=== PATIENT | female | born 1935 | race Caucasian/White ===

== ENCOUNTER → 2016-04-19 | Outpatient (CLI) | payer MEDICARE, BC ==
--- NOTE | 2016-04-19 16:37 | US ---
EXAMINATION TYPE: US carotid duplex BILAT DATE OF EXAM: 04/19/2016 3:53 PM COMPARISON: NONE CLINICAL HISTORY: R09.89 BRUIT OF LT CAROTID ARTERY. EXAM MEASUREMENTS: RIGHT: Peak Systolic Velocity (PSV) cm/sec ----- Right CCA: 103.0 ----- Right ICA: 203.0 ----- Right ECA: 138.0 ICA/CCA ratio: 1.9 RIGHT: End Diastole cm/sec ----- Right CCA: 14.5 ----- Right ICA: 46.5 ----- Right ECA: 10.4 LEFT: Peak Systolic Velocity (PSV) cm/sec ----- Left CCA: 120.0 ----- Left ICA: 148.0 ----- Left ECA: 224.0 ICA/CCA ratio: 1.2 LEFT: End Diastole cm/sec ----- Left CCA: 21.2 ----- Left ICA: 29.7 ----- Left ECA: 9.3 VERTEBRALS (direction of flow): Right Vertebral: Antegrade Left Vertebral: unable to detect TECHNOLOGIST IMPRESSION: extensive plaque throughout all vessels, elevated velocities in right ICA a nd left ICA and ECA. Grayscale, color Doppler, spectral Doppler imaging performed of the carotid arteries IMPRESSION: Hemodynamic significant stenosis of the proximal internal carotid artery on the right co rresponding to approximately 50-69% diameter stenosis by Doppler criteria, and indirect measurement o f carotid stenosis. There is common carotid artery disease bilaterally. Consider carotid CTA Criteria for Assigning % of Stenosis / Diameter reduction (Estimation based on the indirect measurements of the internal carotid artery velocities (ICA PSV). 1. Normal (no stenosis)=ICA PSV < 125 cm/s: ratio < 2.0: ICA EDV<40 cm/s. 2. Less than 50% stenosis=ICA PSV < 125 cm/s: ratio < 2.0: ICA EDV<40 cm/s. 3. 50 to 69% stenosis=ICA PSV of 125 to 230 cm/s: ration 2.0 ? 4.0: ICA EDV 40-100 cm/s. 4. Greater than 70% stenosis to near occlusion= ICA PSV > 230 cm/s: ratio > 4.0: ICA EDV > 100 cm/s. 5. Near occlusion= ICA PSV velocities may be low or undetectable: variable ratio and ICA EDV. 6. Total occlusion=unable to detect flow.
--- NOTE | 2016-04-23 06:49 | MM ---
Reason for exam: screening (asymptomatic). Last mammogram was performed 1 year and 1 month ago. History: Patient is postmenopausal and has history of other cancer at age 73. Family history of breast cancer in maternal grandmother. Took progesterone for 3 months. Physical Findings: A clinical breast exam by your physician is recommended on an annual basis and results should be correlated with mammographic findings. MG 3D Screening Mammo W/Cad Bilateral CC and MLO view(s) were taken. Prior study comparison: March 29, 2015, bilateral MG 3d diag mammo w/cad JASON. September 05, 2014, right breast MG diagnostic mammo RT w CAD. March 18, 2014, right breast MG work up mamm w CAD RT. March 08, 2014, bilateral MG screening mammo w CAD. March 01, 2013, bilateral digital screening mammo w/CAD. There are scattered fibroglandular densities. A nodular asymmetry in the right breast just medial to the retroareolar plane appears more defined and incompletely disperses on tomosynthesis. ASSESSMENT: Incomplete: need additional imaging evaluation, BI-RAD 0 RECOMMENDATION: Special view mammogram of the right breast. If lesion persists on supplemental views, image directed ultrasound is recommended. [facility] will attempt to contact patient to return for supplemental views and ultrasound if indicated.
== END | disposition home or self-care (01) ==
LOC: RADMAMWWP 14:37
PROVIDERS: ATTEND Family Medicine
DX: Z12.31 Encounter for screening mammogram for malignant neoplasm of breast (principal); I65.21 Occlusion and stenosis of right carotid artery; R92.2 Inconclusive mammogram
CPT/HCPCS: 77063; 93880; G0202

== ENCOUNTER → 2016-05-07 | Outpatient (CLI) | payer MEDICARE, BC ==
--- NOTE | 2016-05-08 07:26 | MM ---
Reason for exam: additional evaluation requested from abnormal screening. Last mammogram was performed 1 month ago. History: Patient is postmenopausal and has history of other cancer at age 73. Family history of breast cancer in maternal grandmother. Took progesterone for 3 months. Physical Findings: Nurse did not find any significant physical abnormalities on exam. MG 3D Work Up W/Cad RT LM and spot compression CC view(s) were taken of the right breast. Prior study comparison: April 19, 2016, bilateral MG 3d screening mammo w/cad. March 29, 2015, bilateral MG 3d diag mammo w/cad JASON. September 05, 2014, right breast MG diagnostic mammo RT w CAD. There are scattered fibroglandular densities. 4mm round lesion does not completely go away on spot CC view not clearly seen on lateral view. These results were verbally communicated with the patient and result sheet given to the patient on 05/07/16. ASSESSMENT: Probably benign, BI-RAD 3 RECOMMENDATION: Follow-up diagnostic mammogram of the right breast in 6 months.
== END | disposition home or self-care (01) ==
LOC: RADMAMWWP 14:42
PROVIDERS: ATTEND Family Medicine
DX: R92.8 Other abnormal and inconclusive findings on diagnostic imaging of breast (principal)
CPT/HCPCS: G0206; G0279

== ENCOUNTER → 2016-11-19 | Outpatient (CLI) | payer MEDICARE, BC ==
--- NOTE | 2016-11-19 14:16 | MM ---
Reason for exam: follow-up at short interval from prior study. Last mammogram was performed 6 months ago. History: Patient is postmenopausal and has history of other cancer at age 73. Family history of breast cancer in maternal grandmother. Took progesterone for 3 months. Physical Findings: Nurse did not find any significant physical abnormalities on exam. MG 3D Diag Mammo W/Cad RT CC and MLO view(s) were taken of the right breast. Prior study comparison: May 07, 2016, right breast MG 3d work up w/cad RT. April 19, 2016, bilateral MG 3d screening mammo w/cad. There are scattered fibroglandular densities. Benign calcifications. There is no discrete abnormality including area of concern. No significant new findings when compared with previous films. These results were verbally communicated with the patient and result sheet given to the patient on 11/19/16. ASSESSMENT: Benign, BI-RAD 2 RECOMMENDATION: Return to routine screening mammogram schedule for both breasts. Back on schedule.
== END | disposition home or self-care (01) ==
LOC: RADMAMWWP 12:51
PROVIDERS: ATTEND Family Medicine
DX: R92.8 Other abnormal and inconclusive findings on diagnostic imaging of breast (principal)
CPT/HCPCS: G0206; G0279

== ENCOUNTER → 2017-06-25 | Outpatient (CLI) | payer MEDICARE, BC ==
--- NOTE | 2017-06-26 10:11 | MM ---
Reason for exam: screening (asymptomatic). Last mammogram was performed 7 months ago. History: Patient is postmenopausal and has history of other cancer at age 73. Family history of breast cancer in maternal grandmother. Took progesterone for 3 months. Physical Findings: A clinical breast exam by your physician is recommended on an annual basis and results should be correlated with mammographic findings. MG 3D Screening Mammo W/Cad Bilateral CC and MLO view(s) were taken. Prior study comparison: November 19, 2016, right breast MG 3d diag mammo w/cad RT. May 07, 2016, right breast MG 3d work up w/cad RT. The breast tissue is heterogeneously dense. This may lower the sensitivity of mammography. Finding: There are typically benign vascular calcifications. No suspicious abnormality. No significant changes in finding since November 19, 2016 and May 07, 2016. ASSESSMENT: Benign, BI-RAD 2 RECOMMENDATION: Routine screening mammogram of both breasts in 1 year.
== END | disposition home or self-care (01) ==
LOC: RADMAMWWP 12:53
PROVIDERS: ATTEND Family Medicine
DX: Z12.31 Encounter for screening mammogram for malignant neoplasm of breast (principal)
CPT/HCPCS: 77063; 77067

== ENCOUNTER → 2018-07-23 | Outpatient (CLI) | payer MEDICARE, BC ==
--- NOTE | 2018-07-24 08:57 | MM ---
Reason for exam: screening (asymptomatic). Last mammogram was performed 1 year and 1 month ago. History: Patient is postmenopausal and has history of other cancer at age 73. Family history of breast cancer in maternal grandmother. Took progesterone for 3 months. Physical Findings: A clinical breast exam by your physician is recommended on an annual basis and results should be correlated with mammographic findings. MG 3D Screening Mammo W/Cad Bilateral CC and MLO view(s) were taken. Prior study comparison: June 25, 2017, bilateral MG 3d screening mammo w/cad. November 19, 2016, right breast MG 3d diag mammo w/cad RT. The breast tissue is heterogeneously dense. This may lower the sensitivity of mammography. Vascular calcifications. There is no discrete abnormality. No significant changes when compared with prior studies. ASSESSMENT: Benign, BI-RAD 2 RECOMMENDATION: Routine screening mammogram of both breasts in 1 year.
== END | disposition home or self-care (01) ==
LOC: RADMAMWWP 13:06
PROVIDERS: ATTEND Family Medicine
DX: Z12.31 Encounter for screening mammogram for malignant neoplasm of breast (principal)
CPT/HCPCS: 77063; 77067

== ENCOUNTER → 2019-04-27 | Outpatient (CLI) | payer MEDICARE, BC ==
--- NOTE | 2019-04-27 15:39 | ECHOF ---
Referral Reason:I10 Hypertension R01.1 cardiac murmur MEASUREMENTS -------- HEIGHT: 167.6 cm WEIGHT: 65.8 kg BP: IVSd: 1.1 cm (0.6 - 1.1) LVIDd: 3.6 cm (3.9 - 5.3) LVPWd: 1.1 cm (0.6 - 1.1) IVSs: 1.8 cm LVIDs: 2.1 cm LVPWs: 1.7 cm RVIDd: 2.9 cm (< 3.3) LAESV Index (A-L): 47.62 ml/m Ao Diam: 3.1 cm (2.0 - 3.7) LA Diam: 3.8 cm (2.7 - 3.8) AV Cusp: 2.0 cm (1.5 - 2.6) EPSS: 0.6 cm MV E Lb: 0.70 m/s MV DecT: 248 ms MV A Lb: 0.96 m/s MV E/A Ratio: 0.73 AV maxP.70 mmHg AV meanP.91 mmHg AR PHT: 364 ms RAP: 5.00 mmHg RVSP: 22.56 mmHg MV EF SLOPE: 156.24 mm/s (70 - 150) MV EXCURSION: 11.45 mm (> 18.000) TAPSE: 22.91 mm FINDINGS -------- Sinus rhythm. This was a technically good study. The left ventricular size is normal. Left ventricular wall thickness is normal. Overall left vent ricular systolic function is normal with, an EF between 55 - 60 %. Increased LAP Grade 2 Diastolic Dysfunction. The right ventricle is normal in size. The right ventricular systolic function is normal. LA is severely dilated >40 ml/m2 The right atrial size is normal. Aortic valve is trileaflet and is mildly thickened. There is mild aortic valve sclerosis. Trace a mount of aortic regurgitation. Peak/mean gradient across the Aortic Valve is 8.70mmHg / 4.91mmHg. The mitral valve is normal. Mild mitral regurgitation is present. The tricuspid valve appears structurally normal. Mild tricuspid regurgitation present. Right vent ricular systolic pressure is normal at < 35 mmHg. There is no pulmonic regurgitation present. The aortic root size is normal. Normal inferior vena cava with normal inspiratory collapse consistent with estimated right atrial pre ssure of 5 mmHg. There is no pericardial effusion. CONCLUSIONS -------- 1. Sinus rhythm. 2. This was a technically good study. 3. The left ventricular size is normal. 4. Left ventricular wall thickness is normal. 5. Overall left ventricular systolic function is normal with, an EF between 55 - 60 %. 6. Increased LAP Grade 2 Diastolic Dysfunction. 7. The right ventricle is normal in size. 8. The right ventricular systolic function is normal. 9. LA is severely dilated >40 ml/m2 10. The right atrial size is normal. 11. Aortic valve is trileaflet and is mildly thickened. 12. There is mild aortic valve sclerosis. 13. Trace amount of aortic regurgitation. 14. Peak/mean gradient across the Aortic Valve is 8.70mmHg / 4.91mmHg. 15. The mitral valve is normal. 16. Mild mitral regurgitation is present. 17. The tricuspid valve appears structurally normal. 18. Mild tricuspid regurgitation present. 19. Right ventricular systolic pressure is normal at < 35 mmHg. 20. There is no pulmonic regurgitation present. 21. The aortic root size is normal. 22. Normal inferior vena cava with normal inspiratory collapse consistent with estimated right atrial pressure of 5 mmHg. 23. There is no pericardial effusion. MANAGER MEDICAID: Rosemary Nolan RDCS
== END | disposition home or self-care (01) ==
LOC: RADECHMAIN 12:00
PROVIDERS: ATTEND Family Medicine
DX: I08.1 Rheumatic disorders of both mitral and tricuspid valves (principal)
CPT/HCPCS: 93306

== ENCOUNTER 2019-05-14 19:25 | Emergency (ER) | payer MEDICARE, BC ==
[2019-05-14 19:34] VITALS: RESP 18; TEMP 97.6
--- NOTE | 2019-05-14 19:52 | ED ---
General Adult HPI - General Chief complaint: Arrhythmia/Palpitations Stated complaint: irregular heartbeat Time Seen by Provider: 05/14/19 19:44 Source: patient Mode of arrival: wheelchair Limitations: no limitations - History of Present Illness Initial comments: 83-year-old female patient presents to the emergency department today for evaluation of irregular heartbeat. Patient states that yesterday she was checking her pulse and noticed that her beats were irregular. States it would be to couple times and cause and then she will get 10 rapid beats afterwards. Patient states she is not experiencing any symptoms she just occasionally checks her pulse. States that she is not having any dizziness, weakness, chest pain, shortness of breath, nausea, or vomiting. States that she does have a history of hypertension and macular degeneration but no other medical conditions. She has no cardiac history. States that she knows that she has occasional PVCs but this seems different. Patient is a retired nurse. Patient denies any recent rash, fever, chills, cough, abdominal pain, nausea, vomiting, diarrhea, constipation, back pain, numbness, tingling, hematuria, dysuria, urinary urgency, urinary frequency, headache, visual changes, or any other complaints. - Related Data Allergies Allergy/AdvReac Type Severity Reaction Status Date / Time Penicillins Allergy tongue Verified 05/14/19 19:33 itching Review of Systems ROS Statement: Those systems with pertinent positive or pertinent negative responses have been documented in the HPI. ROS Other: All systems not noted in ROS Statement are negative. Past Medical History Past Medical History: Hypertension Additional Past Medical History / Comment(s): macular degeneration, vascular, PVCs, History of Any Multi-Drug Resistant Organisms: None Reported Past Surgical History: No Surgical Hx Reported Past Psychological History: No Psychological Hx Reported Smoking Status: Former smoker Past Alcohol Use History: Occasional Past Drug Use History: None Reported General Exam Limitations: no limitations General appearance: alert, in no apparent distress, other (This is a well- developed, well-nourished, nontoxic-appearing elderly female patient in no acute distress. Vital signs upon presentation are temperature 97.6F, pulse 81, respirations 18, blood pressure 187/95, pulse ox 98% on room air.) Eye exam: Present: normal appearance, PERRL, EOMI. Absent: scleral icterus, conjunctival injection, periorbital swelling ENT exam: Present: normal exam, normal oropharynx, mucous membranes moist Neck exam: Present: normal inspection. Absent: tenderness, meningismus, lymphadenopathy Respiratory exam: Present: normal lung sounds bilaterally. Absent: respiratory distress, wheezes, rales, rhonchi, stridor Cardiovascular Exam: Present: regular rate, normal rhythm, normal heart sounds. Absent: systolic murmur, diastolic murmur, rubs, gallop, clicks Neurological exam: Present: alert, oriented X3, CN II-XII intact Psychiatric exam: Present: normal affect, normal mood Skin exam: Present: warm, dry, intact, normal color. Absent: rash Course Vital Signs 05/14/19 05/14/19 19:28 21:31 Temperature 97.6 F Pulse Rate 81 68 Respiratory 18 18 Rate Blood Pressure 187/95 151/84 O2 Sat by Pulse 98 96 Oximetry EKG Findings - EKG Comments: EKG Findings:: EKG obtained at 1940 shows sinus rhythm with occasional PVCs. Ventricular rate is 86, AR interval 164, QRS duration 92, QT 370, QTC 442. No evidence of ST elevation or depression Medical Decision Making - Medical Decision Making 83-year-old female patient presents the emergency department today for evaluation of palpitations. Physical examination is unremarkable. Patient is feeling well and having no associated symptoms. Labs reviewed and are u nremarkable. She was informed of her low TSH level, her free T4 was normal so she is instructed to follow-up with her doctor regarding this. Cardiac monitoring was reviewed, shows no evidence of ectopy or dysrhythmia. EKG was unremarkable. Patient be discharged follow up with her primary care physician for recheck in 1-2 days. She is urged discuss possible Holter monitoring. Return parameters were discussed in detail. She verbalizes understanding and agrees with this plan. - Lab Data Result diagrams: 05/14/19 20:16 05/14/19 20:16 Lab Results 05/14/19 05/14/19 05/14/19 Range/Units 20:16 20:16 20:16 WBC 7.7 (3.8-10.6) k/uL RBC 4.70 (3.80-5.40) m/uL Hgb 14.1 (11.4-16.0) gm/dL Hct 44.2 (34.0-46.0) % MCV 94.0 (80.0-100.0) fL MCH 30.0 (25.0-35.0) pg MCHC 31.9 (31.0-37.0) g/dL RDW 12.8 (11.5-15.5) % Plt Count 219 (150-450) k/uL Neutrophils % 67 % Lymphocytes % 21 % Monocytes % 8 % Eosinophils % 2 % Basophils % 0 % Neutrophils # 5.1 (1.3-7.7) k/uL Lymphocytes # 1.6 (1.0-4.8) k/uL Monocytes # 0.6 (0-1.0) k/uL Eosinophils # 0.1 (0-0.7) k/uL Basophils # 0.0 (0-0.2) k/uL PT 10.1 (9.0-12.0) sec INR 1.0 (<1.2) APTT 23.5 (22.0-30.0) sec Sodium 137 (137-145) mmol/L Potassium 4.4 (3.5-5.1) mmol/L Chloride 105 (98-107) mmol/L Carbon Dioxide 27 (22-30) mmol/L Anion Gap 5 mmol/L BUN 23 H (7-17) mg/dL Creatinine 0.84 (0.52-1.04) mg/dL Est GFR (CKD-EPI)AfAm 73 (>60 ml/min/1.73 sqM) Est GFR (CKD-EPI)NonAf 64 (>60 ml/min/1.73 sqM) Glucose 104 H (74-99) mg/dL Calcium 9.8 (8.4-10.2) mg/dL Magnesium 2.0 (1.6-2.3) mg/dL Total Bilirubin 0.5 (0.2-1.3) mg/dL AST 23 (14-36) U/L ALT 12 (4-34) U/L Alkaline Phosphatase 104 (38-126) U/L Troponin I (0.000-0.034) ng/mL Total Protein 6.4 (6.3-8.2) g/dL Albumin 3.8 (3.5-5.0) g/dL TSH 0.037 L (0.465-4.680) mIU/L Free T4 1.33 (0.78-2.19) ng/dL 05/14/19 Range/Units 20:16 WBC (3.8-10.6) k/uL RBC (3.80-5.40) m/uL Hgb (11.4-16.0) gm/dL Hct (34.0-46.0) % MCV (80.0-100.0) fL MCH (25.0-35.0) pg MCHC (31.0-37.0) g/dL RDW (11.5-15.5) % Plt Count (150-450) k/uL Neutrophils % % Lymphocytes % % Monocytes % % Eosinophils % % Basophils % % Neutrophils # (1.3-7.7) k/uL Lymphocytes # (1.0-4.8) k/uL Monocytes # (0-1.0) k/uL Eosinophils # (0-0.7) k/uL Basophils # (0-0.2) k/uL PT (9.0-12.0) sec INR (<1.2) APTT (22.0-30.0) sec Sodium (137-145) mmol/L Potassium (3.5-5.1) mmol/L Chloride (98-107) mmol/L Carbon Dioxide (22-30) mmol/L Anion Gap mmol/L BUN (7-17) mg/dL Creatinine (0.52-1.04) mg/dL Est GFR (CKD-EPI)AfAm (>60 ml/min/1.73 sqM) Est GFR (CKD-EPI)NonAf (>60 ml/min/1.73 sqM) Glucose (74-99) mg/dL Calcium (8.4-10.2) mg/dL Magnesium (1.6-2.3) mg/dL Total Bilirubin (0.2-1.3) mg/dL AST (14-36) U/L ALT (4-34) U/L Alkaline Phosphatase (38-126) U/L Troponin I <0.012 (0.000-0.034) ng/mL Total Protein (6.3-8.2) g/dL Albumin (3.5-5.0) g/dL TSH (0.465-4.680) mIU/L Free T4 (0.78-2.19) ng/dL - Radiology Data Radiology results: report reviewed, image reviewed Two-view x-ray of the chest is obtained. Report is reviewed in its entirety. Impression by Dr. Brown shows probably COPD. No active cardiopulmonary disease. Atheromatous aorta. Disposition Clinical Impression: Palpitations Disposition: HOME SELF-CARE Condition: Good Instructions (If sedation given, give patient instructions): Heart Palpitations (ED) Additional Instructions: Follow-up through primary care physician for recheck in 1-2 days. Discussed possible heart monitoring. Return to the emergency department immediately for any new, worsening, or concerning symptoms. Is patient prescribed a controlled substance at d/c from ED?: No Referrals: Joey Freed [Primary Care Provider] - 1-2 days Time of Disposition: 21:40
[2019-05-14 20:27] LABS: Basophils % (A) 0 %; Eosinophils # (A) 0.1 k/uL (0-0.7); Eosinophils % (A) 2 %; HCT 44.2 % (34.0-46.0); HGB 14.1 gm/dL (11.4-16.0); Lymphocytes # (A) 1.6 k/uL (1.0-4.8); Lymphocytes % (A) 21 %; MCHC 31.9 g/dL (31.0-37.0); Monocytes # (A) 0.6 k/uL (0-1.0); Monocytes % (A) 8 %; Neutrophils # (A) 5.1 k/uL (1.3-7.7); Neutrophils % (A) 67 %; Platelet Count 219 k/uL (150-450); RDW 12.8 % (11.5-15.5); WBC 7.7 k/uL (3.8-10.6)
[2019-05-14 20:35] LABS: Albumin 3.8 g/dL (3.5-5.0); Calcium 9.8 mg/dL (8.4-10.2); Potassium 4.4 mmol/L (3.5-5.1); Total Bilirubin 0.5 mg/dL (0.2-1.3); Total Protein 6.4 g/dL (6.3-8.2)
[2019-05-14 20:38] LABS: Partial Thromboplastin Time 23.5 sec (22.0-30.0); Prothrombin Time 10.1 sec (9.0-12.0)
--- NOTE | 2019-05-14 20:39 | XR ---
EXAMINATION TYPE: XR chest 2V DATE OF EXAM: 05/14/2019 COMPARISON: NONE HISTORY: Dysrhythmia TECHNIQUE: FINDINGS: Heart is slightly enlarged. There is no heart failure. Thoracic aorta is atheromatous. Ther e is pulmonary hyperinflation with flattening of the diaphragm. There is old right humeral neck heale d fracture. There are chest leads. There are no hilar masses. IMPRESSION: There is probably COPD. No active cardiopulmonary disease. Atheromatous aorta.
[2019-05-14 21:30] LABS: T4, Free (Free Thyroxine) 1.33 ng/dL (0.78-2.19)
[2019-05-14 21:31] VITALS: BP 151/84; PULSE 68
== END 2019-05-14 22:04 | disposition home or self-care (01) ==
LOC: EC 19:25
DX: R00.2 Palpitations (principal); I49.3 Ventricular premature depolarization; Z87.891 Personal history of nicotine dependence; Z88.0 Allergy status to penicillin; Z86.79 Personal history of other diseases of the circulatory system
CPT/HCPCS: 36415; 71046; 80053; 83735; 84439; 84443; 84484; 85025; 85610; 85730; 93005; 99285

== ENCOUNTER 2019-09-09 07:23 | Day surgery (SDC) | payer MEDICARE, BC ==
[2019-09-07 09:05] VITALS: BMI 23.3
[~2019-09-09 07:23] MED LIST: LACTATED RINGERS 1,000 ML IV SCH; SODIUM CHLORIDE 0.9% 1,000 ML IV SCH
[2019-09-09 08:28] LABS: Calcium 9.8 mg/dL (8.4-10.2); Potassium 4.8 mmol/L (3.5-5.1)
[2019-09-09] MEDS ORDERED: PROPOFOL 10 MG/ML 20 ML VIAL IV ONE (08:56)
[2019-09-09] MEDS ORDERED: SODIUM CHLORIDE 0.9% 1,000 ML IV SCH ×2 (09:45)
--- NOTE | 2019-09-09 09:49 | P.PCN ---
Date of Procedure: 09/09/19 Preoperative Diagnosis: Atrial fibrillation Postoperative Diagnosis: Conversion to sinus rhythm Procedure(s) Performed: SACHIN and cardioversion Description of Procedure: SACHIN: INDICATION: Atrial fibrillation associated with shortness of breath CONSENT:. Informed verbal consent was obtained PROCEDURE:. Patient was brought to the lab in fasting state. Patient was prepped and draped in the usual fashion. Department of anesthesia provided IV anesthesia with propofol. Patient's throat was sprayed with Hurricaine. A lubricated Omni probe was introduced into the oropharynx and was advanced into the esophagus. Multiple views were obtained. Patient tolerated the procedure well. Color ulcer and continuous-wave Doppler studies were performed. Saline contrast bubble injection is performed FINDINGS:. The aorta is tricuspid and function normally. Mitral valve showed mild to moderate regurgitation. Left atrial appendage is free of any clot. Interatrial septum is intact without any spontaneous shunt. Saline was pulled injection did not reveal any crossing of the bubbles. LV function could not be accurately assess. IMPRESSION: No clot in left atrial appendage. Mild to moderate mitral regurgitation. No PFO. LV function could not be accurately assessed PLAN: Proceed with cardioversion. It CARDIOVERSION: After completion of the SACHIN, anterior-posterior paddles were applied. A single shock of 200 J was applied. Patient converted back to sinus rhythm. Patient was mildly bradycardic and mildly hypotensive which gradually improved. Final impression: Successful conversion to sinus rhythm. Plan: He patient remains stable she will be discharged home. The dose of the metoprolol will be cut back to 25 mg by mouth twice a day. May consider adding flecainide, if heart rate improves.
[2019-09-10 08:36] VITALS: BP 119/65; PULSE 60; RESP 18; TEMP 97.6
== END 2019-09-09 11:17 | disposition home or self-care (01) ==
LOC: CATHCVL 07:23
PROVIDERS: ATTEND Internal Medicine Cardiovascular Disease
DX: I48.19 Other persistent atrial fibrillation (principal); I34.0 Nonrheumatic mitral (valve) insufficiency; I49.3 Ventricular premature depolarization; I10 Essential (primary) hypertension; Z88.0 Allergy status to penicillin; Z87.891 Personal history of nicotine dependence; Z79.01 Long term (current) use of anticoagulants; Z79.82 Long term (current) use of aspirin; Z79.899 Other long term (current) drug therapy
CPT/HCPCS: 93312; 93320; 93325; 92960; 80048; J2704

== ENCOUNTER → 2019-10-27 | Outpatient (CLI) | payer MEDICARE, BC ==
--- NOTE | 2019-10-28 10:54 | NM ---
EXAMINATION TYPE: NM thyroid image w uptake DATE OF EXAM: 10/28/2019 COMPARISON: NONE HISTORY: 84-year-old female hyperthyroidism, E05.90 TECHNIQUE: Thyroid iodine uptake is calculated and images performed after the oral administration of 287 uCi 1-123 Capsule. FINDINGS: There is a focal area of increased uptake along the medial left midpole. This can be corroborated wit h a thyroid ultrasound exam. Somewhat decreased background of thyroid parenchymal uptake. The 4 hour iodine uptake is calculated at 5.1% (normal range 8-14%). The 24-hour iodine uptake is calculated at 18.3% (normal range 15-35%). IMPRESSION: Inconsistent/contradictory findings with apparent hot nodule in the left lobe on thyroid scan but low to low normal iodine uptake values. Thyroid ultrasound can assess for a discrete nodule. Further cli nical correlation and follow-up is recommended. A hyperfunctioning adenoma in the setting of subacute thyroiditis is an unusual possibility.
== END | disposition home or self-care (01) ==
LOC: RADNMMAIN 09:33
PROVIDERS: ATTEND Family Medicine
DX: E05.90 Thyrotoxicosis, unspecified without thyrotoxic crisis or storm (principal)
CPT/HCPCS: 78014; A9516

== ENCOUNTER → 2019-11-05 | Outpatient (CLI) | payer MEDICARE, BC ==
--- NOTE | 2019-11-08 09:26 | US ---
EXAMINATION TYPE: US thyroid st tissue head/neck DATE OF EXAM: 11/05/2019 COMPARISON: Correlation nuclear medicine thyroid scan 10/27/2019 CLINICAL HISTORY: 84-year-old female E05.90hyperthyroidism, E04.1 thyroid nodule. Technique: Multiple sonographic images of the thyroid gland are obtained. FINDINGS: GLAND SIZE: Right Lobe: 4.7 x 2.2x 2.0 cm Overall Parenchyma: heterogenous Left Lobe: 4.4 x 2.6 x 2.6 cm Overall Parenchyma: heterogeneous Isthmus Thickness: 0.2 cm NODULES RIGHT: # of nodules measured on right: 1. 0.9 X 0.7 x 0.6 cm cyst at the lower pole with well-defined margins. This nodule is taller than wide and shows no intranodular vascularity. There may be some minimal internal debris or subtle pleu ral-based nodularity. No prior LEFT: # of nodules measured on left: 1. Large 4.0 x 2.5 x 2.8 cm mixed solid cystic nodule at the mid pole with well-defined margins. Thi s nodule is wider than tall and shows intranodular vascularity. No prior ISTHMUS: # of nodules measured in the isthmus: 0 Bilateral neck scanned, no evidence of lymphadenopathy. Bobbin Doffer notes: Patient has sinewy neck with part of thyroid appearing to be inferior to clavicle. Technically difficult study, inferior portions not well visualized. IMPRESSION: 1. The touch up edger indicates difficult exam due to the patient's sinewy neck with extension of the lo wer poles behind the sternum. 2. Large mixed solid cystic nodule measuring 4.0 cm seems to correspond to the hot nodule on thyroid scan. The decision to biopsy should be made on a clinical basis.
== END | disposition home or self-care (01) ==
LOC: RADUSWWP 15:32
PROVIDERS: ATTEND Family Medicine
DX: E04.1 Nontoxic single thyroid nodule (principal)
CPT/HCPCS: 76536

== ENCOUNTER 2019-11-30 13:05 | Day surgery (SDC) | payer MEDICARE, BC ==
[2019-11-30 14:39] VITALS: RESP 18; TEMP 97.9
[2019-11-30 14:46] VITALS: BP 134/80; PULSE 90
--- NOTE | 2019-11-30 15:07 | US ---
EXAMINATION TYPE: US FNA thyroid first lesion DATE OF EXAM: 11/30/2019 COMPARISON: Ultrasound 11/05/2019 HISTORY: Thyroid nodule. Maximal barrier technique was utilized. After informed consent, skin overlying the left lobe thyroid nodule was localized with ultrasound and the overlying skin prepped and draped. Ultrasound was utili zed using sterile technique. Lidocaine was used for local anesthesia. Five passes with a 25-gauge ne edle were made into the nodule and aspirated specimen was submitted to cytology. Following the proce dure hemostasis achieved. No immediate complication. The patient discharged in stable condition. IMPRESSION: STATUS POST ULTRASOUND GUIDED FINE NEEDLE ASPIRATION OF LEFT THYROID NODULE, PATHOLOGY IS PENDING. THIS PROCEDURE WAS PERFORMED BY THE UNDERSIGNED.
== END 2019-11-30 14:25 | disposition home or self-care (01) ==
LOC: RADPROMAIN 13:05
PROVIDERS: ATTEND Surgery
DX: E04.1 Nontoxic single thyroid nodule (principal); Z88.0 Allergy status to penicillin
CPT/HCPCS: 10005; 88173; 88305

== ENCOUNTER 2019-12-13 08:13 | Inpatient (IN) | payer MEDICARE, BC ==
[2019-12-08 11:36] VITALS: BMI 22.6
[~2019-12-13 08:13] MED LIST changes: +ACETAMINOPHEN TAB 500 MG TAB PO ONE; +DEXAMETHASONE SOD PHOSPHATE 10 MG/ML 1 ML VIAL IV ONE; +HEPARIN SODIUM,PORCINE 5,000 UNIT/ML 1 ML VIAL SQ ONE; -LACTATED RINGERS 1,000 ML IV SCH; +MORPHINE SULFATE 2 MG/ML SYRINGE IV PRN; +ONDANSETRON 4 MG/2 ML VIAL IVP ONE; +Pre Op ABX Message 1 EACH MISC MISCELLANE ONE; +SCOPOLAMINE 1.5MG/72HR PATCH TRANSDERM ONE; -SODIUM CHLORIDE 0.9% 1,000 ML IV SCH
[2019-12-13] MEDS: LACTATED RINGERS 1,000 ML IV SCH (09:25)
[2019-12-13 09:36] LABS: Albumin 3.6 g/dL (3.5-5.0); Calcium 9.8 mg/dL (8.4-10.2); Total Bilirubin 1.4 mg/dL (0.2-1.3); Total Protein 6.7 g/dL (6.3-8.2)
[2019-12-13 09:58] LABS: INR 1.2 (<1.2); Prothrombin Time 12.6 sec (9.0-12.0)
[2019-12-13 10:08] LABS: Potassium 4.4 mmol/L (3.5-5.1)
--- NOTE | 2019-12-13 10:10 | P.GSHP ---
History of Present Illness H&P Date: 12/13/19 Chief Complaint: Left thyroid nodule This is a 4-year-old female who presents today for left thyroidectomy. Patient has a large 4 cm left thyroid nodule. The thyroid was solid and cystic in component. It is causing some compressive symptoms. Patient returns today for left thyroidectomy. She is aware the risk of surgery including injury to the recurrent laryngeal nerve and parathyroid glands. And vocal hoarseness Past Medical History Past Medical History: Atrial Fibrillation, Eye Disorder, Hypertension, Thyroid Disorder, Vascular Disorder Additional Past Medical History / Comment(s): macular degeneration, PVCs, thyroid nodule, edema bipin legs History of Any Multi-Drug Resistant Organisms: None Reported Past Surgical History: No Surgical Hx Reported Additional Past Surgical History / Comment(s): bipin cataracts, thyroid biopsy Past Anesthesia/Blood Transfusion Reactions: Family History of Problems w/ Anesthesia Additional Past Anesthesia/Blood Transfusion Reaction / Comment(s): father from postop PE Smoking Status: Former smoker - Past Family History Father Family Medical History: Pulmonary Embolus Medications and Allergies Home Medications Medication Instructions Recorded Confirmed Type Apixaban [Eliquis] 2.5 mg PO BID 09/07/19 12/08/19 History Cholecalciferol [Vitamin D3 (25 1,000 unit PO DAILY 09/07/19 12/08/19 History Mcg = 1000 Iu)] Vit C/E/Zn/Coppr/Lutein/Zeaxan 1 each PO BID 09/07/19 12/08/19 History [Preservision Areds 2 Softgel] lisinopriL [Zestril] 20 mg PO HS 09/07/19 12/08/19 History Calcium Carbonate [Tums] 500 mg PO DAILY 11/22/19 12/08/19 History Furosemide [Lasix] 40 mg PO DAILY 11/22/19 12/08/19 History Potassium Chloride 16 meq PO DAILY 11/22/19 12/08/19 History Metoprolol Tartrate [Lopressor] 50 mg PO 1900 12/08/19 12/08/19 History Metoprolol Tartrate [Lopressor] 75 mg PO 0800,1330 12/08/19 12/08/19 History Allergies Allergy/AdvReac Type Severity Reaction Status Date / Time Penicillins Allergy tongue Verified 12/13/19 08:57 itching Surgical - Exam Vital Signs Temp Pulse Resp BP 97.1 F L 43 L 23 152/88 12/13/19 08:34 12/13/19 08:34 12/13/19 08:34 12/13/19 08:34 - General well developed, well nourished, no distress - Eyes PERRL - ENT normal pinna - Neck no masses thyroid nodule: left (4 cm) - Respiratory normal expansion - Cardiovascular Rhythm: regular - Abdomen Abdomen: soft, non tender Results - Labs Abnormal Lab Results - Last 24 Hours (Table) 12/13/19 Range/Units 09:16 PT 12.6 H (9.0-12.0) sec INR 1.2 H (<1.2) Assessment and Plan Assessment: 4 cm thyroid left nodule. We'll perform a left thyroidectomy.
[2019-12-13] MEDS ORDERED: SUCCINYLCHOLINE CHLORIDE 100 MG/5 ML SYR IV ONE (10:32)
[2019-12-13] MEDS ORDERED: PHENYLEPHRINE-0.9% NACL SYG 1 MG/10 ML SYRINGE ONE (10:32)
[2019-12-13] MEDS ORDERED: fentaNYL (PF) 50 MCG/ML 2 ML AMP ONE (10:32)
[2019-12-13] MEDS ORDERED: PROPOFOL 10 MG/ML 20 ML VIAL IV ONE (10:32)
[2019-12-13] MEDS ORDERED: MIDAZOLAM 2 MG/2 ML VIAL ONE (10:32)
[2019-12-13] MEDS ORDERED: ceFAZolin 1,000 MG VIAL IVPB ONE (10:55)
[2019-12-13] MEDS ORDERED: NALOXONE 0.4 MG/ML 1 ML VIAL IV PRN (11:51)
[2019-12-13] MEDS ORDERED: LACTATED RINGERS 1,000 ML IV ONE (11:51)
[2019-12-13] MEDS ORDERED: HYDROcodone/APAP 5-325MG 1 EACH TAB PO PRN (11:51)
[2019-12-13] MEDS ORDERED: ONDANSETRON 4 MG/2 ML VIAL IVP PRN (11:51)
--- NOTE | 2019-12-13 11:51 | P.OP ---
Date of Procedure: 12/13/19 Preoperative Diagnosis: Left thyroid nodule Postoperative Diagnosis: Left thyroid nodule Procedure(s) Performed: Left thyroidectomy Anesthesia: JUDITH Surgeon: Zach Miller Estimated Blood Loss (ml): 10 Pathology: other (Left thyroid) Condition: stable Disposition: PACU Description of Procedure: The patient's placed on the operating table in the supine position. She received general anesthesia. Her neck was extended and then prepped and draped usual sterile fashion. A standard Willard incision was made approximately 2 cm below the sternal notch. Using left cautery the subcutaneous tissue and platysma was divided. Allis clamps were then used to grasp the platysma and th en the superior and inferior platysma flaps were created using cautery. The retractors placed in the wound. The strap muscles were divided in the midline using left cautery and then using a pusher retractor the left thyroid was exposed. The left thyroid gland was then rotated medially into the wound. The superior thyroid vessels were then dissected using a right angle retractor and then ligated with the inferior thyroid vessels were then ligated in similar fashion using 2-0 silk ties. The gland was then further rotated medially. The recurrent laryngeal nerve was identified and preserved. The superior and inferior parathyroid glands were preserved. The middle thyroid vessels were ligated with 3-0 silk ties. The thyroid isthmus and then divided using the Harmonic scissors. The specimens of pathology. The wound was packed for hemostasis. There is no bleeding seen. The strap muscles were then closed using 2-0 Vicryl suture. The platysma was then closed with 2-0 Vicryl suture. Skin was closed interrupted 3-0 Monocryl suture. Dermabond was applied. Patient top she will was sent to recovery room stable condition.
--- NOTE | 2019-12-13 15:24 | P.CONS ---
History of Present Illness - Reason for Consult Consult date: 12/13/19 A fib Requesting physician: Zach Miller - Chief Complaint neck pain - History of Present Illness Patient is an 84 yo CF with a hx of a fib treated with cardioversion now on xarelto and metoprolol, macular degeneration, and HTN who presented for elective left thyroidectomy for thyroid nodule with neck pressure. Patient seen and examined at bedside. She reports that she was found to have abnormal thyroid labs in May. She was diagnosed with A fib in August. She repor ts that she was having some pressure on her esophagus without difficulty in swallowing. No neck pain. She has been following with Dr. Freed and has underwent thyroid uptake scan, thyroid ultrasound, thyroid biopsy which was benign. She has not seen an silk presser. She follows with Dr. Merlos and Dr. Sethi for her A fib. No recent cough, cold, flu, nausea, vomiting, or diarrhea. Review of Systems Pertinent positives and negatives as discussed in HPI, a complete review of systems was performed and all other systems are negative. Past Medical History Past Medical History: Atrial Fibrillation, Eye Disorder, Hypertension, Thyroid Disorder, Vascular Disorder Additional Past Medical History / Comment(s): macular degeneration, PVCs, thyroid nodule, edema bipin legs History of Any Multi-Drug Resistant Organisms: None Reported Additional Past Surgical History / Comment(s): bipin cataracts, thyroid biopsy Past Anesthesia/Blood Transfusion Reactions: Family History of Problems w/ Anesthesia Additional Past Anesthesia/Blood Transfusion Reaction / Comm: father from postop PE Smoking Status: Former smoker Past Alcohol Use History: Daily Additional History: Cane when out due to macular degeneration - Past Family History Father Family Medical History: Pulmonary Embolus Medications and Allergies Home Medications Medication Instructions Recorded Confirmed Type Apixaban [Eliquis] 2.5 mg PO BID 09/07/19 12/08/19 History Cholecalciferol [Vitamin D3 (25 1,000 unit PO DAILY 09/07/19 12/08/19 History Mcg = 1000 Iu)] Vit C/E/Zn/Coppr/Lutein/Zeaxan 1 each PO BID 09/07/19 12/08/19 History [Preservision Areds 2 Softgel] lisinopriL [Zestril] 20 mg PO HS 09/07/19 12/08/19 History Calcium Carbonate [Tums] 500 mg PO DAILY 11/22/19 12/08/19 History Furosemide [Lasix] 40 mg PO DAILY 11/22/19 12/08/19 History Potassium Chloride 16 meq PO DAILY 11/22/19 12/08/19 History Metoprolol Tartrate [Lopressor] 50 mg PO 1900 12/08/19 12/08/19 History Metoprolol Tartrate [Lopressor] 75 mg PO 0800,1330 12/08/19 12/08/19 History Allergies Allergy/AdvReac Type Severity Reaction Status Date / Time Penicillins Allergy tongue Verified 12/13/19 08:57 itching Physical Exam Osteopathic Statement: *. No significant issues noted on an osteopathic structural exam other than those noted in the History and Physical/Consult. Vitals: Vital Signs Temp Pulse Pulse Resp BP BP Pulse Ox 12/13/19 13:05 96.5 F L 63 17 104/68 95 12/13/19 12:30 106 H 16 95/71 92 L 12/13/19 12:15 96 16 129/65 95 12/13/19 12:01 107 H 18 119/75 100 12/13/19 11:46 97.8 F 95 20 113/59 97 12/13/19 09:30 109 H 12/13/19 08:34 97.1 F L 43 L 23 152/88 Intake and Output 12/12/19 12/13/19 12/13/19 22:59 06:59 14:59 Intake Total 1025 Output Total 10 Balance 1015 Intake: IV 1025 Output: Estimated Blood Loss 10 Other: Weight 64.5 kg General: non toxic, no distress, appears older than stated age Derm: warm, dry Head: atraumatic, normocephalic, symmetric Eyes: EOMI, no lid lag, anicteric sclera, pupils equal round reactive to light ENT: Nose and ears atraumatic, no thrush, no pharyngeal erythema Neck: No thyromegaly, no cervical lymphadenopathy, dressing in place over neck Mouth: no lip lesion, mucus membranes moist Cardiovascular: S1S2 reg, no murmur, positive posterior tibial pulse bilateral, no edema, capillary refill less than 2 seconds Lungs: clear to ascultation bilateral, no ronchi, no rales, no wheeze, no acce ssory muscle use Abdominal: soft, nontender to palpation, no guarding, no appreciable organomegaly, normal bowel sounds Ext: no gross muscle atrophy, muscle strength muscle strength 5 out of 5 in all 4 extremities, no contractures Neuro: CN II-XI grossly intact, light touch intact all 4 extremities, finger to nose within normal limits, Psych: Alert, oriented, appropriate affect Results CBC & Chem 7: 12/13/19 09:02 Labs: Abnormal Lab Results - Last 24 Hours (Table) 12/13/19 12/13/19 Range/Units 09:02 09:16 PT 12.6 H (9.0-12.0) sec INR 1.2 H (<1.2) Chloride 97 L (98-107) mmol/L Carbon Dioxide 33 H (22-30) mmol/L BUN 24 H (7-17) mg/dL Total Bilirubin 1.4 H (0.2-1.3) mg/dL AST 42 H (14-36) U/L Alkaline Phosphatase 211 H (38-126) U/L Chest x-ray: report reviewed Assessment and Plan Assessment: Thyroid nodule - s/p left thyroidectomy - pain control - antiemetics - TSH in 2 week - follow electrolytes A fib - metoprolol - hold eliquis - tele HTN - controlled - hold lisinopril - metoprolol Macular degeneration - assistive care Thank you for allowing us to participate in the care of this pleasant patient. Do not hesitate to contact us with questions. Someone can be reached from the [facility] hospitalist group all hours of the day at [phone] or via perfect serve.
[2019-12-13] MEDS: traMADol 50 MG TAB PO PRN ×2 (17:40→23:14)
[2019-12-13] MEDS ORDERED: METOPROLOL TARTRATE 50 MG TAB PO SCH (19:00)
[2019-12-14] MEDS: HYDROmorphone 0.5 MG/0.5 ML SYRINGE IVP PRN ×2 (00:21→03:30)
[2019-12-14 05:12] LABS: HCT 50.6 % (34.0-46.0); HGB 15.2 gm/dL (11.4-16.0); Hypochromasia Marked; MCH 29.7 pg (25.0-35.0); Mean Platelet Volume 8.7; Platelet Count 203 k/uL (150-450); RBC 5.11 m/uL (3.80-5.40); RDW 13.9 % (11.5-15.5); WBC 15.3 k/uL (3.8-10.6)
[2019-12-14] MEDS ORDERED: ETOMIDATE 2 MG/ML 10 ML VIAL ONE (06:00)
[2019-12-14] MEDS: LACTATED RINGERS 1,000 ML IV SCH (06:23)
[2019-12-14] MEDS ORDERED: DEXTROSE 50% SYRINGE 50 ML IVP STA (08:51)
[2019-12-14] MEDS ORDERED: DEXTROSE 50% SYRINGE 50 ML IVP ONE (08:53)
[2019-12-14 09:00] LABS: Glucose,Whole Blood 33 mg/dL (75-99)
[2019-12-14 09:00] LABS: Glucose,Whole Blood 68 mg/dL (75-99)
[2019-12-14] MEDS ORDERED: ENOXAPARIN 40 MG/0.4 ML SYRINGE SQ SCH (09:00)
[2019-12-14 09:17] LABS: Glucose,Whole Blood 79 mg/dL (75-99)
[2019-12-14 09:21] LABS: African American GFR (CKD) 44 (>60 ml/min/1.73 sqM); Albumin 3.3 g/dL (3.5-5.0); Albumin/Globulin Ratio 1.2; Alkaline Phosphatase 145 U/L (38-126); Anion Gap 22 mmol/L; Blood Urea Nitrogen 26 mg/dL (7-17); Calcium 9.6 mg/dL (8.4-10.2); Carbon Dioxide 17 mmol/L (22-30); Chloride 99 mmol/L (98-107); Globulin 2.8 g/dL; Glucose 62 mg/dL (74-99); Non-African American GFR(CKD) 38 (>60 ml/min/1.73 sqM); Phosphorus 7.5 mg/dL (2.5-4.5); Sodium 138 mmol/L (137-145); Total Protein 6.1 g/dL (6.3-8.2)
[2019-12-14 09:27] LABS: Potassium 5.8 mmol/L (3.5-5.1)
[2019-12-14 09:29] LABS: ALT 307 U/L (4-34); AST 736 U/L (14-36)
[2019-12-14 09:31] LABS: Albumin 3.3 g/dL (3.80-4.90); Albumin/Globulin Ratio 1.5 (1.60-3.17); BUN/Creat Ratio 21.54 Ratio (12.00-20.00); Calcium 9.8 mg/dL (8.7-10.3); Globulin 2.2 g/dL (1.6-3.3); Magnesium 1.8 mg/dL (1.5-2.4); Non-African American GFR(CKD) 37.1 (60.0-200.0); Phosphorus 5.5 mg/dL (2.4-5.1); Potassium 5.3 mmol/L (3.5-5.5); Total Bilirubin 1.4 mg/dL (0.2-1.2); Total Protein 5.5 g/dL (6.2-8.2)
[2019-12-14 09:46] LABS: HCT 49.2 % (34.0-46.0); HGB 14.6 gm/dL (11.4-16.0); Hypochromasia Marked; MCH 29.6 pg (25.0-35.0); MCHC 29.6 g/dL (31.0-37.0); MCV 99.8 fL (80.0-100.0); Macrocytosis Slight; Mean Platelet Volume 9.2; Platelet Count 212 k/uL (150-450); RBC 4.93 m/uL (3.80-5.40); RDW 14.1 % (11.5-15.5); WBC 15.8 k/uL (3.8-10.6)
--- NOTE | 2019-12-14 09:57 | CT ---
EXAMINATION TYPE: CT brain wo con DATE OF EXAM: 12/14/2019 COMPARISON: None INDICATION: Left sided weakness. Post thyroidectomy. DLP: Not available mGycm, Automated exposure control for dose reduction was used. CONTRAST: None CT of the brain is performed utilizing 3 mm thick sections through the posterior fossa and 3 mm thick sections through the remaining calvarium. Study is performed within 24 hours of arrival to the hosp ital. No abnormal hyperdensity is present to suggest an acute intracranial hemorrhage. No mass lesion is evident. No acute infarcts are evident. There are scattered periventricular and deep white matter hypodensitie s, likely on the basis of chronic white matter ischemic change. This includes some suspect change wit hin the brainstem. Ventricles and sulci are prominent for the patient age. Paranasal sinuses and mastoid air cells within the [id number] are clear. IMPRESSIONS: 1. Atrophy with chronic appearing periventricular and deep white matter ischemic type changes
--- NOTE | 2019-12-14 10:12 | CT ---
EXAMINATION TYPE: CT abdomen pelvis wo con DATE OF EXAM: 12/14/2019 COMPARISON: None INDICATION: Abd pain DLP: 499.4 mGycm, Automated exposure control for dose reduction was used. CONTRAST: 0 mL of Isovue 300. Study performed without Oral Contrast TECHNIQUE: Axial images were obtained from above the diaphragm to the pubic rami in the axial plane a t 5 mm thick sections. Reconstructed images are reviewed on the computer in the coronal plane. FINDINGS: Limited CT sections are obtained the lung bases. There is a small to moderate right pleural effusion . Minimal left pleural effusion is present. Coronary artery calcification is present. Vascular calcif ications within the aorta. This may be causing narrowing at the level of the diaphragm. Compressive a telectasis is in the right lower lobe. Some air is within the mediastinum. This appears to be within the right atrium. CT ABDOMEN: There appears to be diffuse subcutaneous edema throughout the study. Liver: Normal Spleen: Normal Pancreas: Atrophic Adrenal glands: The adrenal glands are normal. Gallbladder: Not clearly identified. This may be nondistended. Kidneys: No masses are evident. No hydronephrosis is present. No cysts are present. Right kidney a ppears small. No suspicious obstructing renal stones are evident. A small calcification is in the mid posterior left kidney measuring 0.3 cm appears to be vascular. Some additional vascular calcificatio n is at the inferior pole right kidney. Aorta: Contents vascular calcifications within the aorta. There is an area in the proximal abdominal aorta with a very small lumen. Series 2 image 35. Correlate for flow-limiting stenosis. Additional na rrowing is in the distal descending colon at the level of the diaphragm. Series 2 image 25. No aneury smal dilatation is evident. Vascular calcification extends into the iliac vessels. Inferior vena cava: Normal. CT PELVIS: Small amount of free fluid is within the pelvis. Small left fat-containing inguinal hernia is present. Loops of bowel within the abdomen and pelvis are normal. The study is performed without oral cont rast limiting bowel evaluation. Stomach is distended with fluid. Appendix: Normal as visualized. Urinary bladder: Decompressed with limited evaluation. Genitourinary structures: Uterus appears normal. Adnexal regions are unremarkable. Osseous structures: No suspicious lytic or sclerotic lesions. Degenerative changes are at the bilater al hips. Facet degenerative changes within the lumbar spine IMPRESSIONS: 1. Small to moderate right and small left pleural effusions. Mild compressive atelectasis of the rig ht lower lobe. 2. Extensive vascular calcification within the aorta especially at the level of the diaphragm. This m ay be creating a flow-limiting stenosis. 3. Vascular calcification within the bilateral kidneys. 4. Small amount of free fluid within the pelvis.
[2019-12-14 10:15] LABS: Glucose,Whole Blood 127 mg/dL (75-99)
[2019-12-14 10:18] LABS: Band Neutrophils % 3 %; Lymphocytes # (M) 0.32 k/uL (1.0-4.8); Monocytes # (M) 0.47 k/uL (0-1.0); Neutrophils % (M) 92 %; Nucleated Red Blood Cells 0 /100 WBC (0-0); Total Cells Counted 100
--- NOTE | 2019-12-14 10:44 | CT ---
EXAMINATION TYPE: CODE STROKE: CTA head neck DATE OF EXAM: 12/14/2019 HISTORY: Neuro deficit COMPARISON: None CT DLP: 298.9 mGycm. Automated Exposure Control for Dose Reduction was Utilized. TECHNIQUE: CTA scan of the neck is performed with IV Contrast, patient injected with 65 mL of Isovue 370, axial images are obtained, coronal and sagittal reformatted images are reviewed. Three-D recons tructed images are created on an independent workstation and reviewed. Source images are reviewed. FINDINGS: Carotid/Vascular Structures: There is a three-vessel arch. Tibial arteries are codominant. Common car otid arteries bifurcate into internal and external carotid arteries. Vertebral arteries and internal carotid arteries are patent to the level of the skull base. Atheromatous plaquing is at the bilateral carotid bifurcations. Critical stenosis is at the left external carotid artery. Significant flow-bloom iting stenosis within the internal carotid artery origins is not identified. There is severe narrowin g within the origin of the right internal carotid artery of at least 70%. Severe narrowing of the lef t internal carotid artery origin estimated at 73% is present. Cervical of Amin: Vertebral basilar origin of the right internal carotid artery system appears norm al. Posterior cerebral vasculature is unremarkable. Internal carotid arteries bifurcate normally into A1 and M1 segments. A2 segments are normal. The anterior communicating artery is patent. Left Software [employer] ior communicating artery is patent. Right posterior communicating artery is absent. Other: A 1.7 cm lung mass appears to be present. Series 2 image 9. IMPRESSION: 1. Bilateral internal carotid artery origins have narrowing greater than 70%. 2. Normal [place] of [place]. 3. There is a 1.7 cm nodule adjacent to moderate right pleural effusion within the right upper lung f ield.
[2019-12-14 11:10] LABS: Glucose,Whole Blood 56 mg/dL (75-99)
[2019-12-14 11:27] LABS: Glucose,Whole Blood 103 mg/dL (75-99)
[2019-12-14] MEDS ORDERED: DEXTROSE 5%-0.45% NACL 1,000 ML IV SCH (11:30)
[2019-12-14 11:43] LABS: Glucose,Whole Blood 183 mg/dL (75-99)
[2019-12-14] MEDS ORDERED: APIXABAN 2.5 MG TABLET PO SCH (12:15)
[2019-12-14 12:23] LABS: Glucose,Whole Blood 113 mg/dL (75-99)
[2019-12-14 13:01] LABS: Calcium 9.2 mg/dL (8.4-10.2); Potassium 5.1 mmol/L (3.5-5.1)
[2019-12-14] MEDS: METOPROLOL TARTRATE 25 MG TAB PO SCH ×2 (13:20→15:06)
--- NOTE | 2019-12-14 13:27 | P.PN ---
<Yudi Carrasquillo - Last Filed: 12/14/19 13:13> Subjective Progress Note Date: 12/14/19 CHIEF COMPLAINT: Left thyroid nodule HISTORY OF PRESENT ILLNESS: Status post left thyroidectomy. Patient denies any difficulty with swallowing. Her voice is normal. She denies any pain in her neck. This morning A TEAM was called for a code stroke. Patient was having left arm weakness. She also had episodes of hypoglycemia. She was given 1 amp of dextroseBut continued to have persistent left arm weakness. Patient had computed tomography scan of the brain completed showing atrophy with chronic appearing periventricular and deep white matter ischemic type changes. Computed tomography scan of the abdomen shows small to moderate right and small left pleural effusion. Mild compressive atelectasis of the right lower lobe. Extensive vascular calcifications within the aorta especially at the level of the diaphragm. This may be creating a flow limiting stenosis. Vascular calcification within the bilateral kidneys. Small amount of free fluid within the pelvis. Small amount of air appears to be within the right atrium. CTA of the head and neck bilateral internal carotid artery origins have narrowing greater than 70%. Normal [place] of [place]. There is a 1.7 cm nodule adjacent to moderate right pleural effusion within the right upper lung field. WBC 15.8, AST 736, ALT 307, alk phos 145, total bili 2.0 PHYSICAL EXAM: VITAL SIGNS: Reviewed. GENERAL: Well-developed in no acute distress. HEENT: No sclera icterus. Extraocular movements grossly intact. Moist buccal mucosa. Head is atraumatic, normocephalic. Incision site of the neck clean dry and intact. Minimal swelling noted. ABDOMEN: Soft. Nondistended. Diffuse abdominal tenderness NEUROLOGIC: Alert and oriented. Cranial nerves II through XII grossly intact.Patient is able to move all 4 extremities. 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 No evidence of facial droop. No slurred speech. ASSESSMENT: 1. Left thyroid nodule status post left thyroidectomy. Postop day #1 2. Left arm weakness Stroke workup in progress 3. Hypoglycemia 4. abdominal pain With CAT scan findings showing Extensive vascular calcifications within the aorta especially at the level of the diaphragm. This may be creating a flow limiting stenosis. 5. history of atrial fibrillation PLAN: -Consult neurology -Appreciate medicine recommendations -Continue hypoglycemia treatment per medicine -[facility] has been reviewed by physician. Signing provider agrees with the documented findings, assessment, and plan of care. Objective - Vital Signs Vital signs: Vital Signs Temp 96.7 F L 12/13/19 21:00 Pulse 78 12/14/19 07:48 Resp 19 12/14/19 05:00 BP 107/69 12/14/19 07:48 Pulse Ox 94 L 12/14/19 05:00 Intake & Output 12/13/19 12/14/19 12/14/19 18:59 06:59 18:59 Intake Total 1025 975 Output Total 10 Balance 1015 975 Weight 64.5 kg Intake: IV 1025 Intake, IV Titration 975 Amount Lactated Ringers 1,000 ml 975 @ 125 mls/hr IV .Q8H ONE Rx#:[id number] Output: Estimated Blood Loss 10 Other: Voiding Method Toilet Toilet # Voids 1 - Labs CBC & Chem 7: 12/14/19 08:53 12/14/19 12:27 Labs: Abnormal Lab Results - Last 24 Hours (Table) 12/14/19 12/14/19 12/14/19 Range/Units 04:43 04:43 07:36 WBC 15.3 H (3.8-10.6) k/uL Hct 50.6 H (34.0-46.0) % MCHC 30.0 L (31.0-37.0) g/dL Neutrophils # (Manual) (1.3-7.7) k/uL Lymphocytes # (Manual) (1.0-4.8) k/uL Sodium (137-145) mmol/L Potassium (3.5-5.1) mmol/L Chloride 95 L (96-109) mmol/L Carbon Dioxide 21.0 L (21.6-31.8) mmol/L Anion Gap 23.00 H (4.00-12.00) mmol/L BUN 28.0 H (9.0-27.0) mg/dL Creatinine (0.52-1.04) mg/dL Est GFR (CKD-EPI)AfAm 43.0 L (60.0-200.0) Est GFR (CKD-EPI)NonAf 37.1 L (60.0-200.0) BUN/Creatinine Ratio 21.54 H (12.00-20.00) Ratio Glucose (74-99) mg/dL POC Glucose (mg/dL) 68 L (75-99) mg/dL Phosphorus 5.5 H (2.4-5.1) mg/dL Total Bilirubin 1.4 H (0.2-1.2) mg/dL AST 89 H (13-35) U/L ALT (4-34) U/L Alkaline Phosphatase 182 H (41-126) U/L Total Protein 5.5 L (6.2-8.2) g/dL Albumin 3.30 L (3.80-4.90) g/dL Albumin/Globulin Ratio 1.50 L (1.60-3.17) g/dL 12/14/19 12/14/19 12/14/19 Range/Units 08:50 08:53 08:53 WBC 15.8 H (3.8-10.6) k/uL Hct 49.2 H (34.0-46.0) % MCHC 29.6 L (31.0-37.0) g/dL Neutrophils # (Manual) 15.00 H (1.3-7.7) k/uL Lymphocytes # (Manual) 0.32 L (1.0-4.8) k/uL Sodium (137-145) mmol/L Potassium 5.8 H (3.5-5.1) mmol/L Chloride (96-109) mmol/L Carbon Dioxide 17 L (21.6-31.8) mmol/L Anion Gap (4.00-12.00) mmol/L BUN 26 H (9.0-27.0) mg/dL Creatinine 1.28 H (0.52-1.04) mg/dL Est GFR (CKD-EPI)AfAm (60.0-200.0) Est GFR (CKD-EPI)NonAf (60.0-200.0) BUN/Creatinine Ratio (12.00-20.00) Ratio Glucose 62 L (74-99) mg/dL POC Glucose (mg/dL) 33 L (75-99) mg/dL Phosphorus 7.5 H (2.4-5.1) mg/dL Total Bilirubin 2.0 H (0.2-1.2) mg/dL AST 736 H (13-35) U/L ALT 307 H (4-34) U/L Alkaline Phosphatase 145 H (41-126) U/L Total Protein 6.1 L (6.2-8.2) g/dL Albumin 3.3 L (3.80-4.90) g/dL Albumin/Globulin Ratio (1.60-3.17) g/dL 12/14/19 12/14/19 12/14/19 Range/Units 10: 11:08 11:24 WBC (3.8-10.6) k/uL Hct (34.0-46.0) % MCHC (31.0-37.0) g/dL Neutrophils # (Manual) (1.3-7.7) k/uL Lymphocytes # (Manual) (1.0-4.8) k/uL Sodium (137-145) mmol/L Potassium (3.5-5.1) mmol/L Chloride (96-109) mmol/L Carbon Dioxide (21.6-31.8) mmol/L Anion Gap (4.00-12.00) mmol/L BUN (9.0-27.0) mg/dL Creatinine (0.52-1.04) mg/dL Est GFR (CKD-EPI)AfAm (60.0-200.0) Est GFR (CKD-EPI)NonAf (60.0-200.0) BUN/Creatinine Ratio (12.00-20.00) Ratio Glucose (74-99) mg/dL POC Glucose (mg/dL) 127 H 56 L 103 H (75-99) mg/dL Phosphorus (2.4-5.1) mg/dL Total Bilirubin (0.2-1.2) mg/dL AST (13-35) U/L ALT (4-34) U/L Alkaline Phosphatase (41-126) U/L Total Protein (6.2-8.2) g/dL Albumin (3.80-4.90) g/dL Albumin/Globulin Ratio (1.60-3.17) g/dL 12/14/19 12/14/19 12/14/19 Range/Units 11:40 12:19 12:27 WBC (3.8-10.6) k/uL Hct (34.0-46.0) % MCHC (31.0-37.0) g/dL Neutrophils # (Manual) (1.3-7.7) k/uL Lymphocytes # (Manual) (1.0-4.8) k/uL Sodium 134 L (137-145) mmol/L Potassium (3.5-5.1) mmol/L Chloride 97 L (96-109) mmol/L Carbon Dioxide 19 L (21.6-31.8) mmol/L Anion Gap (4.00-12.00) mmol/L BUN 27 H (9.0-27.0) mg/dL Creatinine 1.36 H (0.52-1.04) mg/dL Est GFR (CKD-EPI)AfAm (60.0-200.0) Est GFR (CKD-EPI)NonAf (60.0-200.0) BUN/Creatinine Ratio (12.00-20.00) Ratio Glucose 174 H (74-99) mg/dL POC Glucose (mg/dL) 183 H 113 H (75-99) mg/dL Phosphorus (2.4-5.1) mg/dL Total Bilirubin (0.2-1.2) mg/dL AST (13-35) U/L ALT (4-34) U/L Alkaline Phosphatase (41-126) U/L Total Protein (6.2-8.2) g/dL Albumin (3.80-4.90) g/dL Albumin/Globulin Ratio (1.60-3.17) g/dL <Zach Miller - Last Filed: 12/15/19 09:52> Objective - Vital Signs Vital signs: Vital Signs Temp 98.0 F 12/15/19 08:00 Pulse 108 H 12/15/19 08:45 Resp 24 12/15/19 08:45 BP 99/58 12/15/19 07:00 Pulse Ox 96 12/15/19 08:45 Intake & Output 12/14/19 12/15/19 12/15/19 18:59 06:59 18:59 Intake Total 1307.401 425.659 364.754 Output Total 1060 324 16 Balance 247.401 101.659 348.754 Weight 70 kg Intake: IV 6 36 231 0.9 flush 6 36 3 Dextrose 5% in Water 1, 150 000 ml @ 75 mls/hr IV . [id number] TONY with Sodium Bicarb (1 Meq/ml) 150 ml Rx#:[id number] Dextrose 5%-0.45% NaCl 1, 75 000 ml @ 75 mls/hr IV . [id number] TONY Rx#:[id number] Pressure Bags 3 Intake, IV Titration 1301.401 389.659 133.754 Amount Dextrose 5% in Water 1, 150 150 000 ml @ 75 mls/hr IV . [id number] TONY with Sodium Bicarb (1 Meq/ml) 150 ml Rx#:[id number] Dextrose 5%-0.45% NaCl 1, 150 75 000 ml @ 75 mls/hr IV . [id number] TONY Rx#:[id number] Diltiazem 125 mg In 2.5 Sodium Chloride 0.9% 100 ml @ Per Protocol IV .Q0M TONY Rx#:[id number] Lactated Ringers 1,000 ml 1000 @ 999 mls/hr IV .Q1H1M ONE Rx#:[id number] Meropenem 1 gm In Sodium 100 Chloride 0.9% 100 ml @ 33 .333 mls/hr IVPB Q12HR TONY Rx#:[id number] Norepinephrine 32 mg In 1.401 17.241 31.254 Sodium Chloride 0.9% 218 ml @ 0.05 MCG/KG/MIN 1. 512 mls/hr IV .Q24H TONY Rx#:[id number] Sodium Chloride 0.9% 150 4.59 ml @ 0.03 UNITS/MIN 4.59 mls/hr IV .Q24H TONY with Vasopressin 60 unit Rx#: [id number] propofoL 1,000 mg In 42.828 100 Empty Bag 1 bag @ Titrate IV .Q0M TONY Rx#: [id number] Output: Gastric Drainage 1050 200 Urine 10 124 16 Other: Voiding Method Indwelling Catheter Indwelling Catheter # Voids 0 ABP, PAP, CO, CI - Last Documented Arterial Blood Pressure 90/44 - Labs CBC & Chem 7: 12/15/19 04:45 12/15/19 04:45 Labs: Abnormal Lab Results - Last 24 Hours (Table) 12/14/19 12/14/19 12/14/19 Range/Units 08:53 10: 11:08 WBC (3.8-10.6) k/uL MCV (80.0-100.0) fL MCHC (31.0-37.0) g/dL Plt Count (150-450) k/uL Neutrophils # (Manual) 15.00 H (1.3-7.7) k/uL Lymphocytes # (Manual) 0.32 L (1.0-4.8) k/uL PT (9.0-12.0) sec INR (<1.2) APTT (22.0-30.0) sec ABG pH (7.35-7.45) ABG pCO2 (35-45) mmHg ABG pO2 (83-108) mmHg ABG HCO3 (21-25) mmol/L ABG Total CO2 (19-24) mmol/L ABG O2 Saturation (94-97) % Sodium (137-145) mmol/L Chloride (98-107) mmol/L Carbon Dioxide (22-30) mmol/L BUN (7-17) mg/dL Creatinine (0.52-1.04) mg/dL Glucose (74-99) mg/dL POC Glucose (mg/dL) 127 H 56 L (75-99) mg/dL Hemoglobin A1c (4.0-6.0) % Plasma Lactic Acid Myles (0.7-2.0) mmol/L Calcium (8.4-10.2) mg/dL Phosphorus (2.5-4.5) mg/dL Total Bilirubin (0.2-1.3) mg/dL AST (14-36) U/L ALT (4-34) U/L Alkaline Phosphatase (38-126) U/L Total Protein (6.3-8.2) g/dL Albumin (3.5-5.0) g/dL Triglycerides (<150) mg/dL HDL Cholesterol (40-60) mg/dL TSH (0.465-4.680) mIU/L Free T4 (0.78-2.19) ng/dL ACTH (0.00-45.99) pg/mL 12/14/19 12/14/19 12/14/19 Range/Units 11:24 11:40 12:19 WBC (3.8-10.6) k/uL MCV (80.0-100.0) fL MCHC (31.0-37.0) g/dL Plt Count (150-450) k/uL Neutrophils # (Manual) (1.3-7.7) k/uL Lymphocytes # (Manual) (1.0-4.8) k/uL PT (9.0-12.0) sec INR (<1.2) APTT (22.0-30.0) sec ABG pH (7.35-7.45) ABG pCO2 (35-45) mmHg ABG pO2 (83-108) mmHg ABG HCO3 (21-25) mmol/L ABG Total CO2 (19-24) mmol/L ABG O2 Saturation (94-97) % Sodium (137-145) mmol/L Chloride (98-107) mmol/L Carbon Dioxide (22-30) mmol/L BUN (7-17) mg/dL Creatinine (0.52-1.04) mg/dL Glucose (74-99) mg/dL POC Glucose (mg/dL) 103 H 183 H 113 H (75-99) mg/dL Hemoglobin A1c (4.0-6.0) % Plasma Lactic Acid Myles (0.7-2.0) mmol/L Calcium (8.4-10.2) mg/dL Phosphorus (2.5-4.5) mg/dL Total Bilirubin (0.2-1.3) mg/dL AST (14-36) U/L ALT (4-34) U/L Alkaline Phosphatase (38-126) U/L Total Protein (6.3-8.2) g/dL Albumin (3.5-5.0) g/dL Triglycerides (<150) mg/dL HDL Cholesterol (40-60) mg/dL TSH (0.465-4.680) mIU/L Free T4 (0.78-2.19) ng/dL ACTH (0.00-45.99) pg/mL 12/14/19 12/14/19 12/14/19 Range/Units 12:27 14:30 15:19 WBC (3.8-10.6) k/uL MCV (80.0-100.0) fL MCHC (31.0-37.0) g/dL Plt Count (150-450) k/uL Neutrophils # (Manual) (1.3-7.7) k/uL Lymphocytes # (Manual) (1.0-4.8) k/uL PT (9.0-12.0) sec INR (<1.2) APTT (22.0-30.0) sec ABG pH (7.35-7.45) ABG pCO2 (35-45) mmHg ABG pO2 (83-108) mmHg ABG HCO3 (21-25) mmol/L ABG Total CO2 (19-24) mmol/L ABG O2 Saturation (94-97) % Sodium 134 L (137-145) mmol/L Chloride 97 L (98-107) mmol/L Carbon Dioxide 19 L (22-30) mmol/L BUN 27 H (7-17) mg/dL Creatinine 1.36 H (0.52-1.04) mg/dL Glucose 174 H (74-99) mg/dL POC Glucose (mg/dL) 125 H (75-99) mg/dL Hemoglobin A1c 6.1 H (4.0-6.0) % Plasma Lactic Acid Myles (0.7-2.0) mmol/L Calcium (8.4-10.2) mg/dL Phosphorus (2.5-4.5) mg/dL Total Bilirubin (0.2-1.3) mg/dL AST (14-36) U/L ALT (4-34) U/L Alkaline Phosphatase (38-126) U/L Total Protein (6.3-8.2) g/dL Albumin (3.5-5.0) g/dL Triglycerides (<150) mg/dL HDL Cholesterol (40-60) mg/dL TSH (0.465-4.680) mIU/L Free T4 (0.78-2.19) ng/dL ACTH (0.00-45.99) pg/mL 12/14/19 12/14/19 12/14/19 Range/Units 15:19 15:35 16:46 WBC (3.8-10.6) k/uL MCV (80.0-100.0) fL MCHC (31.0-37.0) g/dL Plt Count (150-450) k/uL Neutrophils # (Manual) (1.3-7.7) k/uL Lymphocytes # (Manual) (1.0-4.8) k/uL PT 28.9 H (9.0-12.0) sec INR 3.0 H (<1.2) APTT 35.4 H (22.0-30.0) sec ABG pH (7.35-7.45) ABG pCO2 (35-45) mmHg ABG pO2 (83-108) mmHg ABG HCO3 (21-25) mmol/L ABG Total CO2 (19-24) mmol/L ABG O2 Saturation (94-97) % Sodium (137-145) mmol/L Chloride (98-107) mmol/L Carbon Dioxide (22-30) mmol/L BUN (7-17) mg/dL Creatinine (0.52-1.04) mg/dL Glucose (74-99) mg/dL POC Glucose (mg/dL) 108 H (75-99) mg/dL Hemoglobin A1c (4.0-6.0) % Plasma Lactic Acid Myles (0.7-2.0) mmol/L Calcium (8.4-10.2) mg/dL Phosphorus (2.5-4.5) mg/dL Total Bilirubin (0.2-1.3) mg/dL AST (14-36) U/L ALT (4-34) U/L Alkaline Phosphatase (38-126) U/L Total Protein (6.3-8.2) g/dL Albumin (3.5-5.0) g/dL Triglycerides (<150) mg/dL HDL Cholesterol (40-60) mg/dL TSH (0.465-4.680) mIU/L Free T4 (0.78-2.19) ng/dL ACTH 267.00 H (0.00-45.99) pg/mL 12/14/19 12/14/19 12/14/19 Range/Units 16:46 16:46 16:46 WBC 23.0 H (3.8-10.6) k/uL MCV 101.7 H (80.0-100.0) fL MCHC 29.3 L (31.0-37.0) g/dL Plt Count (150-450) k/uL Neutrophils # (Manual) (1.3-7.7) k/uL Lymphocytes # (Manual) (1.0-4.8) k/uL PT (9.0-12.0) sec INR (<1.2) APTT (22.0-30.0) sec ABG pH (7.35-7.45) ABG pCO2 (35-45) mmHg ABG pO2 (83-108) mmHg ABG HCO3 (21-25) mmol/L ABG Total CO2 (19-24) mmol/L ABG O2 Saturation (94-97) % Sodium 134 L (137-145) mmol/L Chloride (98-107) mmol/L Carbon Dioxide 18 L (22-30) mmol/L BUN 25 H (7-17) mg/dL Creatinine 1.44 H (0.52-1.04) mg/dL Glucose 119 H (74-99) mg/dL POC Glucose (mg/dL) (75-99) mg/dL Hemoglobin A1c (4.0-6.0) % Plasma Lactic Acid Myles 13.2 H* (0.7-2.0) mmol/L Calcium (8.4-10.2) mg/dL Phosphorus (2.5-4.5) mg/dL Total Bilirubin (0.2-1.3) mg/dL AST (14-36) U/L ALT (4-34) U/L Alkaline Phosphatase (38-126) U/L Total Protein (6.3-8.2) g/dL Albumin (3.5-5.0) g/dL Triglycerides (<150) mg/dL HDL Cholesterol (40-60) mg/dL TSH (0.465-4.680) mIU/L Free T4 (0.78-2.19) ng/dL ACTH (0.00-45.99) pg/mL 12/14/19 12/14/19 12/14/19 Range/Units 16:58 17:09 18:44 WBC (3.8-10.6) k/uL MCV (80.0-100.0) fL MCHC (31.0-37.0) g/dL Plt Count (150-450) k/uL Neutrophils # (Manual) (1.3-7.7) k/uL Lymphocytes # (Manual) (1.0-4.8) k/uL PT (9.0-12.0) sec INR (<1.2) APTT (22.0-30.0) sec ABG pH 7.05 L* 7.28 L (7.35-7.45) ABG pCO2 54 H 49 H (35-45) mmHg ABG pO2 291 H 72 L (83-108) mmHg ABG HCO3 15 L (21-25) mmol/L ABG Total CO2 17 L 25 H (19-24) mmol/L ABG O2 Saturation 100.0 H 93.9 L (94-97) % Sodium (137-145) mmol/L Chloride (98-107) mmol/L Carbon Dioxide (22-30) mmol/L BUN (7-17) mg/dL Creatinine (0.52-1.04) mg/dL Glucose (74-99) mg/dL POC Glucose (mg/dL) 115 H (75-99) mg/dL Hemoglobin A1c (4.0-6.0) % Plasma Lactic Acid Myles (0.7-2.0) mmol/L Calcium (8.4-10.2) mg/dL Phosphorus (2.5-4.5) mg/dL Total Bilirubin (0.2-1.3) mg/dL AST (14-36) U/L ALT (4-34) U/L Alkaline Phosphatase (38-126) U/L Total Protein (6.3-8.2) g/dL Albumin (3.5-5.0) g/dL Triglycerides (<150) mg/dL HDL Cholesterol (40-60) mg/dL TSH (0.465-4.680) mIU/L Free T4 (0.78-2.19) ng/dL ACTH (0.00-45.99) pg/mL 12/14/19 12/14/19 12/14/19 Range/Units 20:43 23:00 23:00 WBC 16.2 H (3.8-10.6) k/uL MCV (80.0-100.0) fL MCHC (31.0-37.0) g/dL Plt Count (150-450) k/uL Neutrophils # (Manual) (1.3-7.7) k/uL Lymphocytes # (Manual) (1.0-4.8) k/uL PT 33.5 H (9.0-12.0) sec INR 3.4 H (<1.2) APTT (22.0-30.0) sec ABG pH (7.35-7.45) ABG pCO2 (35-45) mmHg ABG pO2 (83-108) mmHg ABG HCO3 (21-25) mmol/L ABG Total CO2 (19-24) mmol/L ABG O2 Saturation (94-97) % Sodium (137-145) mmol/L Chloride (98-107) mmol/L Carbon Dioxide (22-30) mmol/L BUN (7-17) mg/dL Creatinine (0.52-1.04) mg/dL Glucose (74-99) mg/dL POC Glucose (mg/dL) (75-99) mg/dL Hemoglobin A1c (4.0-6.0) % Plasma Lactic Acid Myles 16.5 H* (0.7-2.0) mmol/L Calcium (8.4-10.2) mg/dL Phosphorus (2.5-4.5) mg/dL Total Bilirubin (0.2-1.3) mg/dL AST (14-36) U/L ALT (4-34) U/L Alkaline Phosphatase (38-126) U/L Total Protein (6.3-8.2) g/dL Albumin (3.5-5.0) g/dL Triglycerides (<150) mg/dL HDL Cholesterol (40-60) mg/dL TSH (0.465-4.680) mIU/L Free T4 (0.78-2.19) ng/dL ACTH (0.00-45.99) pg/mL 12/14/19 12/15/19 12/15/19 Range/Units 23:00 00:40 02:40 WBC (3.8-10.6) k/uL MCV (80.0-100.0) fL MCHC (31.0-37.0) g/dL Plt Count (150-450) k/uL Neutrophils # (Manual) (1.3-7.7) k/uL Lymphocytes # (Manual) (1.0-4.8) k/uL PT (9.0-12.0) sec INR (<1.2) APTT (22.0-30.0) sec ABG pH (7.35-7.45) ABG pCO2 (35-45) mmHg ABG pO2 (83-108) mmHg ABG HCO3 (21-25) mmol/L ABG Total CO2 (19-24) mmol/L ABG O2 Saturation (94-97) % Sodium (137-145) mmol/L Chloride 95 L (98-107) mmol/L Carbon Dioxide (22-30) mmol/L BUN 25 H (7-17) mg/dL Creatinine 1.45 H (0.52-1.04) mg/dL Glucose 154 H (74-99) mg/dL POC Glucose (mg/dL) (75-99) mg/dL Hemoglobin A1c (4.0-6.0) % Plasma Lactic Acid Myles 15.9 H* 14.9 H* (0.7-2.0) mmol/L Calcium 8.0 L (8.4-10.2) mg/dL Phosphorus (2.5-4.5) mg/dL Total Bilirubin 2.4 H (0.2-1.3) mg/dL AST 5581 H (14-36) U/L ALT 1909 H (4-34) U/L Alkaline Phosphatase (38-126) U/L Total Protein 4.0 L (6.3-8.2) g/dL Albumin 2.1 L (3.5-5.0) g/dL Triglycerides (<150) mg/dL HDL Cholesterol (40-60) mg/dL TSH 0.055 L (0.465-4.680) mIU/L Free T4 4.87 H (0.78-2.19) ng/dL ACTH (0.00-45.99) pg/mL 12/15/19 12/15/19 12/15/19 Range/Units 04:45 04:45 04:45 WBC 15.4 H (3.8-10.6) k/uL MCV (80.0-100.0) fL MCHC (31.0-37.0) g/dL Plt Count 146 L (150-450) k/uL Neutrophils # (Manual) (1.3-7.7) k/uL Lymphocytes # (Manual) (1.0-4.8) k/uL PT 35.1 H (9.0-12.0) sec INR 3.6 H (<1.2) APTT (22.0-30.0) sec ABG pH (7.35-7.45) ABG pCO2 (35-45) mmHg ABG pO2 (83-108) mmHg ABG HCO3 (21-25) mmol/L ABG Total CO2 (19-24) mmol/L ABG O2 Saturation (94-97) % Sodium 135 L (137-145) mmol/L Chloride 93 L (98-107) mmol/L Carbon Dioxide (22-30) mmol/L BUN 27 H (7-17) mg/dL Creatinine 1.50 H (0.52-1.04) mg/dL Glucose 176 H (74-99) mg/dL POC Glucose (mg/dL) (75-99) mg/dL Hemoglobin A1c (4.0-6.0) % Plasma Lactic Acid Myles (0.7-2.0) mmol/L Calcium 7.9 L (8.4-10.2) mg/dL Phosphorus 5.3 H (2.5-4.5) mg/dL Total Bilirubin 2.9 H (0.2-1.3) mg/dL AST 8644 H (14-36) U/L ALT 3023 H (4-34) U/L Alkaline Phosphatase 138 H (38-126) U/L Total Protein 4.3 L (6.3-8.2) g/dL Albumin 2.2 L (3.5-5.0) g/dL Triglycerides 238 H (<150) mg/dL HDL Cholesterol 19 L (40-60) mg/dL TSH (0.465-4.680) mIU/L Free T4 (0.78-2.19) ng/dL ACTH (0.00-45.99) pg/mL 12/15/19 12/15/19 Range/Units 04:45 07:42 WBC (3.8-10.6) k/uL MCV (80.0-100.0) fL MCHC (31.0-37.0) g/dL Plt Count (150-450) k/uL Neutrophils # (Manual) (1.3-7.7) k/uL Lymphocytes # (Manual) (1.0-4.8) k/uL PT (9.0-12.0) sec INR (<1.2) APTT (22.0-30.0) sec ABG pH 7.46 H (7.35-7.45) ABG pCO2 (35-45) mmHg ABG pO2 (83-108) mmHg ABG HCO3 27 H (21-25) mmol/L ABG Total CO2 28 H (19-24) mmol/L ABG O2 Saturation 98.3 H (94-97) % Sodium (137-145) mmol/L Chloride (98-107) mmol/L Carbon Dioxide (22-30) mmol/L BUN (7-17) mg/dL Creatinine (0.52-1.04) mg/dL Glucose (74-99) mg/dL POC Glucose (mg/dL) (75-99) mg/dL Hemoglobin A1c (4.0-6.0) % Plasma Lactic Acid Myles 13.8 H* (0.7-2.0) mmol/L Calcium (8.4-10.2) mg/dL Phosphorus (2.5-4.5) mg/dL Total Bilirubin (0.2-1.3) mg/dL AST (14-36) U/L ALT (4-34) U/L Alkaline Phosphatase (38-126) U/L Total Protein (6.3-8.2) g/dL Albumin (3.5-5.0) g/dL Triglycerides (<150) mg/dL HDL Cholesterol (40-60) mg/dL TSH (0.465-4.680) mIU/L Free T4 (0.78-2.19) ng/dL ACTH (0.00-45.99) pg/mL Assessment and Plan Plan: The patient was reexamined several times today. She was initially seen at 9:30, then 12:30 and then 1730.. Patient had developed some abdominal pain. Her CAT scan was reviewed. Patient has a critical area stenosis of the aorta. This may be contributing to lower body ischemia. The patient was transferred the ICU and intubated. She is currently hypotensive receiving fluid boluses. Her pH is 7.05. Patient is being resuscitated. Her condition is guarded. Her family was updated on her condition. I believe that she has ischemic bowel due to ischemia due to her aortic critical stenosis..
[2019-12-14 14:32] LABS: Glucose,Whole Blood 125 mg/dL (75-99)
--- NOTE | 2019-12-14 14:33 | P.CNNES ---
History of Present Illness Consult date: 12/14/19 Requesting physician: Kourtney Boudreaux Reason for Consult: CVA, atrial fibrillation History of Present Illness: Patient is a 84-year-old female, who underwent left thyroidectomy yesterday, states his last night she had vomiting. She went to sleep. This morning when she woke up, felt numbness of the left arm, from elbow down. Stroke code was activated. patient's blood sugar was noted to be 33. Patient was given D50, her blood glucose improved and her symptoms started improving. Patient was not a candidate for TPA she was in post operative state. Patient denies any slurred speech, facial droop or a new problem with the vision. She does have macular degeneration. Patient underwent CT head showed atrophy and chronic appearing periventricular and deep white matter ischemic type changes.CT of abdomen and pelvis showed small to moderate right and small left pleural effusion. Mild compressive atelectasis of the right lower lobe. Extensive vascular calcification within the aorta specifically at the level of the diaphragm. Vascular calcification within the bilateral kidneys. Small amount of free fluid within the pelvis.CTA of head and neck showed bilateral internal carotid artery origins have narrowing greater than 70%. Normal [place] of [place].patient had a 2-D echo on 04/27/2019 showed sinus rhythm, EF is 55-60%. Left atrium is severely dilated. Patient's blood tests shows WBC 15.8 hemoglobin 14.6, platelets 212. Sodium is normal potassium 5.8, BUN 26 creatinine 1.28. Hepatic panel with AST 736, ALT 307. Her TSH is low 0.050 and free T4 is normal 1.20, and also normal free T4 on 10/14/2019. patient's telemetry monitoring showing atrial fibrillation. On examination it was noted that she is weak in the left arm and in the right leg. Patient later disclosed that she does have chronic weakness of the left arm for last 1 year of unclear cause. She also has weakness of the right leg from the past. Her left arm numbness has a much improved. Patient's daughter was also present, who apparently does not know details about her mother's health history, and relies on patient's information. patient's daughter believes that patient has received tramadol last night, which may have produced some side effects. patient also has atrial fibrillation, and eliquis was held yesterday due to upcoming surgery. Patient has not received Eliquis today either and is on Lovenox 40 mg DVT prophylactic dose. Review of Systems as above in detail. All other review of systems unremarkable. Denies any chest pain shortness of breath wheezing or cough. She does have macular degeneration. Denies any tinnitus, denies any diplopia, complains of generalized weakness, fatigue from surgery. Past Medical History Past Medical History: Atrial Fibrillation, Eye Disorder, Hypertension, Thyroid Disorder, Vascular Disorder Additional Past Medical History / Comment(s): macular degeneration, PVCs, thyroid nodule, edema bipin legs History of Any Multi-Drug Resistant Organisms: None Reported Past Surgical History: No Surgical Hx Reported Additional Past Surgical History / Comment(s): bipin cataracts, thyroid biopsy Past Anesthesia/Blood Transfusion Reactions: Family History of Problems w/ Anesthesia Additional Past Anesthesia/Blood Transfusion Reaction / Comment(s): father from postop PE Smoking Status: Former smoker Past Alcohol Use History: Daily - Past Family History Father Family Medical History: Pulmonary Embolus Medications and Allergies Home Medications Medication Instructions Recorded Confirmed Type Apixaban [Eliquis] 2.5 mg PO BID 09/07/19 12/08/19 History Cholecalciferol [Vitamin D3 (25 1,000 unit PO DAILY 09/07/19 12/08/19 History Mcg = 1000 Iu)] Vit C/E/Zn/Coppr/Lutein/Zeaxan 1 each PO BID 09/07/19 12/08/19 History [Preservision Areds 2 Softgel] lisinopriL [Zestril] 20 mg PO HS 09/07/19 12/08/19 History Calcium Carbonate [Tums] 500 mg PO DAILY 11/22/19 12/08/19 History Furosemide [Lasix] 40 mg PO DAILY 11/22/19 12/08/19 History Potassium Chloride 16 meq PO DAILY 11/22/19 12/08/19 History Metoprolol Tartrate [Lopressor] 50 mg PO 1900 12/08/19 12/08/19 History Metoprolol Tartrate [Lopressor] 75 mg PO 0800,1330 12/08/19 12/08/19 History Allergies Allergy/AdvReac Type Severity Reaction Status Date / Time Penicillins Allergy tongue Verified 12/13/19 08:57 itching Physical Examination - Vital Signs Vital Signs: Vital Signs Temp Pulse Pulse Resp BP Pulse Ox 12/14/19 07:48 78 107/69 12/14/19 05:00 63 19 94 L 12/13/19 21:00 96.7 F L 107 H 18 119/79 92 L 12/13/19 14:35 83 104/59 12/13/19 14:05 104 H 103/73 12/13/19 13:35 75 104/68 12/13/19 13:05 96.5 F L 63 17 104/68 95 12/13/19 12:30 106 H 16 95/71 92 L 12/13/19 12:15 96 16 129/65 95 12/13/19 12:01 107 H 18 119/75 100 12/13/19 11:46 97.8 F 95 20 113/59 97 Intake and Output 12/13/19 12/14/19 12/14/19 22:59 06:59 14:59 Intake Total 375 600 Balance 375 600 Intake: Intake, IV Titration 375 600 Amount Lactated Ringers 1,000 ml 375 600 @ 125 mls/hr IV .Q8H ONE Rx#:[id number] Other: Voiding Method Toilet Toilet # Voids 1 1 On examination patient is an elderly female, in no acute distress. Patient is alert and awake fully oriented although she is slightly slow mentation. Her speech and language functions are normal with no aphasia or dysarthria. On cranial nerve examination pupils are round and reactive to light, visual walker are full on confrontation with no neglect. visual acuity not checked. Patient states that she has very poor vision in the left eye. Extraocular muscles are intact. Face symmetric, tongue protrudes to the midline. Palatal elevation and sensation normal. Hearing and shoulder shrug normal. Facial sensation normal. On muscle strength testing patient has left pronator drift. The strength is normal in the right arm distally and proximally. In the left upper limb, her deltoid is 5-4+, biceps 5-, triceps 5, vehicle glass technician 5-, interossei 5-4+. In the lower limbs, (R/L) knee extension 5/5, ankle dorsiflexion 4/5, toe extension 4-/5. Reflexes are 2+ and plantars are possible up on the right, flat on the left. Sensory touch is equal with no neglect. Patient is ataxic for [id number] on the left. Tone and bulk of muscles normal, gait deferred. No obvious bruit, S1 and S2 audible, abdomen is soft. Patient has moderate peripheral edema. Results - Laboratory Findings CBC and BMP: 12/14/19 08:53 12/14/19 12:27 Abnormal Lab Findings: Abnormal Labs 12/13/19 12/13/19 12/14/19 09:02 09:16 04:43 WBC 15.3 H Hct 50.6 H MCHC 30.0 L Neutrophils # (Manual) Lymphocytes # (Manual) PT 12.6 H INR 1.2 H Potassium Chloride 97 L Carbon Dioxide 33 H Anion Gap BUN 24 H Creatinine Est GFR (CKD-EPI)AfAm Est GFR (CKD-EPI)NonAf BUN/Creatinine Ratio Glucose POC Glucose (mg/dL) Phosphorus Total Bilirubin 1.4 H AST 42 H ALT Alkaline Phosphatase 211 H Total Protein Albumin Albumin/Globulin Ratio 12/14/19 12/14/19 12/14/19 04:43 07:36 08:50 WBC Hct MCHC Neutrophils # (Manual) Lymphocytes # (Manual) PT INR Potassium Chloride 95 L Carbon Dioxide 21.0 L Anion Gap 23.00 H BUN 28.0 H Creatinine Est GFR (CKD-EPI)AfAm 43.0 L Est GFR (CKD-EPI)NonAf 37.1 L BUN/Creatinine Ratio 21.54 H Glucose POC Glucose (mg/dL) 68 L 33 L Phosphorus 5.5 H Total Bilirubin 1.4 H AST 89 H ALT Alkaline Phosphatase 182 H Total Protein 5.5 L Albumin 3.30 L Albumin/Globulin Ratio 1.50 L 12/14/19 12/14/19 12/14/19 08:53 08:53 10:13 WBC 15.8 H Hct 49.2 H MCHC 29.6 L Neutrophils # (Manual) 15.00 H Lymphocytes # (Manual) 0.32 L PT INR Potassium 5.8 H Chloride Carbon Dioxide 17 L Anion Gap BUN 26 H Creatinine 1.28 H Est GFR (CKD-EPI)AfAm Est GFR (CKD-EPI)NonAf BUN/Creatinine Ratio Glucose 62 L POC Glucose (mg/dL) 127 H Phosphorus 7.5 H Total Bilirubin 2.0 H AST 736 H ALT 307 H Alkaline Phosphatase 145 H Total Protein 6.1 L Albumin 3.3 L Albumin/Globulin Ratio 12/14/19 12/14/19 11:08 11:24 WBC Hct MCHC Neutrophils # (Manual) Lymphocytes # (Manual) PT INR Potassium Chloride Carbon Dioxide Anion Gap BUN Creatinine Est GFR (CKD-EPI)AfAm Est GFR (CKD-EPI)NonAf BUN/Creatinine Ratio Glucose POC Glucose (mg/dL) 56 L 103 H Phosphorus Total Bilirubin AST ALT Alkaline Phosphatase Total Protein Albumin Albumin/Globulin Ratio Assessment and Plan Assessment: * Possible TIA versus CVA. Patient has left arm weakness, although claims has been present for the last 1 year. Uncertain what is new, versus old findings. Patient also had an episode of hypoglycemia, which could be contributing to the focal symptoms. * Atrial fibrillation, on long-term anticoagulation, although held yesterday for left thyroidectomy. * Status post left thyroidectomy 12/13/2019. * Bilateral ICA stenosis > 70% per CTA. * hypertension * Elevated liver enzymes * Acute renal insufficiency Plan: * Resume Eliquis whenever cleared from surgery standpoint. * Consider MRI of the brain, if no medical or surgical contraindications. * Consider also adding aspirin 81 mg daily for stroke prevention related to carotid artery disease. * Suggest vascular surgical consultation for bilateral ICA stenosis of > 70%. * Check hemoglobin A1c and lipid panel. * Patient's left arm is weak with ataxia, but patient states is for the last 1 year. May benefit from PT and OT.
[2019-12-14] MEDS ORDERED: HYDROCORTISONE SUCCINATE 100 MG/2 ML VIAL IV STA (14:58)
[2019-12-14] MEDS ORDERED: LEVOTHYROXINE 75 MCG TAB PO SCH (15:30)
[2019-12-14 15:48] LABS: Glucose,Whole Blood 108 mg/dL (75-99)
[2019-12-14] MEDS ORDERED: propofoL 100 ML IV ONE (15:57)
--- NOTE | 2019-12-14 16:02 | P.CNPUL ---
History of Present Illness Consult date: 12/14/19 Requesting physician: Kourtney Boudreaux Reason for consult: dyspnea, pleural effusion, other Chief complaint: hypothermia, hypotension, large right-sided pleural effusion History of present illness: 84-year-old white female patient of Dr. Freed, who came in on 12/13/2019 for left thyroidectomy for history of large left thyroid nodule measuring 4 cm. The thyroid nodule was causing some compressive symptoms. the nodule was discovered during workup for abnormal thyroid labs in May. Patient had the new onset atrial fibrillation in August 2019. Patient had a thyroid uptake scan, thyroid ultrasound, and thyroid biopsy which was benign. 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 patient was admitted to medical surgical floor following her procedure, today is post operative day 1, and early in the morning "stroke was called for symptoms of left arm weakness, patient was also hypoglycemic, she was given an amp of 50% dextrose. Brain CT without contrast revealed atrophy with chronic appearing periventricular and deep white matter ischemic type changes.angiography CT showed bilateral internal carotid artery origins were narrowing greater than 70%, and a 1.7 cm nodule adjacent to moderate right pleural effusion within the right upper lung field. on today's labs her white count is elevated at 15.3, patient had evidence of acute kidney injury, with a rising creatinine, potassium of 5.8, and evidence of significantly abnormal LFTs, with acute rise from prev ious labs earlier in the day. AST was up to 736, ALT was 307, alkaline phosphatase was 145. it is unclear whether the patient was experiencing hypotension during the case or during the recovery period. Nevertheless throughout the day today her mentation had worsened, her blood pressures a very marginal, patient developed hypothermia with a temp of 93F rectally, she is receiving IV hydration with D5 half-normal saline at a rate of 125 an hour, patient is poorly responsive on today's exam, we were asked to see the patient initially for evaluation of large right-sided pleural effusion seen on CT of abdomen and pelvis obtained for the reason of abdominal pain. There was extensive vascular calcification within the aorta at the level of the diaphragm, there was vascular calcifications within the bilateral kidneys, small amount of free fluid within the pelvis, and small amount of air within the right atrium. During her evaluation and from the discussion with the attending physician it is clear that patient has deteriorated significantly on her postoperative day 1, is a concern for acute adrenal crisis in view of the surgery. She has significant and multiple lab abnormalities, level of consciousness is poor, we will obtain a stat blood gas, we will obtain a barium in the intensive care unit, and discussed the plan with the attending physician in the family were agreeable. Review of Systems All systems: negative Constitutional: Denies chills, Denies fever Eyes: denies blurred vision, denies pain Ears, nose, mouth and throat: Denies headache, Denies sore throat Cardiovascular: Denies chest pain, Denies shortness of breath Respiratory: Reports dyspnea, Denies cough Gastrointestinal: Denies abdominal pain, Denies diarrhea, Denies nausea, Denies vomiting Genitourinary: Denies dysuria, Denies hematuria Musculoskeletal: Denies myalgias Integumentary: Denies pruritus, Denies rash Neurological: Reports change in mentation, Denies numbness, Denies weakness Psychiatric: Denies anxiety, Denies depression Endocrine: Denies fatigue, Denies weight change Past Medical History Past Medical History: Atrial Fibrillation, Eye Disorder, Hypertension, Thyroid Disorder, Vascular Disorder Additional Past Medical History / Comment(s): macular degeneration, PVCs, thyroid nodule, edema bipin legs History of Any Multi-Drug Resistant Organisms: None Reported Past Surgical History: No Surgical Hx Reported Additional Past Surgical History / Comment(s): bipin cataracts, thyroid biopsy Past Anesthesia/Blood Transfusion Reactions: Family History of Problems w/ Anesthesia Additional Past Anesthesia/Blood Transfusion Reaction / Comment(s): father from postop PE Smoking Status: Former smoker Past Alcohol Use History: Daily - Past Family History Father Family Medical History: Pulmonary Embolus Medications and Allergies Home Medications Medication Instructions Recorded Confirmed Type Apixaban [Eliquis] 2.5 mg PO BID 09/07/19 12/08/19 History Cholecalciferol [Vitamin D3 (25 1,000 unit PO DAILY 09/07/19 12/08/19 History Mcg = 1000 Iu)] Vit C/E/Zn/Coppr/Lutein/Zeaxan 1 each PO BID 09/07/19 12/08/19 History [Preservision Areds 2 Softgel] lisinopriL [Zestril] 20 mg PO HS 09/07/19 12/08/19 History Calcium Carbonate [Tums] 500 mg PO DAILY 11/22/19 12/08/19 History Furosemide [Lasix] 40 mg PO DAILY 11/22/19 12/08/19 History Potassium Chloride 16 meq PO DAILY 11/22/19 12/08/19 History Metoprolol Tartrate [Lopressor] 50 mg PO 1900 12/08/19 12/08/19 History Metoprolol Tartrate [Lopressor] 75 mg PO 0800,1330 12/08/19 12/08/19 History Allergies Allergy/AdvReac Type Severity Reaction Status Date / Time Penicillins Allergy tongue Verified 12/13/19 08:57 itching Physical Exam Vitals: Vital Signs Temp Pulse Pulse Resp BP Pulse Ox 12/14/19 07:48 78 107/69 12/14/19 05:00 63 19 94 L 12/13/19 21:00 96.7 F L 107 H 18 119/79 92 L Intake and Output 12/14/19 12/14/19 12/14/19 06:59 14:59 22:59 Intake Total 600 Balance 600 Intake: Intake, IV Titration 600 Amount Lactated Ringers 1,000 ml 600 @ 125 mls/hr IV .Q8H ONE Rx#:[id number] Other: Voiding Method Toilet # Voids 1 0 0 GENERAL EXAM: poorly responsive, 84-year-old white female, on 2 L of oxygen a pulse ox of 94%, patient at times will answer with a 1 word responses, however she makes very poor eye contact, appears very encephalopathic does use accessory muscles of breathing for suspected metabolic acidosis HEAD: Normocephalic/atraumatic. EYES: Normal reaction of pupils, equal size. Conjunctiva pink, sclera white. NOSE: Clear with pink turbinates. THROAT: No erythema or exudates. anterior neck surgical incision, clean dry and intact NECK: No masses, no JVD, no thyroid enlargement, no adenopathy. CHEST: No chest wall deformity. Symmetrical expansion. LUNGS: Equal air entry with no crackles, wheeze, rhonchi or dullness. CVS: Regular rate and rhythm, normal S1 and S2, no gallops, no murmurs, no rubs ABDOMEN: Soft, nontender. No hepatosplenomegaly, normal bowel sounds, no guarding or rigidity. EXTREMITIES: No clubbing, no edema, no cyanosis, 2+ pulses and upper and lower extremities. MUSCULOSKELETAL: Muscle strength and tone normal. SPINE: No scoliosis or deformity SKIN: No rashes CENTRAL NERVOUS SYSTEM: poorly responsive. No focal deficits, tone is normal in all 4 extremities. Results - Laboratory Findings CBC and BMP: 12/14/19 08:53 12/14/19 12:27 PT/INR, D-dimer PT 12.6 sec (9.0-12.0) H 12/13/19 09:16 INR 1.2 (<1.2) H 12/13/19 09:16 Abnormal lab findings: Abnormal Labs 12/13/19 12/13/19 12/14/19 09:02 09:16 04:43 WBC 15.3 H Hct 50.6 H MCHC 30.0 L Neutrophils # (Manual) Lymphocytes # (Manual) PT 12.6 H INR 1.2 H Sodium Potassium Chloride 97 L Carbon Dioxide 33 H Anion Gap BUN 24 H Creatinine Est GFR (CKD-EPI)AfAm Est GFR (CKD-EPI)NonAf BUN/Creatinine Ratio Glucose POC Glucose (mg/dL) Phosphorus Total Bilirubin 1.4 H AST 42 H ALT Alkaline Phosphatase 211 H Total Protein Albumin Albumin/Globulin Ratio 12/14/19 12/14/19 12/14/19 04:43 07:36 08:50 WBC Hct MCHC Neutrophils # (Manual) Lymphocytes # (Manual) PT INR Sodium Potassium Chloride 95 L Carbon Dioxide 21.0 L Anion Gap 23.00 H BUN 28.0 H Creatinine Est GFR (CKD-EPI)AfAm 43.0 L Est GFR (CKD-EPI)NonAf 37.1 L BUN/Creatinine Ratio 21.54 H Glucose POC Glucose (mg/dL) 68 L 33 L Phosphorus 5.5 H Total Bilirubin 1.4 H AST 89 H ALT Alkaline Phosphatase 182 H Total Protein 5.5 L Albumin 3.30 L Albumin/Globulin Ratio 1.50 L 12/14/19 12/14/19 12/14/19 08:53 08:53 10:13 WBC 15.8 H Hct 49.2 H MCHC 29.6 L Neutrophils # (Manual) 15.00 H Lymphocytes # (Manual) 0.32 L PT INR Sodium Potassium 5.8 H Chloride Carbon Dioxide 17 L Anion Gap BUN 26 H Creatinine 1.28 H Est GFR (CKD-EPI)AfAm Est GFR (CKD-EPI)NonAf BUN/Creatinine Ratio Glucose 62 L POC Glucose (mg/dL) 127 H Phosphorus 7.5 H Total Bilirubin 2.0 H AST 736 H ALT 307 H Alkaline Phosphatase 145 H Total Protein 6.1 L Albumin 3.3 L Albumin/Globulin Ratio 12/14/19 12/14/19 12/14/19 11:08 11:24 11:40 WBC Hct MCHC Neutrophils # (Manual) Lymphocytes # (Manual) PT INR Sodium Potassium Chloride Carbon Dioxide Anion Gap BUN Creatinine Est GFR (CKD-EPI)AfAm Est GFR (CKD-EPI)NonAf BUN/Creatinine Ratio Glucose POC Glucose (mg/dL) 56 L 103 H 183 H Phosphorus Total Bilirubin AST ALT Alkaline Phosphatase Total Protein Albumin Albumin/Globulin Ratio 12/14/19 12/14/19 12/14/19 12:19 12:27 14:30 WBC Hct MCHC Neutrophils # (Manual) Lymphocytes # (Manual) PT INR Sodium 134 L Potassium Chloride 97 L Carbon Dioxide 19 L Anion Gap BUN 27 H Creatinine 1.36 H Est GFR (CKD-EPI)AfAm Est GFR (CKD-EPI)NonAf BUN/Creatinine Ratio Glucose 174 H POC Glucose (mg/dL) 113 H 125 H Phosphorus Total Bilirubin AST ALT Alkaline Phosphatase Total Protein Albumin Albumin/Globulin Ratio - Diagnostic Findings Chest x-ray: report reviewed, image reviewed Additional studies: Brain CT without contrast, angiography CT, and CT of the abdomen and pelvis reviewed Assessment and Plan Plan: Assessment: #1. Acute hypotension and hypothermia, suspect shock related to acute adrenal crisis , patient has been started on hydrocortisone, emergently transferred to the intensive care unit where she will be intubated #2. Acute change of mental status related to the above #3. Acute kidney injury and acute elevation of the transaminases possibly related to the adrenal crisis and hypotension #4. Left thyroid nodule with the biopsy with benign findings, causing compressive symptoms, status post thyroidectomy, postoperative day 1 #5. Left arm numbness with acute onset this morning with a brain CT showing atrophy and chronic appearing periventricular and deep white matter ischemic type changes. CT angios of the head and neck showed bilateral internal carotid artery origins narrowing greater than 70% #6. Large right-sided pleural effusion #7. Chronic atrial fibrillation, on Eliquis, which we'll place on hold #8. Hypertension #9. Macular degeneration #10. History of smoking in remission for last 20 years #11. Extensive vascular calcification within the aorta, and within the bilateral kidneys Plan: We will obtain a stat blood gas, however in the course of transferring the patient to the intensive care unit her level of consciousness continued to deteriorate, and her respirations are quiet shallow and bradypneic with impending respiratory failure, order was given to intubate the patient and placed on mechanical ventilator, we'll continue stress doses of IV hydrocortisone, we'll continue with fluid resuscitation and vasopressor support, Will [address] Eliquis on hold for possibility of procedures. we'll go through the patient's med list and make necessary adjustments, will review blood gas. Case discussed with the attending physician, and the patient's family, further CODE STATUS, and they're agreeable to ventilator support for potentially reversible causes. We'll continue to closely monitor in the intensive care unit. I performed a history & physical examination of the patient and discussed their management with my nurse practitioner, Estela Stanton. I reviewed the nurse pr actitioner's note and agree with the documented findings and plan of care. Lung sounds are positive for diminished breath sounds. The findings and the impression was discussed with the patient. I attest to the documentation by the nurse practitioner. Time with Patient: Greater than 30
[2019-12-14] MEDS ORDERED: NOREPINEPHRIN 4 MG-0.9% NS PMX 4 MG/250 ML ML IV ONE (16:05)
[2019-12-14] MEDS ORDERED: PANTOPRAZOLE 40 MG/10 ML VIAL IVP SCH (16:15)
--- NOTE | 2019-12-14 16:31 | XR ---
EXAMINATION TYPE: XR chest 1V DATE OF EXAM: 12/14/2019 COMPARISON: NONE HISTORY: Shortness of breath, intubation TECHNIQUE: Single frontal view of the chest is obtained. FINDINGS: The heart size is mildly prominent. Pulmonary vasculature is normal. Small right and minim al left pleural effusion are present Patient has been intubated and has the tip of the endotracheal tube approximately 1. Above the delmi . This should be pulled back 1 to 2 cm. Nasogastric tube transverses the thorax the tip in the left u pper quadrant of the abdomen. IMPRESSION: 1. Small right and minimal left pleural effusion. 2. Endotracheal tube tip 1.2 cm above the delmi, this could be pulled back 1 to 2 cm. 3. Nasogastric tube transverses the thorax the tip in left upper quadrant of the abdomen.
--- NOTE | 2019-12-14 16:40 | P.PN ---
Subjective Progress Note Date: 12/14/19 (Delayed charting seen at 0850) Principal diagnosis: thyroid nodule Patient is an 84 yo CF with a hx of a fib treated with cardioversion now on xarelto and metoprolol, macular degeneration, and HTN who presented for elective left thyroidectomy for thyroid nodule with neck pressure. initially she was doing well after surgery. However on the morning of 12/13 she was noted to be lethargic. She was also having some left arm weakness. Past contacted by nursing tennis coach was activated. Patient's blood sugar came back at 33. She received IV glucose and her symptoms improved. She underwent a stat CT brain and CTA of the head and neck.CT brain showed atrophy with chronic appearing periventricular and deep white matter ischemic changes.CTA of the head and neck showed bilateral internal carotid arteries with narrowing greater than 70% and a normal [place] of Amin. She was also noted to have a 1.7 cm nodule adjacent right pleural effusion within the right upper lobe. she is complaining of abdominal pain and also underwent a CT abdomen and pelvis.this demonstrated a small to moderate right and small left pleural effusion, compressive atelectasis, extensive vascular calcifications within the aortic specialist at the level of the diaphragm which may be creating flow limiting lesions, vascular calcification the bilateral kidneys, and a small amount of free fluid within the pelvis.laboratory analysis showed white blood cell count of 15.8, potassium 5.8 with slight hemolysis, CO2 17, anion gap 22, BUN 26, creatinine 1.28, phosphorus 7.5, AST 736, ALT 307. Repeat potassium level was normalized at 5.1. Case discussed with neurology adn Dr. Miller. Shortly after arrival to the cardiac unit and she again had an episode of hypoglycemia this time associated with hypotension. She was started on a D5 half normal saline drip with correction of her hypoglycemia. cardiology was consulted secondary to her history of atrial fibrillation. Pulmonary was consulted secondary to discovery of a pulmonary nodule and right sided pleural effusion. In the afternoon on 12/13 she became hypothermic and again had an episode of hypotension. She was having some confusion and lethargy. IV Solu- Cortef was ordered due to concerns for adrenal insufficiency. She was also started on Synthroid. Family updated by me. Patient seen and examined at multiple times througout the day. She complains of abdominal pain. Her left arm was week and she was having some numbness in her left arm. General: non toxic, no distress, appears at stated age Derm: warm, dry Head: atraumatic, normocephalic, symmetric Eyes: EOMI, no lid lag, anicteric sclera Mouth: [no lip lesion], [mucus membranes moist] Cardiovascular: [S1S2 reg], [no murmur], [positive posterior tibial pulse bilateral], Lungs: [Decreased bs bilateral] , [no accessory muscle use] Abdominal: [soft], [ +tender to palpation RLQ], [no guarding], [no appreciable organomegaly] Ext: [no gross muscle atrophy], [no edema], [no contractures] Neuro: [ CN II-XI grossly intact] LEft pronator drift. SEE NIH score for full nuero exam. Psych: [Alert], [oriented], falt affect, lethargic Acute metabolic encepahlopathy, possible adrenal insufficiecny - Start solucortef - Check Cortisol and ACTH levels - Follow closely - start small dose of IV synthroid incase over hypothyrodism was precipitated by thyroidectomy. Left arm weakness, improved - suspect due to hypoglycemia - neuro recs appreciated - CT brain without acute process - CT head and neck with bilateral carotid stenosis Hypoglycemia - Likely due to above continue with D5 0.45 - follow BS Right pulm nodule with large right sided pleural effusion - Consult pulm Caroltic stenosis bilateral - outpatient evaluation Thyroid nodule - s/p left thyroidectomy - pain control - antiemetics - start thyroid replacement therapy A fib - metoprolol - eliquis - consult cardio - tele HTN - controlled - hold lisinopril - metoprolol Macular degeneration - assistive care Thank you for allowing us to participate in the care of this pleasant patient. Do not hesitate to contact us with questions. Someone can be reached from the [facility] hospitalist group all hours of the day at [phone] or via [employer]. Objective - Vital Signs Vital signs: Vital Signs Temp 96.7 F L 12/13/19 21:00 Pulse 96 12/14/19 10:45 Resp 18 12/14/19 10:45 BP 99/66 12/14/19 10:45 Pulse Ox 94 L 12/14/19 05:00 Intake & Output 12/13/19 12/14/19 12/14/19 18:59 06:59 18:59 Intake Total 1025 975 Output Total 10 Balance 1015 975 Weight 64.5 kg Intake: IV 1025 Intake, IV Titration 975 Amount Lactated Ringers 1,000 ml 975 @ 125 mls/hr IV .Q8H ONE Rx#:[id number] Output: Estimated Blood Loss 10 Other: Voiding Method Toilet Toilet Bedside Commode # Voids 1 0 - Labs CBC & Chem 7: 12/14/19 16:46 12/14/19 16:46 Labs: Abnormal Lab Results - Last 24 Hours (Table) 12/14/19 12/14/19 12/14/19 Range/Units 04:43 04:43 07:36 WBC 15.3 H (3.8-10.6) k/uL Hct 50.6 H (34.0-46.0) % MCHC 30.0 L (31.0-37.0) g/dL Neutrophils # (Manual) (1.3-7.7) k/uL Lymphocytes # (Manual) (1.0-4.8) k/uL Sodium (137-145) mmol/L Potassium (3.5-5.1) mmol/L Chloride 95 L (96-109) mmol/L Carbon Dioxide 21.0 L (21.6-31.8) mmol/L Anion Gap 23.00 H (4.00-12.00) mmol/L BUN 28.0 H (9.0-27.0) mg/dL Creatinine (0.52-1.04) mg/dL Est GFR (CKD-EPI)AfAm 43.0 L (60.0-200.0) Est GFR (CKD-EPI)NonAf 37.1 L (60.0-200.0) BUN/Creatinine Ratio 21.54 H (12.00-20.00) Ratio Glucose (74-99) mg/dL POC Glucose (mg/dL) 68 L (75-99) mg/dL Phosphorus 5.5 H (2.4-5.1) mg/dL Total Bilirubin 1.4 H (0.2-1.2) mg/dL AST 89 H (13-35) U/L ALT (4-34) U/L Alkaline Phosphatase 182 H (41-126) U/L Total Protein 5.5 L (6.2-8.2) g/dL Albumin 3.30 L (3.80-4.90) g/dL Albumin/Globulin Ratio 1.50 L (1.60-3.17) g/dL 12/14/19 12/14/19 12/14/19 Range/Units 08:50 08:53 08:53 WBC 15.8 H (3.8-10.6) k/uL Hct 49.2 H (34.0-46.0) % MCHC 29.6 L (31.0-37.0) g/dL Neutrophils # (Manual) 15.00 H (1.3-7.7) k/uL Lymphocytes # (Manual) 0.32 L (1.0-4.8) k/uL Sodium (137-145) mmol/L Potassium 5.8 H (3.5-5.1) mmol/L Chloride (96-109) mmol/L Carbon Dioxide 17 L (21.6-31.8) mmol/L Anion Gap (4.00-12.00) mmol/L BUN 26 H (9.0-27.0) mg/dL Creatinine 1.28 H (0.52-1.04) mg/dL Est GFR (CKD-EPI)AfAm (60.0-200.0) Est GFR (CKD-EPI)NonAf (60.0-200.0) BUN/Creatinine Ratio (12.00-20.00) Ratio Glucose 62 L (74-99) mg/dL POC Glucose (mg/dL) 33 L (75-99) mg/dL Phosphorus 7.5 H (2.4-5.1) mg/dL Total Bilirubin 2.0 H (0.2-1.2) mg/dL AST 736 H (13-35) U/L ALT 307 H (4-34) U/L Alkaline Phosphatase 145 H (41-126) U/L Total Protein 6.1 L (6.2-8.2) g/dL Albumin 3.3 L (3.80-4.90) g/dL Albumin/Globulin Ratio (1.60-3.17) g/dL 12/14/19 12/14/19 12/14/19 Range/Units 10: 11:08 11:24 WBC (3.8-10.6) k/uL Hct (34.0-46.0) % MCHC (31.0-37.0) g/dL Neutrophils # (Manual) (1.3-7.7) k/uL Lymphocytes # (Manual) (1.0-4.8) k/uL Sodium (137-145) mmol/L Potassium (3.5-5.1) mmol/L Chloride (96-109) mmol/L Carbon Dioxide (21.6-31.8) mmol/L Anion Gap (4.00-12.00) mmol/L BUN (9.0-27.0) mg/dL Creatinine (0.52-1.04) mg/dL Est GFR (CKD-EPI)AfAm (60.0-200.0) Est GFR (CKD-EPI)NonAf (60.0-200.0) BUN/Creatinine Ratio (12.00-20.00) Ratio Glucose (74-99) mg/dL POC Glucose (mg/dL) 127 H 56 L 103 H (75-99) mg/dL Phosphorus (2.4-5.1) mg/dL Total Bilirubin (0.2-1.2) mg/dL AST (13-35) U/L ALT (4-34) U/L Alkaline Phosphatase (41-126) U/L Total Protein (6.2-8.2) g/dL Albumin (3.80-4.90) g/dL Albumin/Globulin Ratio (1.60-3.17) g/dL 12/14/19 12/14/19 12/14/19 Range/Units 11:40 12:19 12:27 WBC (3.8-10.6) k/uL Hct (34.0-46.0) % MCHC (31.0-37.0) g/dL Neutrophils # (Manual) (1.3-7.7) k/uL Lymphocytes # (Manual) (1.0-4.8) k/uL Sodium 134 L (137-145) mmol/L Potassium (3.5-5.1) mmol/L Chloride 97 L (96-109) mmol/L Carbon Dioxide 19 L (21.6-31.8) mmol/L Anion Gap (4.00-12.00) mmol/L BUN 27 H (9.0-27.0) mg/dL Creatinine 1.36 H (0.52-1.04) mg/dL Est GFR (CKD-EPI)AfAm (60.0-200.0) Est GFR (CKD-EPI)NonAf (60.0-200.0) BUN/Creatinine Ratio (12.00-20.00) Ratio Glucose 174 H (74-99) mg/dL POC Glucose (mg/dL) 183 H 113 H (75-99) mg/dL Phosphorus (2.4-5.1) mg/dL Total Bilirubin (0.2-1.2) mg/dL AST (13-35) U/L ALT (4-34) U/L Alkaline Phosphatase (41-126) U/L Total Protein (6.2-8.2) g/dL Albumin (3.80-4.90) g/dL Albumin/Globulin Ratio (1.60-3.17) g/dL 12/14/19 12/14/19 Range/Units 14:30 15:35 WBC (3.8-10.6) k/uL Hct (34.0-46.0) % MCHC (31.0-37.0) g/dL Neutrophils # (Manual) (1.3-7.7) k/uL Lymphocytes # (Manual) (1.0-4.8) k/uL Sodium (137-145) mmol/L Potassium (3.5-5.1) mmol/L Chloride (96-109) mmol/L Carbon Dioxide (21.6-31.8) mmol/L Anion Gap (4.00-12.00) mmol/L BUN (9.0-27.0) mg/dL Creatinine (0.52-1.04) mg/dL Est GFR (CKD-EPI)AfAm (60.0-200.0) Est GFR (CKD-EPI)NonAf (60.0-200.0) BUN/Creatinine Ratio (12.00-20.00) Ratio Glucose (74-99) mg/dL POC Glucose (mg/dL) 125 H 108 H (75-99) mg/dL Phosphorus (2.4-5.1) mg/dL Total Bilirubin (0.2-1.2) mg/dL AST (13-35) U/L ALT (4-34) U/L Alkaline Phosphatase (41-126) U/L Total Protein (6.2-8.2) g/dL Albumin (3.80-4.90) g/dL Albumin/Globulin Ratio (1.60-3.17) g/dL
[2019-12-14 16:59] LABS: Glucose,Whole Blood 115 mg/dL (75-99)
[2019-12-14 17:15] LABS: ABG Base Excess -15.2 mmol/L; ABG HCO3 15 mmol/L (21-25); ABG PCO2 54 mmHg (35-45); ABG PO2 291 mmHg (83-108); ABG TCO2 17 mmol/L (19-24)
[2019-12-14 17:16] LABS: HCT 44.2 % (34.0-46.0); Hypochromasia Marked; MCH 29.8 pg (25.0-35.0); MCHC 29.3 g/dL (31.0-37.0); MCV 101.7 fL (80.0-100.0); Macrocytosis Slight; Mean Platelet Volume 9.4; Platelet Count 176 k/uL (150-450); RBC 4.35 m/uL (3.80-5.40)
[2019-12-14 17:18] LABS: ABG PH 7.05 (7.35-7.45)
[2019-12-14 17:21] LABS: Partial Thromboplastin Time 35.4 sec (22.0-30.0); Prothrombin Time 28.9 sec (9.0-12.0)
[2019-12-14 17:27] LABS: Calcium 8.6 mg/dL (8.4-10.2)
--- NOTE | 2019-12-14 17:34 | XR ---
EXAMINATION TYPE: XR chest 1V portable DATE OF EXAM: 12/14/2019 COMPARISON: Today HISTORY: Intubation TECHNIQUE: FINDINGS: Endotracheal tube is 3.5 cm from the delmi. There is blunting of the costophrenic angles m ore on the right side. There is nasogastric tube with the tip in the gastric fundus. There is pulmona ry vascular congestion. There is some pulmonary interstitial edema. IMPRESSION: Pleural effusions and pulmonary interstitial edema. Edema is slightly increased compared to exam one hour ago. This is consistent with worsening congestive heart failure.
[2019-12-14] MEDS: SODIUM BICARB 8.4% 50 ML SYR (1 MEQ/ML) IV STA ×5 (17:45→18:54)
[2019-12-14] MEDS: NOREPINEPHRINE 32 MG in SODIUM CHLORIDE 0.9% 218 ML IV SCH (17:45)
[2019-12-14] MEDS ORDERED: SODIUM BICARB 8.4% 50 ML SYR (1 MEQ/ML) ONE (18:06)
[2019-12-14] MEDS: SODIUM CHLORIDE 0.9% 150 ML with VASOPRESSIN 60 UNIT IV SCH ×4 (18:35→22:03)
[2019-12-14 18:48] LABS: ABG Base Excess -3.8 mmol/L; ABG HCO3 23 mmol/L (21-25); ABG Oxygen Saturation 93.9 % (94-97); ABG PCO2 49 mmHg (35-45); ABG PH 7.28 (7.35-7.45); ABG PO2 72 mmHg (83-108); ABG TCO2 25 mmol/L (19-24)
--- NOTE | 2019-12-14 18:48 | US ---
EXAMINATION TYPE: US chest DATE OF EXAM: 12/14/2019 COMPARISON: NONE CLINICAL HISTORY: Markings for thoracentesis by pulmonary staff. TECHNIQUE: Targeted ultrasound of the posterior lower bilateral hemithoraces EXAM MEASUREMENTS: Right Pleural Effusion pocket size: 13.7 cm Right skin surface to fluid distance: 1.9 cm Lung tissue visualized 6 cm deep in pocket. Left Pleural Effusion pocket size: 5.5 cm Left skin surface to fluid distance: 2.5 cm Right side marked for possible thoracentesis outside the dept. Pulmonologists are able to review the images in the patient?s EMR. IMPRESSION: Left and right pleural effusion is demonstrated. IMPRESSIONS:
[2019-12-14] MEDS: DEXTROSE 5% IN WATER 1,000 ML with SODIUM BICARB (1 MEQ/ML) 150 ML IV SCH (18:50)
[2019-12-14] MEDS: DEXTROSE 5%-0.45% NACL 1,000 ML IV SCH (18:50)
[2019-12-14] MEDS ORDERED: LACTATED RINGERS 1,000 ML IV ONE (19:00)
[2019-12-14] MEDS ORDERED: MEROPENEM 1 GM in SODIUM CHLORIDE 0.9% 100 ML IVPB ONE (19:30)
[2019-12-14] MEDS ORDERED: LEVOTHYROXINE IVP 100 MCG/5 ML VIAL IV ONE (20:00)
[2019-12-14] MEDS ORDERED: HYDROCORTISONE SUCCINATE 100 MG/2 ML VIAL IV SCH ×2 (20:00)
[2019-12-14] MEDS ORDERED: HEPARIN SODIUM,PORCINE 5,000 UNIT/ML 1 ML VIAL SQ SCH (21:00)
[2019-12-14] MEDS: PANTOPRAZOLE 40 MG/10 ML VIAL IVP SCH (21:27)
[2019-12-14] MEDS: CHLORHEXIDINE GLUCONATE 15 ML CUP MUCOUS MEM SCH (21:30)
[2019-12-14 23:16] LABS: HCT 39.8 % (34.0-46.0); HGB 12.4 gm/dL (11.4-16.0); Hypochromasia Marked; MCH 30.2 pg (25.0-35.0); MCHC 31.1 g/dL (31.0-37.0); MCV 97.2 fL (80.0-100.0); Mean Platelet Volume 9.8; Platelet Count 163 k/uL (150-450); RBC 4.09 m/uL (3.80-5.40); RDW 14.3 % (11.5-15.5); WBC 16.2 k/uL (3.8-10.6)
[2019-12-14] MEDS: HYDROCORTISONE SUCCINATE 100 MG/2 ML VIAL IV SCH (23:19)
[2019-12-14 23:21] LABS: INR 3.4 (<1.2); Prothrombin Time 33.5 sec (9.0-12.0)
[2019-12-14 23:26] LABS: Albumin 2.1 g/dL (3.5-5.0); Potassium 4.9 mmol/L (3.5-5.1); Total Bilirubin 2.4 mg/dL (0.2-1.3)
[2019-12-15 00:31] LABS: T4, Free (Free Thyroxine) 4.87 ng/dL (0.78-2.19)
[2019-12-15 01:30] LABS: Hemoglobin A1C 6.1 % (4.0-6.0)
[2019-12-15] MEDS: DEXTROSE 5% IN WATER 1,000 ML with SODIUM BICARB (1 MEQ/ML) 150 ML IV SCH ×2 (02:31→08:57)
[2019-12-15 05:08] LABS: HCT 42.4 % (34.0-46.0); HGB 13.2 gm/dL (11.4-16.0); Hypochromasia Marked; MCH 29.7 pg (25.0-35.0); MCHC 31.1 g/dL (31.0-37.0); MCV 95.4 fL (80.0-100.0); Mean Platelet Volume 10.6; Platelet Count 146 k/uL (150-450); RBC 4.45 m/uL (3.80-5.40); RDW 14.3 % (11.5-15.5); WBC 15.4 k/uL (3.8-10.6)
[2019-12-15 05:26] LABS: INR 3.6 (<1.2); Prothrombin Time 35.1 sec (9.0-12.0)
[2019-12-15 05:29] LABS: Cholesterol 62 mg/dL (<200); HDL Cholesterol 19 mg/dL (40-60); Triglycerides 238 mg/dL (<150)
[2019-12-15 05:31] LABS: African American GFR (CKD) 36 (>60 ml/min/1.73 sqM); Albumin 2.2 g/dL (3.5-5.0); Alkaline Phosphatase 138 U/L (38-126); Anion Gap 17 mmol/L; Blood Urea Nitrogen 27 mg/dL (7-17); Calcium 7.9 mg/dL (8.4-10.2); Carbon Dioxide 25 mmol/L (22-30); Chloride 93 mmol/L (98-107); Glucose 176 mg/dL (74-99); Magnesium 1.9 mg/dL (1.6-2.3); Non-African American GFR(CKD) 31 (>60 ml/min/1.73 sqM); Phosphorus 5.3 mg/dL (2.5-4.5); Potassium 4.9 mmol/L (3.5-5.1); Sodium 135 mmol/L (137-145); Total Bilirubin 2.9 mg/dL (0.2-1.3); Total Protein 4.3 g/dL (6.3-8.2)
--- NOTE | 2019-12-15 05:43 | PCN ---
PROCEDURE NOTE OPERATIVE REPORT: Placement of right brachial arterial line. PREOPERATIVE DIAGNOSIS: Hypotension and acute hypoxic respiratory failure. POSTOPERATIVE DIAGNOSIS: Hypotension and acute hypoxic respiratory failure. ANESTHESIA USED: None deployed. DESCRIPTION OF PROCEDURE: Patient was placed in supine position, the right brachial artery was localized by Doppler. Then the area was prepared in a sterile fashion, and the right brachial artery was palpated, cannulated, and a guidewire was placed. A Cook catheter was inserted over the guidewire, the guidewire was removed. Good blood flow and good waveform noted. No evidence of any immediate complication. The line was secured using 3.0 silk sutures. MMODL / IJN: [id number] /
--- NOTE | 2019-12-15 05:43 | PCN ---
PROCEDURE NOTE OPERATIVE REPORT: Placement of right femoral triple-lumen catheter. PREOPERATIVE DIAGNOSIS: Hypotension and acute hypoxic respiratory failure. POSTOPERATIVE DIAGNOSIS: Hypotension and acute hypoxic respiratory failure. ANESTHESIA USED: 2 mL of 1% lidocaine. DESCRIPTION OF PROCEDURE: The patient was placed in a supine position. The right groin was prepared in a sterile fashion and drapes were applied. The right femoral vein was cannulated, guidewire was placed, and the area was dilated around the guidewire with the dilator. Then a triple- lumen catheter was inserted over the guidewire and the guidewire was removed. Good blood flow noted in the 3 different ports of the triple-lumen catheter. The procedure was well tolerated and no evidence of any immediate complication. MMODL / IJN: [id number] /
[2019-12-15 05:58] LABS: ALT 3023 U/L (4-34)
[2019-12-15 06:07] LABS: AST 8644 U/L (14-36)
[2019-12-15] MEDS: HYDROCORTISONE SUCCINATE 100 MG/2 ML VIAL IV SCH ×4 (06:24→23:30)
[2019-12-15 07:45] LABS: ABG Base Excess 3.1 mmol/L; ABG HCO3 27 mmol/L (21-25); ABG Oxygen Saturation 98.3 % (94-97); ABG PCO2 38 mmHg (35-45); ABG PH 7.46 (7.35-7.45); ABG PO2 99 mmHg (83-108); ABG TCO2 28 mmol/L (19-24)
[2019-12-15] MEDS ORDERED: DILTIAZEM DRIP BOLUS FROM BAG 1 MG SOLN IV ONE (07:45)
[2019-12-15 07:47] LABS: Allen Test Performed? NO
[2019-12-15] MEDS: DEXTROSE 5%-0.45% NACL 1,000 ML IV SCH (08:19)
[2019-12-15] MEDS: DILTIAZEM 125 MG in SODIUM CHLORIDE 0.9% 100 ML IV SCH (08:20)
--- NOTE | 2019-12-15 08:32 | XR ---
EXAMINATION TYPE: XR chest 1V portable DATE OF EXAM: 12/15/2019 CLINICAL HISTORY: Tube placement TECHNIQUE: Portable semiupright view of the chest COMPARISON: 12/14/2019 chest radiographs FINDINGS: Endotracheal tube distal tip again at the level of the clavicular heads. Enteric tube with nonvisualization of the distal tip. Cardiomegaly. Calcified atherosclerotic disease of the thoracic aorta. Small to moderate right and small left pleural effusions unchanged. Interstitial edema mildly decreased versus 12/14/2019 comparison at 5:09 PM. No pneumothorax. IMPRESSION: 1. Pulmonary interstitial edema mildly decreased versus 12/14/2019. 2. Unchanged bilateral pleural effusions.
[2019-12-15] MEDS ORDERED: PHYTONADIONE 10 MG in SODIUM CHLORIDE 0.9% 50 ML IVPB STA (08:38)
[2019-12-15] MEDS ORDERED: LEVOTHYROXINE IVP 100 MCG/5 ML VIAL IV SCH (09:00)
[2019-12-15] MEDS: PANTOPRAZOLE 40 MG/10 ML VIAL IVP SCH ×2 (09:45→20:16)
[2019-12-15] MEDS: CHLORHEXIDINE GLUCONATE 15 ML CUP MUCOUS MEM SCH ×2 (09:45→20:16)
[2019-12-15] MEDS: MEROPENEM 1 GM in SODIUM CHLORIDE 0.9% 100 ML IVPB SCH ×2 (09:46→20:16)
--- NOTE | 2019-12-15 10:42 | ECHOF ---
Referral Reason:cardiac status/cardiogenic shock MEASUREMENTS -------- HEIGHT: 167.6 cm WEIGHT: 64.4 kg BP: 97/48 RVIDd: 3.3 cm (< 3.3) IVSd: 1.5 cm (0.6 - 1.1) LVIDd: 3.5 cm (3.9 - 5.3) LVPWd: 1.4 cm (0.6 - 1.1) IVSs: 1.8 cm LVIDs: 2.8 cm LVPWs: 1.8 cm LA Diam: 4.3 cm (2.7 - 3.8) LAESV Index (A-L): 41.20 ml/m Ao Diam: 2.8 cm (2.0 - 3.7) AV Cusp: 1.7 cm (1.5 - 2.6) MV EXCURSION: 16.721 mm (> 18.000) MV EF SLOPE: 46 mm/s (70 - 150) EPSS: 1.0 cm RAP: 15.00 mmHg RVSP: 49.03 mmHg FINDINGS -------- Atrial fibrillation. This was a technically good study. This was a technically adequate study. The left ventricular size is normal. There is moderate concentric left ventricular hypertrophy. T here is severe global hypokinesis of LV . Overall left ventricular systolic function is severely im paired with, an EF between 20 - 25 %. The right ventricle is mildly enlarged. LA is severely dilated >40 ml/m2 The right atrial size is normal. Interatrial and interventricular septum intact. Aortic valve is trileaflet and is mildly thickened. There is mild aortic regurgitation. The mitral valve leaflets are mildly thickened. Severe mitral regurgitation is present. Severe tricuspid regurgitation present. There is mild to moderate pulmonary hypertension. The rig ht ventricular systolic pressure, as measured by Doppler, is 49.03mmHg. The pulmonic valve was not well visualized. There is no pulmonic regurgitation present. The aortic root size is normal. The inferior vena cava is dilated with poor inspiratory collapse which is consistent with estimated r ight atrial pressure of 15 mmHg. There is no pericardial effusion. CONCLUSIONS -------- 1. There is moderate concentric left ventricular hypertrophy. 2. There is severe global hypokinesis of LV . 3. Overall left ventricular systolic function is severely impaired with, an EF between 20 - 25 %. 4. The right ventricle is mildly enlarged. 5. LA is severely dilated >40 ml/m2 6. Aortic valve is trileaflet and is mildly thickened. 7. There is mild aortic regurgitation. 8. The mitral valve leaflets are mildly thickened. 9. Severe mitral regurgitation is present. 10. Severe tricuspid regurgitation present. 11. There is mild to moderate pulmonary hypertension. 12. The inferior vena cava is dilated with poor inspiratory collapse which is consistent with estimat ed right atrial pressure of 15 mmHg. 13. There is no pericardial effusion. SAMPLE BOX MAKER: OBINNA Escobar
[2019-12-15 10:59] LABS: Folate, Serum 18.9 ng/mL
--- NOTE | 2019-12-15 11:44 | CONS ---
CONSULTATION REASON FOR CONSULT: Renal failure. HISTORY OF PRESENT ILLNESS: Patient is an 84-year-old female who was admitted to the hospital for thyroid surgery. Patient has a history of atrial fibrillation and there was concern regarding thyroid dysfunction. Patient was taken to the OR on 12/13/2019 and she had left thyroidectomy performed. It appears like post op patient developed significant hypotension, she crashed. She was intubated. There is concern for ischemic bowel currently. Her lactic acid is significantly elevated at 13.8. Patient had CT angiogram done on 12/14/2019. Currently urine output is low at 5 to 10 mL an hour. Patient is NO CODE on her code status. She is maintained on Levophed which is increasing since yesterday. Today it is at about 16 mcg. Patient remains on the vent, FiO2 at 50%. PAST MEDICAL HISTORY: Atrial fibrillation, hypertension. It looks like patient had possible hyperthyroidism, macular degeneration, thyroid nodule, history of PVCs. PAST SURGICAL HISTORY: Bilateral cataract surgery, thyroid biopsy. SOCIAL HISTORY: Patient is a former smoker. No history of drug abuse or alcohol abuse. MEDICATIONS: Included Eliquis, Zestril, Tums, Lasix, Lopressor. ALLERGIES: Include PENICILLIN, which causes itching on the tongue. REVIEW OF SYSTEMS: As per HPI. PHYSICAL EXAMINATION: Patient is currently sedated, she is on the vent, blood pressure 90/44, heart rate 114 per minute, she is afebrile. Examination of the heart S1, S2. Examination of the lungs, bilateral breath sounds are heard. Abdomen is soft. Examination of the lower extremities shows edema 2+ bilaterally. SOCKET WELDER HELPER exam cannot be performed. LABS: Show sodium 135, potassium 4.9, chloride 93, BUN 27, creatinine 1.5. Lactic acid 13.8. UA is not available. ASSESSMENT: 1. Acute kidney injury ATN associated with hypotension, hypoperfusion and shock, currently oliguric, maintained on pressors, maintained on IV fluids. No nephrotoxic agents on board. 2. Severe lactic acidosis associated with bowel ischemia, maintained on bicarb drip which I will continue for now. 3. Hypoxic respiratory failure. 4. Shock, postoperatively after left thyroidectomy, currently maintained on adrenal support in the form of steroids, maintained on IV Synthroid. The patient also had hypoglycemia, which is currently improved. Patient has been on D5 at 0.45. 5. History of atrial fibrillation with rapid ventricular response currently. 6. Severe lactic acidosis associated with bowel ischemia. PLAN: Continue pressor support. Continue IV fluids, change to D5.9. May continue with the bicarb drip for now. Continue IV steroids and avoid nephrotoxic agents. Thank you for this consultation. Will continue to follow the patient with you during her hospitalization. MMODL / IJN: [id number] /
--- NOTE | 2019-12-15 11:51 | US ---
EXAMINATION TYPE: US liver DATE OF EXAM: 12/15/2019 COMPARISON: CT 12/14/2019 CLINICAL HISTORY: hepatic failure lactic acidosis. ICU patient on a ventilator. Difficult and limited exam due to overlying bowel gas and patient limitations EXAM MEASUREMENTS: Liver Length: 11.4 cm Gallbladder Wall: 0.25 cm CBD: 1.2 cm Right Kidney: 7.7 x 3.1 x 2.9 cm Pancreas: Normal where visualized. Partially obscured by bowel gas. Liver: Heterogeneous and mildly diffusely hypoechoic. Partially obscured. Gallbladder: There is gallbladder wall edema without significant thickening, likely due to hepatic di sease. No shadowing cholelithiasis. No pericholecystic edema. Unable to assess for sonographic Lipscomb sign due to patient intubation and ventilation. CBD: Dilated Right Kidney: Mild atrophy, with mild cortical thinning. No hydronephrosis. IMPRESSION: 1. Common bile duct is dilated up to 12 mm. No cholelithiasis. Findings may represent choledocholithi asis or stricture. Recommend follow-up with MRCP. 2. Heterogenous and diffusely hypoechoic liver. Findings likely represent diffuse hepatocellular proc ess such as hepatitis. 3. Mild right renal atrophy.
--- NOTE | 2019-12-15 12:30 | P.CRDCN ---
History of Present Illness History of present illness: HISTORY OF PRESENTING ILLNESS This is a pleasant 84-year-old female past medical history significant for chronic persistent atrial fibrillation status post unsuccessful cardioversi on, hypertension and former nicotine dependence. She follows in the office with Dr. Sethi. We have been asked to see in consultation for atrial fibrillation. She came to the hospital for an elective left thyroidectomy secondary to benign thyroid nodule. She underwent surgery yesterday and shortly thereafter developed symptoms suggestive of stroke. Diagnostic imaging was unremarkable for acute stroke, neurology is following. In the afternoon she developed hypotension, hypothermia and altered mental status and underwent rapid sequence intubation and was transferred to the intensive care unit. OG tube output has been copious and dark in color. Echocardiogram obtained reveals impaired LV systolic function with global LV hypokinesia and ejection fraction 20-25%, severe MR, severe TR and moderate pulmonary hypertension with an RVSP of 49 mmHg. Previously in April of this year ejection fraction was normal. She underwent a stress test August 2019 that was negative for reversibility. She developed atrial fibrillation that was quite symptomatic earlier this year underwent cardioversion that was initially successful but only lasted for a few minutes. She was following with Dr. Merlos as well for possible ablation however this thyroid nodule came up in the ablation was postponed until further investigation and evaluation of the thyroid was complete. She is seen and exam ined in the intensive care unit maintained on mechanical ventilation. She has significant swelling noted to the neck with surgical incision noted. Abdomen is firm and distended. Currently in A. fib with RVR on Cardizem infusion. This morning's chest x-ray reveals pulmonary interstitial edema and bilateral pleural effusions. Eliquis was resumed yesterday afternoon but not given. CT of the abdomen and pelvis revealed small to moderate right and small left pleural effusion, atelectasis of the right lower lobe, extensive vascular calcification within the aorta possibly creating a flow-limiting stenosis, vascular calcifications with him the kidneys bilaterally, small amount of free fluid wi thin the pelvis and small amount of air in the right atrium. Ultrasound of the chest revealed a right pleural effusion pocket size of 13.7 cm and a left pleural effusion pocket size of 5.5 cm. Laboratory data reviewed, WBC 15.4, hemoglobin 13.2, platelets 146, INR 3.6, sodium 135, potassium 4.9, creatinine 1.5, lactic acid 12.3, magnesium 1.9, total bilirubin 2.9, AST 8644, ALT 3023, triglycerides 238, pH 7.46, pCO2 38, pO2 99 and bicarb 27. REVIEW OF SYSTEMS At the time of my exam: Unable to obtain accurate review of systems secondary to mechanical ventilation and sedation. PHYSICAL EXAMINATION Blood pressure 106/55 heart rate to 122 afebrile and maintaining oxygen saturation on mechanical ventilation. CONSTITUTIONAL: Maintained on mechanical ventilation HEENT: Head is normocephalic. Mucous membranes of the mouth are moist. No JVD. Bilateral carotid bruit auscultated. CHEST EXAMINATION: Lungs are clear to auscultation. No chest wall tenderness is noted on palpation or with deep breathing. Diminished bilaterally. HEART EXAMINATION: Irregular rate and rhythm. S1, S2 heard. Systolic ejection murmur at the left sternal border, no gallops or rub. ABDOMEN: Firm and distended. EXTREMITIES: 1+ peripheral pulses, trace lower extremity non-pitting edema. NEUROLOGIC EXAMINATION: Patient is sedated ASSESSMENT Acute hypotension and hypothermia, suspect shock secondary to acute adrenal crisis Acute systolic heart failure Transaminitis Left thyroidectomy, postoperative day #2 Pleural effusions bilaterally Chronic persistent atrial fibrillation previously maintained on Eliquis Hypertension Lactic acidosis PLAN Continue Cardizem for rate control. We'll resume Lopressor when her blood pressure can tolerate. Prognosis guarded. We will continue to follow along and make recommendations accordingly. Thank you kindly for this consultation. Nurse Practitioner note has been reviewed, I agree with a documented findings and plan of care. Patient was seen and examined. Past Medical History Past Medical History: Atrial Fibrillation, Eye Disorder, Hypertension, Thyroid Disorder, Vascular Disorder Additional Past Medical History / Comment(s): macular degeneration, PVCs, thyroid nodule, edema bipin legs History of Any Multi-Drug Resistant Organisms: None Reported Past Surgical History: No Surgical Hx Reported Additional Past Surgical History / Comment(s): bipin cataracts, thyroid biopsy Past Anesthesia/Blood Transfusion Reactions: Family History of Problems w/ Anesthesia Additional Past Anesthesia/Blood Transfusion Reaction / Comment(s): father from postop PE Smoking Status: Former smoker Past Alcohol Use History: Daily - Past Family History Father Family Medical History: Pulmonary Embolus Medications and Allergies Home Medications Medication Instructions Recorded Confirmed Type Apixaban [Eliquis] 2.5 mg PO BID 09/07/19 12/08/19 History Cholecalciferol [Vitamin D3 (25 1,000 unit PO DAILY 09/07/19 12/08/19 History Mcg = 1000 Iu)] Vit C/E/Zn/Coppr/Lutein/Zeaxan 1 each PO BID 09/07/19 12/08/19 History [Preservision Areds 2 Softgel] lisinopriL [Zestril] 20 mg PO HS 09/07/19 12/08/19 History Calcium Carbonate [Tums] 500 mg PO DAILY 11/22/19 12/08/19 History Furosemide [Lasix] 40 mg PO DAILY 11/22/19 12/08/19 History Potassium Chloride 16 meq PO DAILY 11/22/19 12/08/19 History Metoprolol Tartrate [Lopressor] 50 mg PO 1900 12/08/19 12/08/19 History Metoprolol Tartrate [Lopressor] 75 mg PO 0800,1330 12/08/19 12/08/19 History Allergies Allergy/AdvReac Type Severity Reaction Status Date / Time Penicillins Allergy tongue Verified 12/13/19 08:57 itching Physical Exam Vitals: Vital Signs Temp Pulse Pulse Pulse Resp BP BP 12/15/19 08:45 108 H 24 12/15/19 08:30 146 H 24 12/15/19 08:15 130 H 24 12/15/19 08:00 98.0 F 133 H 24 12/15/19 07:45 138 H 24 12/15/19 07:30 135 H 24 12/15/19 07:15 131 H 24 12/15/19 07:00 146 H 24 99/58 12/15/19 06:45 122 H 24 85/46 12/15/19 06:30 130 H 24 12/15/19 06:15 142 H 24 85/46 12/15/19 06:00 98.1 F 138 H 24 12/15/19 05:45 128 H 24 12/15/19 05:30 125 H 24 12/15/19 05:15 135 H 24 12/15/19 05:00 98.6 F 118 H 24 12/15/19 04:45 126 H 24 66/43 12/15/19 04:30 137 H 24 12/15/19 04:15 137 H 19 12/15/19 04:00 98.6 F 128 H 24 12/15/19 03:45 129 H 23 12/15/19 03:30 126 H 24 12/15/19 03:15 125 H 25 H 12/15/19 03:00 98.8 F 129 H 24 12/15/19 02:45 105 H 25 H 12/15/19 02:30 140 H 24 12/15/19 02:15 141 H 24 12/15/19 02:00 126 H 24 12/15/19 01:45 138 H 24 12/15/19 01:30 120 H 24 12/15/19 01:15 115 H 24 12/15/19 01:00 130 H 24 12/15/19 00:45 120 H 24 12/15/19 00:30 123 H 24 12/15/19 00:15 129 H 24 12/15/19 00:00 98.8 F 121 H 24 12/14/19 23:45 112 H 24 12/14/19 23:30 120 H 24 12/14/19 23:15 111 H 24 12/14/19 23:11 106 H 24 12/14/19 23:00 98.2 F 107 H 24 12/14/19 22:45 98 24 12/14/19 22:30 100 24 12/14/19 22:15 113 H 24 12/14/19 22:00 96.8 F L 86 19 12/14/19 21:45 90 11 L 12/14/19 21:30 91 8 L 12/14/19 21:15 87 11 L 12/14/19 21:00 96.3 F L 78 14 12/14/19 20:45 82 24 12/14/19 20:30 93 24 12/14/19 20:15 85 16 12/14/19 20:00 95.4 F L 87 19 12/14/19 19:45 86 16 12/14/19 19:30 95 6 L 12/14/19 19:15 85 19 12/14/19 19:00 93.7 F L 90 24 12/14/19 18:45 93.6 F L 101 H 24 12/14/19 18:30 93.2 F L 85 24 12/14/19 18:15 93.0 F L 80 24 12/14/19 18:00 91.4 F L 85 24 12/14/19 17:45 24 12/14/19 17:30 99 24 12/14/19 17:20 99 19 12/14/19 17:17 92.8 F L 103 H 18 12/14/19 16:55 91.0 F L 14 99/41 12/14/19 14:20 93.1 F L 94/35 12/14/19 10:45 63 96 18 99/66 12/14/19 10:00 96 18 149/80 Pulse Ox 12/15/19 08:45 96 12/15/19 08:30 99 12/15/19 08:15 100 12/15/19 08:00 99 12/15/19 07:45 100 12/15/19 07:30 99 12/15/19 07:15 99 12/15/19 07:00 100 12/15/19 06:45 99 12/15/19 06:30 98 12/15/19 06:15 97 12/15/19 06:00 98 12/15/19 05:45 99 12/15/19 05:30 98 12/15/19 05:15 98 12/15/19 05:00 97 12/15/19 04:45 96 12/15/19 04:30 97 12/15/19 04:15 96 12/15/19 04:00 97 12/15/19 03:45 97 12/15/19 03:30 97 12/15/19 03:15 98 12/15/19 03:00 98 12/15/19 02:45 97 12/15/19 02:30 97 12/15/19 02:15 96 12/15/19 02:00 97 12/15/19 01:45 97 12/15/19 01:30 98 12/15/19 01:15 97 12/15/19 01:00 97 12/15/19 00:45 95 12/15/19 00:30 97 12/15/19 00:15 97 12/15/19 00:00 98 12/14/19 23:45 98 12/14/19 23:30 98 12/14/19 23:15 98 12/14/19 23:11 97 12/14/19 23:00 98 12/14/19 22:45 95 12/14/19 22:30 89 L 12/14/19 22:15 87 L 12/14/19 22:00 87 L 12/14/19 21:45 86 L 12/14/19 21:30 87 L 12/14/19 21:15 87 L 12/14/19 21:00 89 L 12/14/19 20:45 90 L 12/14/19 20:30 91 L 12/14/19 20:15 91 L 12/14/19 20:00 88 L 12/14/19 19:45 89 L 12/14/19 19:30 91 L 12/14/19 19:15 91 L 12/14/19 19:00 92 L 12/14/19 18:45 78 L 12/14/19 18:30 90 L 12/14/19 18:15 91 L 12/14/19 18:00 97 12/14/19 17:45 92 L 12/14/19 17:30 96 12/14/19 17:20 12/14/19 17:17 98 12/14/19 16:55 92 L 12/14/19 14:20 12/14/19 10:45 12/14/19 10:00 97 Intake and Output 12/14/19 12/15/19 12/15/19 22:59 06:59 14:59 Intake Total 1666.064 66.996 364.754 Output Total 1090 294 16 Balance 576.064 -227.004 348.754 Intake: IV 18 24 231 0.9 flush 18 24 3 Dextrose 5% in Water 1, 150 000 ml @ 75 mls/hr IV . [id number] TONY with Sodium Bicarb (1 Meq/ml) 150 ml Rx#:[id number] Dextrose 5%-0.45% NaCl 1, 75 000 ml @ 75 mls/hr IV . [id number] TONY Rx#:[id number] Pressure Bags 3 Intake, IV Titration 1648.064 42.996 133.754 Amount Dextrose 5% in Water 1, 300 000 ml @ 75 mls/hr IV . [id number] TONY with Sodium Bicarb (1 Meq/ml) 150 ml Rx#:[id number] Dextrose 5%-0.45% NaCl 1, 225 000 ml @ 75 mls/hr IV . [id number] TONY Rx#:[id number] Diltiazem 125 mg In 2.5 Sodium Chloride 0.9% 100 ml @ Per Protocol IV .Q0M TONY Rx#:[id number] Lactated Ringers 1,000 ml 1000 @ 999 mls/hr IV .Q1H1M ONE Rx#:[id number] Meropenem 1 gm In Sodium 100 Chloride 0.9% 100 ml @ 33 .333 mls/hr IVPB Q12HR TONY Rx#:[id number] Norepinephrine 32 mg In 18.474 0.168 31.254 Sodium Chloride 0.9% 218 ml @ 0.05 MCG/KG/MIN 1. 512 mls/hr IV .Q24H TONY Rx#:[id number] Sodium Chloride 0.9% 150 4.59 ml @ 0.03 UNITS/MIN 4.59 mls/hr IV .Q24H TONY with Vasopressin 60 unit Rx#: [id number] propofoL 1,000 mg In 42.828 100 Empty Bag 1 bag @ Titrate IV .Q0M [facility] Rx#: [id number] Output: Gastric Drainage 1050 200 Urine 40 94 16 Other: Voiding Method Indwelling Catheter Indwelling Catheter # Voids 0 Weight 70 kg ABP, PAP, CO, CI - Last 8 Hours Arterial Blood Pressure 90/44 Arterial Blood Pressure 147/63 Arterial Blood Pressure 127/59 Arterial Blood Pressure 143/60 Arterial Blood Pressure 143/61 Arterial Blood Pressure 131/60 Arterial Blood Pressure 121/50 Arterial Blood Pressure 121/53 Arterial Blood Pressure 110/51 Arterial Blood Pressure 111/52 Arterial Blood Pressure 119/57 Arterial Blood Pressure 123/59 Arterial Blood Pressure 123/56 Arterial Blood Pressure 134/59 Arterial Blood Pressure 121/55 Arterial Blood Pressure 109/53 Arterial Blood Pressure 113/54 Arterial Blood Pressure 109/57 Arterial Blood Pressure 133/61 Arterial Blood Pressure 122/60 Arterial Blood Pressure 109/52 Arterial Blood Pressure 129/55 Arterial Blood Pressure 123/57 Arterial Blood Pressure 125/57 Arterial Blood Pressure 107/51 Arterial Blood Pressure 111/50 Arterial Blood Pressure 128/55 Arterial Blood Pressure 132/56 Arterial Blood Pressure 126/56 Results 12/15/19 04:45 12/15/19 04:45 Cardiac Enzymes 12/14/19 12/15/19 Range/Units 23:00 04:45 AST 5581 H 8644 H (14-36) U/L Coagulation 12/14/19 12/14/19 12/15/19 Range/Units 16:46 23:00 04:45 PT 28.9 H 33.5 H 35.1 H (9.0-12.0) sec APTT 35.4 H (22.0-30.0) sec Lipids 12/15/19 Range/Units 04:45 Triglycerides 238 H (<150) mg/dL Cholesterol 62 (<200) mg/dL HDL Cholesterol 19 L (40-60) mg/dL CBC 12/14/19 12/14/19 12/14/19 Range/Units 08:53 16:46 23:00 WBC 15.8 H 23.0 H 16.2 H (3.8-10.6) k/uL RBC 4.93 4.35 4.09 (3.80-5.40) m/uL Hgb 14.6 13.0 12.4 (11.4-16.0) gm/dL Hct 49.2 H 44.2 39.8 (34.0-46.0) % Plt Count 212 176 163 (150-450) k/uL 12/15/19 Range/Units 04:45 WBC 15.4 H (3.8-10.6) k/uL RBC 4.45 (3.80-5.40) m/uL Hgb 13.2 (11.4-16.0) gm/dL Hct 42.4 (34.0-46.0) % Plt Count 146 L (150-450) k/uL Comprehensive Metabolic Panel 12/14/19 12/14/19 12/14/19 Range/Units 12:27 16:46 23:00 Sodium 134 L 134 L 137 (137-145) mmol/L Potassium 5.1 5.0 4.9 (3.5-5.1) mmol/L Chloride 97 L 99 95 L (98-107) mmol/L Carbon Dioxide 19 L 18 L 23 (22-30) mmol/L BUN 27 H 25 H 25 H (7-17) mg/dL Creatinine 1.36 H 1.44 H 1.45 H (0.52-1.04) mg/dL Glucose 174 H 119 H 154 H (74-99) mg/dL Calcium 9.2 8.6 8.0 L (8.4-10.2) mg/dL AST 5581 H (14-36) U/L ALT 1909 H (4-34) U/L Alkaline Phosphatase 118 (38-126) U/L Total Protein 4.0 L (6.3-8.2) g/dL Albumin 2.1 L (3.5-5.0) g/dL 12/15/19 Range/Units 04:45 Sodium 135 L (137-145) mmol/L Potassium 4.9 (3.5-5.1) mmol/L Chloride 93 L (98-107) mmol/L Carbon Dioxide 25 (22-30) mmol/L BUN 27 H (7-17) mg/dL Creatinine 1.50 H (0.52-1.04) mg/dL Glucose 176 H (74-99) mg/dL Calcium 7.9 L (8.4-10.2) mg/dL AST 8644 H (14-36) U/L ALT 3023 H (4-34) U/L Alkaline Phosphatase 138 H (38-126) U/L Total Protein 4.3 L (6.3-8.2) g/dL Albumin 2.2 L (3.5-5.0) g/dL Current Medications Generic Name Dose Route Start Last Admin Trade Name Freq PRN Reason Stop Dose Admin Chlorhexidine Gluconate 15 ml 12/14/19 21:00 12/14/19 21:30 Chlorhexidine Gluconate 15 Ml Cup MUCOUS MEM 15 ml BID TONY Administration Hydrocortisone Sodium Succinate 100 mg 12/15/19 00:00 12/15/19 06:24 Hydrocortisone Succinate 100 Mg/2 Ml Vial IV 100 mg Q6HR TONY Administration Propofol 1,000 mg/ IV Solution 100 mls @ 0 mls/hr 12/14/19 17:00 12/15/19 09:34 IV 30 mcg/kg/min .Q0M TONY 11.61 mls/hr Administration Protocol Titrate Dextrose/Sodium Chloride 1,000 mls @ 75 mls/hr 12/14/19 17:30 12/15/19 08:19 Dextrose 5%-1/2ns Iv Soln IV 75 mls/hr .[id number] TONY Administration Norepinephrine Bitartrate 32 250 mls @ 1.512 mls/hr 12/14/19 17:30 12/15/19 08:51 mg/ Sodium Chloride IV 0.19 mcg/kg/min .Q24H TONY 5.745 mls/hr Titration Protocol 0.05 MCG/KG/MIN Vasopressin 60 unit/ Sodium 153 mls @ 4.59 mls/hr 12/14/19 18:15 12/14/19 22:03 Chloride IV 4 mls/hr .Q24H TONY Administration 0.03 UNITS/MIN Sodium Bicarbonate 150 ml/ 1,150 mls @ 75 mls/hr 12/14/19 18:15 12/15/19 08:57 Dextrose/Water IV 75 mls/hr .[id number] TONY Administration Meropenem 1 gm/ Sodium 100 mls @ 33.333 mls/hr 12/15/19 09:00 Chloride IVPB Q12HR TONY Diltiazem HCl 125 mg/ Sodium 125 mls @ 0 mls/hr 12/15/19 07:45 12/15/19 08:52 Chloride IV 5 mg/hr .Q0M TONY 5 mls/hr Titration Protocol Per Protocol Naloxone HCl 0.2 mg 12/13/19 11:51 Naloxone 0.4 Mg/Ml 1 Ml Vial IV Q2M PRN Opioid Reversal Ondansetron HCl 4 mg 12/13/19 11:51 12/13/19 21:51 Ondansetron 4 Mg/2 Ml Vial IVP 4 mg Q6HR PRN Administration Nausea And Vomiting Pantoprazole Sodium 40 mg 12/14/19 21:00 12/14/19 21:27 Pantoprazole 40 Mg/10 Ml Vial IVP 40 mg BID TONY Administration Intake and Output 12/14/19 12/15/19 12/15/19 22:59 06:59 14:59 Intake Total 1666.064 66.996 364.754 Output Total 1090 294 16 Balance 576.064 -227.004 348.754 Intake: IV 18 24 231 0.9 flush 18 24 3 Dextrose 5% in Water 1, 150 000 ml @ 75 mls/hr IV . [id number] TONY with Sodium Bicarb (1 Meq/ml) 150 ml Rx#:[id number] Dextrose 5%-0.45% NaCl 1, 75 000 ml @ 75 mls/hr IV . [id number] TON[facility] Rx#:[id number] Pressure Bags 3 Intake, IV Titration 1648.064 42.996 133.754 Amount Dextrose 5% in Water 1, 300 000 ml @ 75 mls/hr IV . [id number] TONY with Sodium Bicarb (1 Meq/ml) 150 ml Rx#:[id number] Dextrose 5%-0.45% NaCl 1, 225 000 ml @ 75 mls/hr IV . [id number] TON[facility] Rx#:[id number] Diltiazem 125 mg In 2.5 Sodium Chloride 0.9% 100 ml @ Per Protocol IV .Q0M [facility]ON[facility] Rx#:[id number] Lactated Ringers 1,000 ml 1000 @ 999 mls/hr IV .Q1H1M ONE Rx#:[id number] Meropenem 1 gm In Sodium 100 Chloride 0.9% 100 ml @ 33 .333 mls/hr IVPB Q12HR [facility] Rx#:[id number] Norepinephrine 32 mg In 18.474 0.168 31.254 Sodium Chloride 0.9% 218 ml @ 0.05 MCG/KG/MIN 1. 512 mls/hr IV .Q24H [facility]ON[facility] Rx#:[id number] Sodium Chloride 0.9% 150 4.59 ml @ 0.03 UNITS/MIN 4.59 mls/hr IV .Q24H [facility]ONY with Vasopressin 60 unit Rx#: [id number] propofoL 1,000 mg In 42.828 100 Empty Bag 1 bag @ Titrate IV .Q0M [facility]ON[facility] Rx#: [id number] Output: Gastric Drainage 1050 200 Urine 40 94 16 Other: Voiding Method Indwelling Catheter Indwelling Catheter # Voids 0 Weight 70 kg 12/15/19 04:45 12/15/19 04:45
--- NOTE | 2019-12-15 13:52 | P.PN ---
Subjective Progress Note Date: 12/15/19 Principal diagnosis: Acute hypotension, rule out shock related to adrenal insufficiency, rule out ischemic bowel with lactic acidosis 84-year-old white female patient of Dr. Freed, who came in on 12/13/2019 for left thyroidectomy for history of large left thyroid nodule measuring 4 cm. The thyroid nodule was causing some compressive symptoms. the nodule was discovered during workup for abnormal thyroid labs in May. Patient had the new onset atrial fibrillation in August 2019. Patient had a thyroid uptake scan, thyroid ultrasound, and thyroid biopsy which was benign. 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 patient was admitted to medical surgical floor following her procedure, today is postoperative day 1, and early in the morning "stroke was called for symptoms of left arm weakness, patient was also hypoglycemic, she was given an amp of 50% dextrose. Brain CT without contrast revealed atrophy with chronic appearing periventricular and deep white matter ischemic type changes.angiography CT showed bilateral internal carotid artery origins were narrowing greater than 70%, and a 1.7 cm nodule adjacent to moderate right pleural effusion within the right upper lung field. on today's labs her white count is elevated at 15.3, patient had evidence of acute kidney injury, with a rising creatinine, potassium of 5.8, and evidence of significantly abnormal LFTs, with acute rise from previous labs earlier in the day. AST was up to 736, ALT was 307, alkaline phosphatase was 145. it is unclear whether the patient was experiencing hyp otension during the case or during the recovery period. Nevertheless throughout the day today her mentation had worsened, her blood pressures a very marginal, patient developed hypothermia with a temp of 93F rectally, she is receiving IV hydration with D5 half-normal saline at a rate of 125 an hour, patient is poorly responsive on today's exam, we were asked to see the patient initially for eval uation of large right-sided pleural effusion seen on CT of abdomen and pelvis obtained for the reason of abdominal pain. There was extensive vascular calcification within the aorta at the level of the diaphragm, there was vascular calcifications within the bilateral kidneys, small amount of free fluid within the pelvis, and small amount of air within the right atrium. During her evaluation and from the discussion with the attending physician it is clear that patient has deteriorated significantly on her postoperative day 1, is a concern for acute adrenal crisis in view of the surgery. She has significant and multiple lab abnormalities, level of consciousness is poor, we will obtain a stat blood gas, we will obtain a barium in the intensive care unit, and discussed the plan with the attending physician in the family were agreeable. On 12/15/2019 patient seen in follow-up in the intensive care unit. Yesterday patient was emergently transferred to the intensive care for deteriorating clinical status, acute hypotension requiring fluid resuscitation, and vasopressor support, patient was emergently intubated and placed on mechanical ventilation. Patient's anticoagulation had to be placed on hold in view of significant blood-tinged output from the NG tube, and there was concern for a GI bleeding. However her hemoglobin did not drop significantly from her baseline, and is at 13.2 on today's labs, white blood cell count 15.4, INR is 3.6, renal profile is relatively stable, BUN 27 and creatinine is 1.5, lactic acid remained elevated despite the fluid resuscitation, and remains at 12.3 on today's labs. Liver enzymes continued to trend up, and AST is 8644, ALT is 3023, and alk phos is 138, total bilirubin is 2.9, triglycerides of 238. Patient's random cortisol levels came back at greater than 123 however this was obtained after the stress doses of hydrocortisone. Liver ultrasound revealed common bile duct dilation of 12 mm, no cholelithiasis, findings may represent choledocholithiasis or stricture, with the recommendation for MRCP. He did not heterogeneous and diff usely hyperechoic liver findings likely representing diffuse hepatocellular process such as hepatitis and mild right renal atrophy. Patient remains on mechanical ventilator, current vent settings assist control mode of ventilation with a rate of 16, tidal vital 350, FiO2 of 60%, and PEEP of 5, this morning his blood gases showed pO2 of 99, pCO2 38, and pH of 7.46. Patient is on maintenance IV fluids with D5 half-normal saline at a rate of 75 ML per hour, bicarbonate infusion at 150 ML per hour, patient came, tachycardic, she remains in atrial fibrillation, Cardizem drip was added currently infusing at a rate of 10 mg per hour by cardiology, patient remains off anticoagulation, admitted fact patient's INR today is 3.6, she will receive 10 mg of vitamin K, and 2 units of fresh frozen plasma. Patient is receiving sedation and informed department and currently at 30 mics per kilo per minute. Today's chest x-ray shows pulmonary interstitial edema mildly decreased compared to yesterday's exam, and unchanged bilateral pleural effusions. Nephrology has been consulted [facility], and patient's urine output has been in the order of 5-10 ML per hour. Gastric drainage in the last 24 hours was in the order of 1.2 L of blood-tinged gastric output and anticoagulation will remain on hold right now. Pancultures will be sent, patient was started on empiric antibiotics in the form of meropenem. In view of the severe lactic acidosis there is a suspicion for ischemic bowel. Echocardiogram has been reviewed showing severe global hypokinesis of the LV, moderate concentric LVH, severely impaired left ventricular systolic function with an EF between 20-25%, severe mitral reg urgitation, severe tricuspid regurgitation, mild to moderate pulmonary hypertension, with PA pressure of 49 mmHg. Objective - Vital Signs Vital signs: Vital Signs Temp 98.0 F 12/15/19 08:00 Pulse 122 H 12/15/19 11:15 Resp 24 12/15/19 11:15 BP 99/58 12/15/19 07:00 Pulse Ox 98 12/15/19 11:15 Intake & Output 12/14/19 12/15/19 12/15/19 18:59 06:59 18:59 Intake Total 1307.401 425.659 990.386 Output Total 1060 324 31 Balance 247.401 101.659 959.386 Weight 70 kg Intake: IV 6 36 840 0.9 flush 6 36 3 Dextrose 5% in Water 1, 375 000 ml @ 75 mls/hr IV . [id number] TONY with Sodium Bicarb (1 Meq/ml) 150 ml Rx#:[id number] Dextrose 5%-0.45% NaCl 1, 300 000 ml @ 75 mls/hr IV . [id number] TONY Rx#:[id number] Meropenem 1 gm In Sodium 100 Chloride 0.9% 100 ml @ 200 mls/hr IVPB ONCE ONE Rx#:[id number] Phytonadione 10 mg In 50 Sodium Chloride 0.9% 50 ml @ 100 mls/hr IVPB ONCE STA Rx#:[id number] Pressure Bags 12 Intake, IV Titration 1301.401 389.659 150.386 Amount Dextrose 5% in Water 1, 150 150 000 ml @ 75 mls/hr IV . [id number] TONY with Sodium Bicarb (1 Meq/ml) 150 ml Rx#:[id number] Dextrose 5%-0.45% NaCl 1, 150 75 000 ml @ 75 mls/hr IV . [id number] TONY Rx#:[id number] Diltiazem 125 mg In 7.667 Sodium Chloride 0.9% 100 ml @ Per Protocol IV .Q0M TONY Rx#:[id number] Lactated Ringers 1,000 ml 1000 @ 999 mls/hr IV .Q1H1M ONE Rx#:[id number] Meropenem 1 gm In Sodium 100 Chloride 0.9% 100 ml @ 33 .333 mls/hr IVPB Q12HR TONY Rx#:[id number] Norepinephrine 32 mg In 1.401 17.241 37.301 Sodium Chloride 0.9% 218 ml @ 0.05 MCG/KG/MIN 1. 512 mls/hr IV .Q24H TONY Rx#:[id number] Sodium Chloride 0.9% 150 4.59 ml @ 0.03 UNITS/MIN 4.59 mls/hr IV .Q24H TONY with Vasopressin 60 unit Rx#: [id number] propofoL 1,000 mg In 42.828 105.418 Empty Bag 1 bag @ Titrate IV .Q0M TONY Rx#: [id number] Output: Gastric Drainage 1050 200 Urine 10 124 31 Other: Voiding Method Indwelling Catheter Indwelling Catheter Indwelling Catheter # Voids 0 ABP, PAP, CO, CI - Last Documented Arterial Blood Pressure 106/55 - Exam GENERAL EXAM: Intubated, sedated, 84-year-old white female an assist-control mode of ventilation HEAD: Normocephalic/atraumatic. EYES: Normal reaction of pupils, equal size. Conjunctiva pink, sclera white. NOSE: Clear with pink turbinates. MOUTH: ET tube in place, OG tube in place, OG to low intermittent suction, with the large amount of blood-tinged output THROAT: No erythema or exudates. NECK: No masses, no JVD, no thyroid enlargement, no adenopathy. Anterior neck surgical incision, clean dry and intact CHEST: No chest wall deformity. Symmetrical expansion. LUNGS: Equal air entry with no crackles, wheeze, rhonchi or dullness. CVS: Regular rate and rhythm, normal S1 and S2, no gallops, no murmurs, no rubs ABDOMEN: Soft, nontender. No hepatosplenomegaly, normal bowel sounds, no guarding or rigidity. EXTREMITIES: No clubbing, no edema, no cyanosis, 2+ pulses and upper and lower extremities. MUSCULOSKELETAL: Muscle strength and tone normal. SPINE: No scoliosis or deformity SKIN: No rashes CENTRAL NERVOUS SYSTEM: Sedated, intubated. No focal deficits, tone is normal in all 4 extremities. - Labs CBC & Chem 7: 12/15/19 04:45 12/15/19 04:45 Labs: Abnormal Lab Results - Last 24 Hours (Table) 12/14/19 12/14/19 12/14/19 Range/Units 14:30 15:19 15:19 WBC (3.8-10.6) k/uL MCV (80.0-100.0) fL MCHC (31.0-37.0) g/dL Plt Count (150-450) k/uL PT (9.0-12.0) sec INR (<1.2) APTT (22.0-30.0) sec ABG pH (7.35-7.45) ABG pCO2 (35-45) mmHg ABG pO2 (83-108) mmHg ABG HCO3 (21-25) mmol/L ABG Total CO2 (19-24) mmol/L ABG O2 Saturation (94-97) % Sodium (137-145) mmol/L Chloride (98-107) mmol/L Carbon Dioxide (22-30) mmol/L BUN (7-17) mg/dL Creatinine (0.52-1.04) mg/dL Glucose (74-99) mg/dL POC Glucose (mg/dL) 125 H (75-99) mg/dL Hemoglobin A1c 6.1 H (4.0-6.0) % Plasma Lactic Acid Myles (0.7-2.0) mmol/L Calcium (8.4-10.2) mg/dL Phosphorus (2.5-4.5) mg/dL Total Bilirubin (0.2-1.3) mg/dL AST (14-36) U/L ALT (4-34) U/L Alkaline Phosphatase (38-126) U/L Total Protein (6.3-8.2) g/dL Albumin (3.5-5.0) g/dL Triglycerides (<150) mg/dL HDL Cholesterol (40-60) mg/dL Vitamin B12 1532.0 H (200.0-944.0) pg/mL TSH (0.465-4.680) mIU/L Free T4 (0.78-2.19) ng/dL ACTH (0.00-45.99) pg/mL 12/14/19 12/14/19 12/14/19 Range/Units 15:19 15:35 16:46 WBC (3.8-10.6) k/uL MCV (80.0-100.0) fL MCHC (31.0-37.0) g/dL Plt Count (150-450) k/uL PT 28.9 H (9.0-12.0) sec INR 3.0 H (<1.2) APTT 35.4 H (22.0-30.0) sec ABG pH (7.35-7.45) ABG pCO2 (35-45) mmHg ABG pO2 (83-108) mmHg ABG HCO3 (21-25) mmol/L ABG Total CO2 (19-24) mmol/L ABG O2 Saturation (94-97) % Sodium (137-145) mmol/L Chloride (98-107) mmol/L Carbon Dioxide (22-30) mmol/L BUN (7-17) mg/dL Creatinine (0.52-1.04) mg/dL Glucose (74-99) mg/dL POC Glucose (mg/dL) 108 H (75-99) mg/dL Hemoglobin A1c (4.0-6.0) % Plasma Lactic Acid Myles (0.7-2.0) mmol/L Calcium (8.4-10.2) mg/dL Phosphorus (2.5-4.5) mg/dL Total Bilirubin (0.2-1.3) mg/dL AST (14-36) U/L ALT (4-34) U/L Alkaline Phosphatase (38-126) U/L Total Protein (6.3-8.2) g/dL Albumin (3.5-5.0) g/dL Triglycerides (<150) mg/dL HDL Cholesterol (40-60) mg/dL Vitamin B12 (200.0-944.0) pg/mL TSH (0.465-4.680) mIU/L Free T4 (0.78-2.19) ng/dL ACTH 267.00 H (0.00-45.99) pg/mL 12/14/19 12/14/19 12/14/19 Range/Units 16:46 16:46 16:46 WBC 23.0 H (3.8-10.6) k/uL MCV 101.7 H (80.0-100.0) fL MCHC 29.3 L (31.0-37.0) g/dL Plt Count (150-450) k/uL PT (9.0-12.0) sec INR (<1.2) APTT (22.0-30.0) sec ABG pH (7.35-7.45) ABG pCO2 (35-45) mmHg ABG pO2 (83-108) mmHg ABG HCO3 (21-25) mmol/L ABG Total CO2 (19-24) mmol/L ABG O2 Saturation (94-97) % Sodium 134 L (137-145) mmol/L Chloride (98-107) mmol/L Carbon Dioxide 18 L (22-30) mmol/L BUN 25 H (7-17) mg/dL Creatinine 1.44 H (0.52-1.04) mg/dL Glucose 119 H (74-99) mg/dL POC Glucose (mg/dL) (75-99) mg/dL Hemoglobin A1c (4.0-6.0) % Plasma Lactic Acid Myles 13.2 H* (0.7-2.0) mmol/L Calcium (8.4-10.2) mg/dL Phosphorus (2.5-4.5) mg/dL Total Bilirubin (0.2-1.3) mg/dL AST (14-36) U/L ALT (4-34) U/L Alkaline Phosphatase (38-126) U/L Total Protein (6.3-8.2) g/dL Albumin (3.5-5.0) g/dL Triglycerides (<150) mg/dL HDL Cholesterol (40-60) mg/dL Vitamin B12 (200.0-944.0) pg/mL TSH (0.465-4.680) mIU/L Free T4 (0.78-2.19) ng/dL ACTH (0.00-45.99) pg/mL 12/14/19 12/14/19 12/14/19 Range/Units 16:58 17:09 18:44 WBC (3.8-10.6) k/uL MCV (80.0-100.0) fL MCHC (31.0-37.0) g/dL Plt Count (150-450) k/uL PT (9.0-12.0) sec INR (<1.2) APTT (22.0-30.0) sec ABG pH 7.05 L* 7.28 L (7.35-7.45) ABG pCO2 54 H 49 H (35-45) mmHg ABG pO2 291 H 72 L (83-108) mmHg ABG HCO3 15 L (21-25) mmol/L ABG Total CO2 17 L 25 H (19-24) mmol/L ABG O2 Saturation 100.0 H 93.9 L (94-97) % Sodium (137-145) mmol/L Chloride (98-107) mmol/L Carbon Dioxide (22-30) mmol/L BUN (7-17) mg/dL Creatinine (0.52-1.04) mg/dL Glucose (74-99) mg/dL POC Glucose (mg/dL) 115 H (75-99) mg/dL Hemoglobin A1c (4.0-6.0) % Plasma Lactic Acid Myles (0.7-2.0) mmol/L Calcium (8.4-10.2) mg/dL Phosphorus (2.5-4.5) mg/dL Total Bilirubin (0.2-1.3) mg/dL AST (14-36) U/L ALT (4-34) U/L Alkaline Phosphatase (38-126) U/L Total Protein (6.3-8.2) g/dL Albumin (3.5-5.0) g/dL Triglycerides (<150) mg/dL HDL Cholesterol (40-60) mg/dL Vitamin B12 (200.0-944.0) pg/mL TSH (0.465-4.680) mIU/L Free T4 (0.78-2.19) ng/dL ACTH (0.00-45.99) pg/mL 12/14/19 12/14/19 12/14/19 Range/Units 20:43 23:00 23:00 WBC 16.2 H (3.8-10.6) k/uL MCV (80.0-100.0) fL MCHC (31.0-37.0) g/dL Plt Count (150-450) k/uL PT 33.5 H (9.0-12.0) sec INR 3.4 H (<1.2) APTT (22.0-30.0) sec ABG pH (7.35-7.45) ABG pCO2 (35-45) mmHg ABG pO2 (83-108) mmHg ABG HCO3 (21-25) mmol/L ABG Total CO2 (19-24) mmol/L ABG O2 Saturation (94-97) % Sodium (137-145) mmol/L Chloride (98-107) mmol/L Carbon Dioxide (22-30) mmol/L BUN (7-17) mg/dL Creatinine (0.52-1.04) mg/dL Glucose (74-99) mg/dL POC Glucose (mg/dL) (75-99) mg/dL Hemoglobin A1c (4.0-6.0) % Plasma Lactic Acid Myles 16.5 H* (0.7-2.0) mmol/L Calcium (8.4-10.2) mg/dL Phosphorus (2.5-4.5) mg/dL Total Bilirubin (0.2-1.3) mg/dL AST (14-36) U/L ALT (4-34) U/L Alkaline Phosphatase (38-126) U/L Total Protein (6.3-8.2) g/dL Albumin (3.5-5.0) g/dL Triglycerides (<150) mg/dL HDL Cholesterol (40-60) mg/dL Vitamin B12 (200.0-944.0) pg/mL TSH (0.465-4.680) mIU/L Free T4 (0.78-2.19) ng/dL ACTH (0.00-45.99) pg/mL 12/14/19 12/15/19 12/15/19 Range/Units 23:00 00:40 02:40 WBC (3.8-10.6) k/uL MCV (80.0-100.0) fL MCHC (31.0-37.0) g/dL Plt Count (150-450) k/uL PT (9.0-12.0) sec INR (<1.2) APTT (22.0-30.0) sec ABG pH (7.35-7.45) ABG pCO2 (35-45) mmHg ABG pO2 (83-108) mmHg ABG HCO3 (21-25) mmol/L ABG Total CO2 (19-24) mmol/L ABG O2 Saturation (94-97) % Sodium (137-145) mmol/L Chloride 95 L (98-107) mmol/L Carbon Dioxide (22-30) mmol/L BUN 25 H (7-17) mg/dL Creatinine 1.45 H (0.52-1.04) mg/dL Glucose 154 H (74-99) mg/dL POC Glucose (mg/dL) (75-99) mg/dL Hemoglobin A1c (4.0-6.0) % Plasma Lactic Acid Myles 15.9 H* 14.9 H* (0.7-2.0) mmol/L Calcium 8.0 L (8.4-10.2) mg/dL Phosphorus (2.5-4.5) mg/dL Total Bilirubin 2.4 H (0.2-1.3) mg/dL AST 5581 H (14-36) U/L ALT 1909 H (4-34) U/L Alkaline Phosphatase (38-126) U/L Total Protein 4.0 L (6.3-8.2) g/dL Albumin 2.1 L (3.5-5.0) g/dL Triglycerides (<150) mg/dL HDL Cholesterol (40-60) mg/dL Vitamin B12 (200.0-944.0) pg/mL TSH 0.055 L (0.465-4.680) mIU/L Free T4 4.87 H (0.78-2.19) ng/dL ACTH (0.00-45.99) pg/mL 12/15/19 12/15/19 12/15/19 Range/Units 04:45 04:45 04:45 WBC 15.4 H (3.8-10.6) k/uL MCV (80.0-100.0) fL MCHC (31.0-37.0) g/dL Plt Count 146 L (150-450) k/uL PT 35.1 H (9.0-12.0) sec INR 3.6 H (<1.2) APTT (22.0-30.0) sec ABG pH (7.35-7.45) ABG pCO2 (35-45) mmHg ABG pO2 (83-108) mmHg ABG HCO3 (21-25) mmol/L ABG Total CO2 (19-24) mmol/L ABG O2 Saturation (94-97) % Sodium 135 L (137-145) mmol/L Chloride 93 L (98-107) mmol/L Carbon Dioxide (22-30) mmol/L BUN 27 H (7-17) mg/dL Creatinine 1.50 H (0.52-1.04) mg/dL Glucose 176 H (74-99) mg/dL POC Glucose (mg/dL) (75-99) mg/dL Hemoglobin A1c (4.0-6.0) % Plasma Lactic Acid Myles (0.7-2.0) mmol/L Calcium 7.9 L (8.4-10.2) mg/dL Phosphorus 5.3 H (2.5-4.5) mg/dL Total Bilirubin 2.9 H (0.2-1.3) mg/dL AST 8644 H (14-36) U/L ALT 3023 H (4-34) U/L Alkaline Phosphatase 138 H (38-126) U/L Total Protein 4.3 L (6.3-8.2) g/dL Albumin 2.2 L (3.5-5.0) g/dL Triglycerides 238 H (<150) mg/dL HDL Cholesterol 19 L (40-60) mg/dL Vitamin B12 (200.0-944.0) pg/mL TSH (0.465-4.680) mIU/L Free T4 (0.78-2.19) ng/dL ACTH (0.00-45.99) pg/mL 12/15/19 12/15/19 12/15/19 Range/Units 04:45 07:42 09:45 WBC (3.8-10.6) k/uL MCV (80.0-100.0) fL MCHC (31.0-37.0) g/dL Plt Count (150-450) k/uL PT (9.0-12.0) sec INR (<1.2) APTT (22.0-30.0) sec ABG pH 7.46 H (7.35-7.45) ABG pCO2 (35-45) mmHg ABG pO2 (83-108) mmHg ABG HCO3 27 H (21-25) mmol/L ABG Total CO2 28 H (19-24) mmol/L ABG O2 Saturation 98.3 H (94-97) % Sodium (137-145) mmol/L Chloride (98-107) mmol/L Carbon Dioxide (22-30) mmol/L BUN (7-17) mg/dL Creatinine (0.52-1.04) mg/dL Glucose (74-99) mg/dL POC Glucose (mg/dL) (75-99) mg/dL Hemoglobin A1c (4.0-6.0) % Plasma Lactic Acid Myles 13.8 H* 12.3 H* (0.7-2.0) mmol/L Calcium (8.4-10.2) mg/dL Phosphorus (2.5-4.5) mg/dL Total Bilirubin (0.2-1.3) mg/dL AST (14-36) U/L ALT (4-34) U/L Alkaline Phosphatase (38-126) U/L Total Protein (6.3-8.2) g/dL Albumin (3.5-5.0) g/dL Triglycerides (<150) mg/dL HDL Cholesterol (40-60) mg/dL Vitamin B12 (200.0-944.0) pg/mL TSH (0.465-4.680) mIU/L Free T4 (0.78-2.19) ng/dL ACTH (0.00-45.99) pg/mL Assessment and Plan Plan: Assessment: #1. Acute hypotension and hypothermia, suspect shock related to acute adrenal crisis, following surgery for removal of left thyroid nodule, consider possibility of ischemic bowel. Possibility of septic shock is considered however seems to be less likely #2. Severe lactic acidosis, suspect possibility of ischemic bowel, persistent despite the fluid resuscitation #3. Acute kidney injury and acute elevation of the transaminases possibly related to the adrenal crisis and hypotension #4. Left thyroid nodule with the biopsy with benign findings, causing compressive symptoms, status post thyroidectomy, postoperative day 2 #5. Multiorgan failure related to shock, and possibility of ischemic bowel #6. Increased blood-tinged output from the NG tube, possibly related to gastritis, anticoagulation remains on hold #7. Severely impaired left ventricular systolic function, cardiomyopathy, with EF of 20-25%, moderately severe pulmonary hypertension, severe mitral regurgitation and severe tricuspid regurgitation. Cardiology is following #8. Left arm numbness with acute onset this morning with a brain CT showing atrophy and chronic appearing periventricular and deep white matter ischemic type changes. CT angios of the head and neck showed bilateral internal carotid artery origins narrowing greater than 70% #9. Large right-sided pleural effusion and a smaller left pleural effusion, with ultrasound of the chest showing 13.7 cm fluid pocket on the right, and 5.5 cm on the left #10. Chronic atrial fibrillation, on Eliquis, which we'll place on hold #11. Hypertension #12. Macular degeneration #13. History of smoking in remission for last 20 years #14. Extensive vascular calcification within the aorta, and within the bilateral kidneys Plan: We'll get the patient 10 mg of vitamin K, and 2 units of fresh frozen plasma, we will hold anticoagulation in view of continued blood-tinged output from the NG tube. Echocardiogram results have been noted, liver ultrasound results have been noted, today's chest x-ray has been reviewed. Patient remains hypotensive requiring high doses of norepinephrine, in addition patient developed A. fib with RVR, cardiology consulted, patient has been started on Cardizem for rate control. Antibiotics in the form of meropenem, we will obtain pancultures although possibility of septic shock is less likely. Suspect ischemic bowel in view of persistent lactic acidosis. Surgical services are following. Case was discussed with them. Patient is critically ill, probably poor candidate for surgery. Patient's family changed the CODE STATUS to DO NOT RESUSCITATE last night. Patient remains quite critically ill at this time, prognosis is quite guarded. Continue same ventilator settings. Today's blood gases, chest x-ray were reviewed. I performed a history & physical examination of the patient and discussed their management with my nurse practitioner, Estela Stanton. I reviewed the nurse practitioner's note and agree with the documented findings and plan of care. Lung sounds are positive for diminished breath sounds. The findings and the impression was discussed with the patient. I attest to the documentation by the nurse practitioner. Time with Patient: Greater than 30
[2019-12-15 14:12] LABS: Glucose,Whole Blood 120 mg/dL (75-99)
--- NOTE | 2019-12-15 14:42 | P.PN ---
Subjective Progress Note Date: 12/15/19 CHIEF COMPLAINT: Left thyroid nodule HISTORY OF PRESENT ILLNESS: Patient seen and examined with Dr. Miller. Status post left thyroidectomy. Patient required transfer to the ICU yesterday due to acute hypotension in which she required fluid resuscitation and vasopressor support. Patient was intubated and placed on mechanical ventilation. Patient's anticoagulation was placed on hold due to blood tinged output from her NG tube. Her NG tube does have very dark output. There initially was concerns of adrenal insufficiency. However, it is felt now likely that patient had an aortic occlusion That caused a flow limiting stenosis contributing to ischemic bowel. Patient has been seen by both pulmonary, cardiology and medicine service. Patient's random cortisol level came back greater than 123 this was obtained before the stress dose of hydrocortisone.Pulmonary has ordered 10 mg of vitamin K and 2 units of FFP. Patient remains on pressors. Cardiology is placed patient on Cardizem for heart rate control. Hypoglycemia has improved Patient had computed tomography scan of the brain completed showing atrophy with chronic appearing periventricular and deep white matter ischemic type changes. Computed tomography scan of the abdomen shows small to moderate right and small left pleural effusion. Mild compressive atelectasis of the right lower lobe. Extensive vascular calcifications within the aorta especially at the level of the diaphragm. This may be creating a flow limiting stenosis. Vascular calcification within the bilateral kidneys. Small amount of free fluid within the pelvis. Small amount of air appears to be within the right atrium. CTA of the head and neck bilateral internal carotid artery origins have narrowing greater than 70%. Normal robinson of Amin. There is a 1.7 cm nodule adjacent to moderate right pleural effusion within the right upper lung field. Liver ultrasound shows common bile duct is dilated up to 12 mm. No cholelithiasis. Chest x-ray pulmonary disease she'll edema mildly decreased Echo shows an EF of 2025% left atrium is severely dilated mild aortic regurgitation severe mitral and tricuspid regurgitation, Moderate to severe pulmonary hypertension WBC 15.4 hemoglobin 13.2 AST 8644 [id number] creatinine 1.5 INR 3.6 Lactic acid 12.1 PHYSICAL EXAM: VITAL SIGNS: Reviewed. GENERAL: Well-developed in no acute distress. HEENT: No sclera icterus. Extraocular movements grossly intact. Moist buccal mucosa. Head is atraumatic, normocephalic. Incision site of the neck clean dry and intact. Minimal swelling noted. ABDOMEN: Soft. Nondistended. nG tube in place with dark output NEUROLOGIC: Patient is intubated and sedated ASSESSMENT: 1. Left thyroid nodule status post left thyroidectomy. Postop day #2 2. Acute hypotension and hypothermia 3. 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 Ischemic bowel 5. Severe lactic acidosis possibly due to ischemic bowel 6. Multiorgan failure related to shock and ischemic bowel 7. Increased blood-tinged output from NG tube Poss related to gastritis. Anticoagulation remains on hold 8. Left arm weakness Possibly related to TIA 9. Chronic atrial fibrillation 10. Bilateral ICA stenosis of greater than 70% PLAN: -Continue ICU management and care -Case discussed with critical care service And medicine -No plans for surgical intervention at this time -Continue to monitor patient closely Physician [employer]ner note has been reviewed by physician. Signing provider agrees with the documented findings, assessment, and plan of care. Objective - Vital Signs Vital signs: Vital Signs Temp 98.2 F 12/15/19 12:00 Pulse 102 H 12/15/19 14:00 Resp 24 12/15/19 14:00 BP 62/42 12/15/19 14:00 Pulse Ox 100 12/15/19 14:00 Intake & Output 12/14/19 12/15/19 12/15/19 18:59 06:59 18:59 Intake Total 1307.401 331.869 5802.386 Output Total 1060 324 41 Balance 247.401 684.966 7366.386 Weight 70 kg Intake: IV 6 36 1299 0.9 flush 6 36 3 Dextrose 5% in Water 1, 600 000 ml @ 75 mls/hr IV . [id number] TONY with Sodium Bicarb (1 Meq/ml) 150 ml Rx#:[id number] Dextrose 5%-0.45% NaCl 1, 525 000 ml @ 75 mls/hr IV . [id number] TONY Rx#:[id number] Meropenem 1 gm In Sodium 100 Chloride 0.9% 100 ml @ 200 mls/hr IVPB ONCE ONE Rx#:[id number] Phytonadione 10 mg In 50 Sodium Chloride 0.9% 50 ml @ 100 mls/hr IVPB ONCE STA Rx#:[id number] Pressure Bags 21 Intake, IV Titration 1301.401 389.659 150.386 Amount Dextrose 5% in Water 1, 150 150 000 ml @ 75 mls/hr IV . [id number] TONY with Sodium Bicarb (1 Meq/ml) 150 ml Rx#:[id number] Dextrose 5%-0.45% NaCl 1, 150 75 000 ml @ 75 mls/hr IV . [id number] TONY Rx#:[id number] Diltiazem 125 mg In 7.667 Sodium Chloride 0.9% 100 ml @ Per Protocol IV .Q0M TONY Rx#:[id number] Lactated Ringers 1,000 ml 1000 @ 999 mls/hr IV .Q1H1M ONE Rx#:[id number] Meropenem 1 gm In Sodium 100 Chloride 0.9% 100 ml @ 33 .333 mls/hr IVPB Q12HR TONY Rx#:[id number] Norepinephrine 32 mg In 1.401 17.241 37.301 Sodium Chloride 0.9% 218 ml @ 0.05 MCG/KG/MIN 1. 512 mls/hr IV .Q24H TONY Rx#:[id number] Sodium Chloride 0.9% 150 4.59 ml @ 0.03 UNITS/MIN 4.59 mls/hr IV .Q24H TONY with Vasopressin 60 unit Rx#: [id number] propofoL 1,000 mg In 42.828 105.418 Empty Bag 1 bag @ Titrate IV .Q0M TONY Rx#: [id number] Output: Gastric Drainage 1050 200 Urine 10 124 41 Other: Voiding Method Indwelling Catheter Indwelling Catheter Indwelling Catheter # Voids 0 ABP, PAP, CO, CI - Last Documented Arterial Blood Pressure 140/140 - Labs CBC & Chem 7: 12/15/19 04:45 12/15/19 04:45 Labs: Abnormal Lab Results - Last 24 Hours (Table) 12/14/19 12/14/19 12/14/19 Range/Units 14:30 15:19 15:19 WBC (3.8-10.6) k/uL MCV (80.0-100.0) fL MCHC (31.0-37.0) g/dL Plt Count (150-450) k/uL PT (9.0-12.0) sec INR (<1.2) APTT (22.0-30.0) sec ABG pH (7.35-7.45) ABG pCO2 (35-45) mmHg ABG pO2 (83-108) mmHg ABG HCO3 (21-25) mmol/L ABG Total CO2 (19-24) mmol/L ABG O2 Saturation (94-97) % Sodium (137-145) mmol/L Chloride (98-107) mmol/L Carbon Dioxide (22-30) mmol/L BUN (7-17) mg/dL Creatinine (0.52-1.04) mg/dL Glucose (74-99) mg/dL POC Glucose (mg/dL) 125 H (75-99) mg/dL Hemoglobin A1c 6.1 H (4.0-6.0) % Plasma Lactic Acid Myles (0.7-2.0) mmol/L Calcium (8.4-10.2) mg/dL Phosphorus (2.5-4.5) mg/dL Total Bilirubin (0.2-1.3) mg/dL AST (14-36) U/L ALT (4-34) U/L Alkaline Phosphatase (38-126) U/L Total Protein (6.3-8.2) g/dL Albumin (3.5-5.0) g/dL Triglycerides (<150) mg/dL HDL Cholesterol (40-60) mg/dL Vitamin B12 1532.0 H (200.0-944.0) pg/mL TSH (0.465-4.680) mIU/L Free T4 (0.78-2.19) ng/dL ACTH (0.00-45.99) pg/mL 12/14/19 12/14/19 12/14/19 Range/Units 15:19 15:35 16:46 WBC (3.8-10.6) k/uL MCV (80.0-100.0) fL MCHC (31.0-37.0) g/dL Plt Count (150-450) k/uL PT 28.9 H (9.0-12.0) sec INR 3.0 H (<1.2) APTT 35.4 H (22.0-30.0) sec ABG pH (7.35-7.45) ABG pCO2 (35-45) mmHg ABG pO2 (83-108) mmHg ABG HCO3 (21-25) mmol/L ABG Total CO2 (19-24) mmol/L ABG O2 Saturation (94-97) % Sodium (137-145) mmol/L Chloride (98-107) mmol/L Carbon Dioxide (22-30) mmol/L BUN (7-17) mg/dL Creatinine (0.52-1.04) mg/dL Glucose (74-99) mg/dL POC Glucose (mg/dL) 108 H (75-99) mg/dL Hemoglobin A1c (4.0-6.0) % Plasma Lactic Acid Myles (0.7-2.0) mmol/L Calcium (8.4-10.2) mg/dL Phosphorus (2.5-4.5) mg/dL Total Bilirubin (0.2-1.3) mg/dL AST (14-36) U/L ALT (4-34) U/L Alkaline Phosphatase (38-126) U/L Total Protein (6.3-8.2) g/dL Albumin (3.5-5.0) g/dL Triglycerides (<150) mg/dL HDL Cholesterol (40-60) mg/dL Vitamin B12 (200.0-944.0) pg/mL TSH (0.465-4.680) mIU/L Free T4 (0.78-2.19) ng/dL ACTH 267.00 H (0.00-45.99) pg/mL 12/14/19 12/14/19 12/14/19 Range/Units 16:46 16:46 16:46 WBC 23.0 H (3.8-10.6) k/uL MCV 101.7 H (80.0-100.0) fL MCHC 29.3 L (31.0-37.0) g/dL Plt Count (150-450) k/uL PT (9.0-12.0) sec INR (<1.2) APTT (22.0-30.0) sec ABG pH (7.35-7.45) ABG pCO2 (35-45) mmHg ABG pO2 (83-108) mmHg ABG HCO3 (21-25) mmol/L ABG Total CO2 (19-24) mmol/L ABG O2 Saturation (94-97) % Sodium 134 L (137-145) mmol/L Chloride (98-107) mmol/L Carbon Dioxide 18 L (22-30) mmol/L BUN 25 H (7-17) mg/dL Creatinine 1.44 H (0.52-1.04) mg/dL Glucose 119 H (74-99) mg/dL POC Glucose (mg/dL) (75-99) mg/dL Hemoglobin A1c (4.0-6.0) % Plasma Lactic Acid Myles 13.2 H* (0.7-2.0) mmol/L Calcium (8.4-10.2) mg/dL Phosphorus (2.5-4.5) mg/dL Total Bilirubin (0.2-1.3) mg/dL AST (14-36) U/L ALT (4-34) U/L Alkaline Phosphatase (38-126) U/L Total Protein (6.3-8.2) g/dL Albumin (3.5-5.0) g/dL Triglycerides (<150) mg/dL HDL Cholesterol (40-60) mg/dL Vitamin B12 (200.0-944.0) pg/mL TSH (0.465-4.680) mIU/L Free T4 (0.78-2.19) ng/dL ACTH (0.00-45.99) pg/mL 12/14/19 12/14/19 12/14/19 Range/Units 16:58 17:09 18:44 WBC (3.8-10.6) k/uL MCV (80.0-100.0) fL MCHC (31.0-37.0) g/dL Plt Count (150-450) k/uL PT (9.0-12.0) sec INR (<1.2) APTT (22.0-30.0) sec ABG pH 7.05 L* 7.28 L (7.35-7.45) ABG pCO2 54 H 49 H (35-45) mmHg ABG pO2 291 H 72 L (83-108) mmHg ABG HCO3 15 L (21-25) mmol/L ABG Total CO2 17 L 25 H (19-24) mmol/L ABG O2 Saturation 100.0 H 93.9 L (94-97) % Sodium (137-145) mmol/L Chloride (98-107) mmol/L Carbon Dioxide (22-30) mmol/L BUN (7-17) mg/dL Creatinine (0.52-1.04) mg/dL Glucose (74-99) mg/dL POC Glucose (mg/dL) 115 H (75-99) mg/dL Hemoglobin A1c (4.0-6.0) % Plasma Lactic Acid Myles (0.7-2.0) mmol/L Calcium (8.4-10.2) mg/dL Phosphorus (2.5-4.5) mg/dL Total Bilirubin (0.2-1.3) mg/dL AST (14-36) U/L ALT (4-34) U/L Alkaline Phosphatase (38-126) U/L Total Protein (6.3-8.2) g/dL Albumin (3.5-5.0) g/dL Triglycerides (<150) mg/dL HDL Cholesterol (40-60) mg/dL Vitamin B12 (200.0-944.0) pg/mL TSH (0.465-4.680) mIU/L Free T4 (0.78-2.19) ng/dL ACTH (0.00-45.99) pg/mL 12/14/19 12/14/19 12/14/19 Range/Units 20:43 23:00 23:00 WBC 16.2 H (3.8-10.6) k/uL MCV (80.0-100.0) fL MCHC (31.0-37.0) g/dL Plt Count (150-450) k/uL PT 33.5 H (9.0-12.0) sec INR 3.4 H (<1.2) APTT (22.0-30.0) sec ABG pH (7.35-7.45) ABG pCO2 (35-45) mmHg ABG pO2 (83-108) mmHg ABG HCO3 (21-25) mmol/L ABG Total CO2 (19-24) mmol/L ABG O2 Saturation (94-97) % Sodium (137-145) mmol/L Chloride (98-107) mmol/L Carbon Dioxide (22-30) mmol/L BUN (7-17) mg/dL Creatinine (0.52-1.04) mg/dL Glucose (74-99) mg/dL POC Glucose (mg/dL) (75-99) mg/dL Hemoglobin A1c (4.0-6.0) % Plasma Lactic Acid Myles 16.5 H* (0.7-2.0) mmol/L Calcium (8.4-10.2) mg/dL Phosphorus (2.5-4.5) mg/dL Total Bilirubin (0.2-1.3) mg/dL AST (14-36) U/L ALT (4-34) U/L Alkaline Phosphatase (38-126) U/L Total Protein (6.3-8.2) g/dL Albumin (3.5-5.0) g/dL Triglycerides (<150) mg/dL HDL Cholesterol (40-60) mg/dL Vitamin B12 (200.0-944.0) pg/mL TSH (0.465-4.680) mIU/L Free T4 (0.78-2.19) ng/dL ACTH (0.00-45.99) pg/mL 12/14/19 12/15/19 12/15/19 Range/Units 23:00 00:40 02:40 WBC (3.8-10.6) k/uL MCV (80.0-100.0) fL MCHC (31.0-37.0) g/dL Plt Count (150-450) k/uL PT (9.0-12.0) sec INR (<1.2) APTT (22.0-30.0) sec ABG pH (7.35-7.45) ABG pCO2 (35-45) mmHg ABG pO2 (83-108) mmHg ABG HCO3 (21-25) mmol/L ABG Total CO2 (19-24) mmol/L ABG O2 Saturation (94-97) % Sodium (137-145) mmol/L Chloride 95 L (98-107) mmol/L Carbon Dioxide (22-30) mmol/L BUN 25 H (7-17) mg/dL Creatinine 1.45 H (0.52-1.04) mg/dL Glucose 154 H (74-99) mg/dL POC Glucose (mg/dL) (75-99) mg/dL Hemoglobin A1c (4.0-6.0) % Plasma Lactic Acid Myles 15.9 H* 14.9 H* (0.7-2.0) mmol/L Calcium 8.0 L (8.4-10.2) mg/dL Phosphorus (2.5-4.5) mg/dL Total Bilirubin 2.4 H (0.2-1.3) mg/dL AST 5581 H (14-36) U/L ALT 1909 H (4-34) U/L Alkaline Phosphatase (38-126) U/L Total Protein 4.0 L (6.3-8.2) g/dL Albumin 2.1 L (3.5-5.0) g/dL Triglycerides (<150) mg/dL HDL Cholesterol (40-60) mg/dL Vitamin B12 (200.0-944.0) pg/mL TSH 0.055 L (0.465-4.680) mIU/L Free T4 4.87 H (0.78-2.19) ng/dL ACTH (0.00-45.99) pg/mL 12/15/19 12/15/19 12/15/19 Range/Units 04:45 04:45 04:45 WBC 15.4 H (3.8-10.6) k/uL MCV (80.0-100.0) fL MCHC (31.0-37.0) g/dL Plt Count 146 L (150-450) k/uL PT 35.1 H (9.0-12.0) sec INR 3.6 H (<1.2) APTT (22.0-30.0) sec ABG pH (7.35-7.45) ABG pCO2 (35-45) mmHg ABG pO2 (83-108) mmHg ABG HCO3 (21-25) mmol/L ABG Total CO2 (19-24) mmol/L ABG O2 Saturation (94-97) % Sodium 135 L (137-145) mmol/L Chloride 93 L (98-107) mmol/L Carbon Dioxide (22-30) mmol/L BUN 27 H (7-17) mg/dL Creatinine 1.50 H (0.52-1.04) mg/dL Glucose 176 H (74-99) mg/dL POC Glucose (mg/dL) (75-99) mg/dL Hemoglobin A1c (4.0-6.0) % Plasma Lactic Acid Myles (0.7-2.0) mmol/L Calcium 7.9 L (8.4-10.2) mg/dL Phosphorus 5.3 H (2.5-4.5) mg/dL Total Bilirubin 2.9 H (0.2-1.3) mg/dL AST 8644 H (14-36) U/L ALT 3023 H (4-34) U/L Alkaline Phosphatase 138 H (38-126) U/L Total Protein 4.3 L (6.3-8.2) g/dL Albumin 2.2 L (3.5-5.0) g/dL Triglycerides 238 H (<150) mg/dL HDL Cholesterol 19 L (40-60) mg/dL Vitamin B12 (200.0-944.0) pg/mL TSH (0.465-4.680) mIU/L Free T4 (0.78-2.19) ng/dL ACTH (0.00-45.99) pg/mL 12/15/19 12/15/19 12/15/19 Range/Units 04:45 07:42 09:45 WBC (3.8-10.6) k/uL MCV (80.0-100.0) fL MCHC (31.0-37.0) g/dL Plt Count (150-450) k/uL PT (9.0-12.0) sec INR (<1.2) APTT (22.0-30.0) sec ABG pH 7.46 H (7.35-7.45) ABG pCO2 (35-45) mmHg ABG pO2 (83-108) mmHg ABG HCO3 27 H (21-25) mmol/L ABG Total CO2 28 H (19-24) mmol/L ABG O2 Saturation 98.3 H (94-97) % Sodium (137-145) mmol/L Chloride (98-107) mmol/L Carbon Dioxide (22-30) mmol/L BUN (7-17) mg/dL Creatinine (0.52-1.04) mg/dL Glucose (74-99) mg/dL POC Glucose (mg/dL) (75-99) mg/dL Hemoglobin A1c (4.0-6.0) % Plasma Lactic Acid Myles 13.8 H* 12.3 H* (0.7-2.0) mmol/L Calcium (8.4-10.2) mg/dL Phosphorus (2.5-4.5) mg/dL Total Bilirubin (0.2-1.3) mg/dL AST (14-36) U/L ALT (4-34) U/L Alkaline Phosphatase (38-126) U/L Total Protein (6.3-8.2) g/dL Albumin (3.5-5.0) g/dL Triglycerides (<150) mg/dL HDL Cholesterol (40-60) mg/dL Vitamin B12 (200.0-944.0) pg/mL TSH (0.465-4.680) mIU/L Free T4 (0.78-2.19) ng/dL ACTH (0.00-45.99) pg/mL 12/15/19 Range/Units 14:00 WBC (3.8-10.6) k/uL MCV (80.0-100.0) fL MCHC (31.0-37.0) g/dL Plt Count (150-450) k/uL PT (9.0-12.0) sec INR (<1.2) APTT (22.0-30.0) sec ABG pH (7.35-7.45) ABG pCO2 (35-45) mmHg ABG pO2 (83-108) mmHg ABG HCO3 (21-25) mmol/L ABG Total CO2 (19-24) mmol/L ABG O2 Saturation (94-97) % Sodium (137-145) mmol/L Chloride (98-107) mmol/L Carbon Dioxide (22-30) mmol/L BUN (7-17) mg/dL Creatinine (0.52-1.04) mg/dL Glucose (74-99) mg/dL POC Glucose (mg/dL) 120 H (75-99) mg/dL Hemoglobin A1c (4.0-6.0) % Plasma Lactic Acid Myles (0.7-2.0) mmol/L Calcium (8.4-10.2) mg/dL Phosphorus (2.5-4.5) mg/dL Total Bilirubin (0.2-1.3) mg/dL AST (14-36) U/L ALT (4-34) U/L Alkaline Phosphatase (38-126) U/L Total Protein (6.3-8.2) g/dL Albumin (3.5-5.0) g/dL Triglycerides (<150) mg/dL HDL Cholesterol (40-60) mg/dL Vitamin B12 (200.0-944.0) pg/mL TSH (0.465-4.680) mIU/L Free T4 (0.78-2.19) ng/dL ACTH (0.00-45.99) pg/mL
--- NOTE | 2019-12-15 15:18 | P.PN ---
Subjective Progress Note Date: 12/15/19 Patient was seen for a follow-up. Patient apparently got significantly worse yesterday, developed respiratory distress, requiring immediate intubation. Patient was hypotensive, acidotic suspected ischemic bowel. Patient was considered not a candidate for surgery because of profound hypotension requiring Levophed and vasopressors. Anticoagulation discontinued because of GI bleeding. Patient at present is sedated with propofol 20. Patient's liver functions have gotten much worse, creatinine is worsening. Troponin is negative. Hemoglobin A1c 6.1, total cholesterol 62, LDL unable to be calculated. Triglycerides 238. Objective - Vital Signs Vital signs: Vital Signs Temp 98.2 F 12/15/19 12:00 Pulse 102 H 12/15/19 14:00 Resp 24 12/15/19 14:00 BP 62/42 12/15/19 14:00 Pulse Ox 100 12/15/19 14:00 Intake & Output 12/14/19 12/15/19 12/15/19 18:59 06:59 18:59 Intake Total 1307.401 911.028 0118.386 Output Total 1060 324 41 Balance 247.401 602.387 1031.386 Weight 70 kg Intake: IV 6 36 1299 0.9 flush 6 36 3 Dextrose 5% in Water 1, 600 000 ml @ 75 mls/hr IV . [id number] TONY with Sodium Bicarb (1 Meq/ml) 150 ml Rx#:[id number] Dextrose 5%-0.45% NaCl 1, 525 000 ml @ 75 mls/hr IV . [id number] TONY Rx#:[id number] Meropenem 1 gm In Sodium 100 Chloride 0.9% 100 ml @ 200 mls/hr IVPB ONCE ONE Rx#:[id number] Phytonadione 10 mg In 50 Sodium Chloride 0.9% 50 ml @ 100 mls/hr IVPB ONCE STA Rx#:[id number] Pressure Bags 21 Intake, IV Titration 1301.401 389.659 150.386 Amount Dextrose 5% in Water 1, 150 150 000 ml @ 75 mls/hr IV . [id number] TONY with Sodium Bicarb (1 Meq/ml) 150 ml Rx#:[id number] Dextrose 5%-0.45% NaCl 1, 150 75 000 ml @ 75 mls/hr IV . [id number] TONY Rx#:[id number] Diltiazem 125 mg In 7.667 Sodium Chloride 0.9% 100 ml @ Per Protocol IV .Q0M TONY Rx#:[id number] Lactated Ringers 1,000 ml 1000 @ 999 mls/hr IV .Q1H1M ONE Rx#:[id number] Meropenem 1 gm In Sodium 100 Chloride 0.9% 100 ml @ 33 .333 mls/hr IVPB Q12HR TONY Rx#:[id number] Norepinephrine 32 mg In 1.401 17.241 37.301 Sodium Chloride 0.9% 218 ml @ 0.05 MCG/KG/MIN 1. 512 mls/hr IV .Q24H TONY Rx#:[id number] Sodium Chloride 0.9% 150 4.59 ml @ 0.03 UNITS/MIN 4.59 mls/hr IV .Q24H TONY with Vasopressin 60 unit Rx#: [id number] propofoL 1,000 mg In 42.828 105.418 Empty Bag 1 bag @ Titrate IV .Q0M TONY Rx#: [id number] Output: Gastric Drainage 1050 200 Urine 10 124 41 Other: Voiding Method Indwelling Catheter Indwelling Catheter Indwelling Catheter # Voids 0 ABP, PAP, CO, CI - Last Documented Arterial Blood Pressure 140/140 - Exam Patient has got clinically much worse. Patient is intubated, sedated. Pupils are round and minimally reacting. Patient's sclerae significantly icteric. Patient is breathing over the ventilator. Detailed testing deferred. - Labs CBC & Chem 7: 12/15/19 04:45 12/15/19 04:45 Labs: Abnormal Lab Results - Last 24 Hours (Table) 12/14/19 12/14/19 12/14/19 Range/Units 15:19 15:19 15:19 WBC (3.8-10.6) k/uL MCV (80.0-100.0) fL MCHC (31.0-37.0) g/dL Plt Count (150-450) k/uL PT (9.0-12.0) sec INR (<1.2) APTT (22.0-30.0) sec ABG pH (7.35-7.45) ABG pCO2 (35-45) mmHg ABG pO2 (83-108) mmHg ABG HCO3 (21-25) mmol/L ABG Total CO2 (19-24) mmol/L ABG O2 Saturation (94-97) % Sodium (137-145) mmol/L Chloride (98-107) mmol/L Carbon Dioxide (22-30) mmol/L BUN (7-17) mg/dL Creatinine (0.52-1.04) mg/dL Glucose (74-99) mg/dL POC Glucose (mg/dL) (75-99) mg/dL Hemoglobin A1c 6.1 H (4.0-6.0) % Plasma Lactic Acid Myles (0.7-2.0) mmol/L Calcium (8.4-10.2) mg/dL Phosphorus (2.5-4.5) mg/dL Total Bilirubin (0.2-1.3) mg/dL AST (14-36) U/L ALT (4-34) U/L Alkaline Phosphatase (38-126) U/L Total Protein (6.3-8.2) g/dL Albumin (3.5-5.0) g/dL Triglycerides (<150) mg/dL HDL Cholesterol (40-60) mg/dL Vitamin B12 1532.0 H (200.0-944.0) pg/mL TSH (0.465-4.680) mIU/L Free T4 (0.78-2.19) ng/dL ACTH 267.00 H (0.00-45.99) pg/mL 12/14/19 12/14/19 12/14/19 Range/Units 15:35 16:46 16:46 WBC (3.8-10.6) k/uL MCV (80.0-100.0) fL MCHC (31.0-37.0) g/dL Plt Count (150-450) k/uL PT 28.9 H (9.0-12.0) sec INR 3.0 H (<1.2) APTT 35.4 H (22.0-30.0) sec ABG pH (7.35-7.45) ABG pCO2 (35-45) mmHg ABG pO2 (83-108) mmHg ABG HCO3 (21-25) mmol/L ABG Total CO2 (19-24) mmol/L ABG O2 Saturation (94-97) % Sodium 134 L (137-145) mmol/L Chloride (98-107) mmol/L Carbon Dioxide 18 L (22-30) mmol/L BUN 25 H (7-17) mg/dL Creatinine 1.44 H (0.52-1.04) mg/dL Glucose 119 H (74-99) mg/dL POC Glucose (mg/dL) 108 H (75-99) mg/dL Hemoglobin A1c (4.0-6.0) % Plasma Lactic Acid Myles (0.7-2.0) mmol/L Calcium (8.4-10.2) mg/dL Phosphorus (2.5-4.5) mg/dL Total Bilirubin (0.2-1.3) mg/dL AST (14-36) U/L ALT (4-34) U/L Alkaline Phosphatase (38-126) U/L Total Protein (6.3-8.2) g/dL Albumin (3.5-5.0) g/dL Triglycerides (<150) mg/dL HDL Cholesterol (40-60) mg/dL Vitamin B12 (200.0-944.0) pg/mL TSH (0.465-4.680) mIU/L Free T4 (0.78-2.19) ng/dL ACTH (0.00-45.99) pg/mL 12/14/19 12/14/19 12/14/19 Range/Units 16:46 16:46 16:58 WBC 23.0 H (3.8-10.6) k/uL MCV 101.7 H (80.0-100.0) fL MCHC 29.3 L (31.0-37.0) g/dL Plt Count (150-450) k/uL PT (9.0-12.0) sec INR (<1.2) APTT (22.0-30.0) sec ABG pH (7.35-7.45) ABG pCO2 (35-45) mmHg ABG pO2 (83-108) mmHg ABG HCO3 (21-25) mmol/L ABG Total CO2 (19-24) mmol/L ABG O2 Saturation (94-97) % Sodium (137-145) mmol/L Chloride (98-107) mmol/L Carbon Dioxide (22-30) mmol/L BUN (7-17) mg/dL Creatinine (0.52-1.04) mg/dL Glucose (74-99) mg/dL POC Glucose (mg/dL) 115 H (75-99) mg/dL Hemoglobin A1c (4.0-6.0) % Plasma Lactic Acid Myles 13.2 H* (0.7-2.0) mmol/L Calcium (8.4-10.2) mg/dL Phosphorus (2.5-4.5) mg/dL Total Bilirubin (0.2-1.3) mg/dL AST (14-36) U/L ALT (4-34) U/L Alkaline Phosphatase (38-126) U/L Total Protein (6.3-8.2) g/dL Albumin (3.5-5.0) g/dL Triglycerides (<150) mg/dL HDL Cholesterol (40-60) mg/dL Vitamin B12 (200.0-944.0) pg/mL TSH (0.465-4.680) mIU/L Free T4 (0.78-2.19) ng/dL ACTH (0.00-45.99) pg/mL 12/14/19 12/14/19 12/14/19 Range/Units 17:09 18:44 20:43 WBC (3.8-10.6) k/uL MCV (80.0-100.0) fL MCHC (31.0-37.0) g/dL Plt Count (150-450) k/uL PT (9.0-12.0) sec INR (<1.2) APTT (22.0-30.0) sec ABG pH 7.05 L* 7.28 L (7.35-7.45) ABG pCO2 54 H 49 H (35-45) mmHg ABG pO2 291 H 72 L (83-108) mmHg ABG HCO3 15 L (21-25) mmol/L ABG Total CO2 17 L 25 H (19-24) mmol/L ABG O2 Saturation 100.0 H 93.9 L (94-97) % Sodium (137-145) mmol/L Chloride (98-107) mmol/L Carbon Dioxide (22-30) mmol/L BUN (7-17) mg/dL Creatinine (0.52-1.04) mg/dL Glucose (74-99) mg/dL POC Glucose (mg/dL) (75-99) mg/dL Hemoglobin A1c (4.0-6.0) % Plasma Lactic Acid Myles 16.5 H* (0.7-2.0) mmol/L Calcium (8.4-10.2) mg/dL Phosphorus (2.5-4.5) mg/dL Total Bilirubin (0.2-1.3) mg/dL AST (14-36) U/L ALT (4-34) U/L Alkaline Phosphatase (38-126) U/L Total Protein (6.3-8.2) g/dL Albumin (3.5-5.0) g/dL Triglycerides (<150) mg/dL HDL Cholesterol (40-60) mg/dL Vitamin B12 (200.0-944.0) pg/mL TSH (0.465-4.680) mIU/L Free T4 (0.78-2.19) ng/dL ACTH (0.00-45.99) pg/mL 12/14/19 12/14/19 12/14/19 Range/Units 23:00 23:00 23:00 WBC 16.2 H (3.8-10.6) k/uL MCV (80.0-100.0) fL MCHC (31.0-37.0) g/dL Plt Count (150-450) k/uL PT 33.5 H (9.0-12.0) sec INR 3.4 H (<1.2) APTT (22.0-30.0) sec ABG pH (7.35-7.45) ABG pCO2 (35-45) mmHg ABG pO2 (83-108) mmHg ABG HCO3 (21-25) mmol/L ABG Total CO2 (19-24) mmol/L ABG O2 Saturation (94-97) % Sodium (137-145) mmol/L Chloride 95 L (98-107) mmol/L Carbon Dioxide (22-30) mmol/L BUN 25 H (7-17) mg/dL Creatinine 1.45 H (0.52-1.04) mg/dL Glucose 154 H (74-99) mg/dL POC Glucose (mg/dL) (75-99) mg/dL Hemoglobin A1c (4.0-6.0) % Plasma Lactic Acid Myles (0.7-2.0) mmol/L Calcium 8.0 L (8.4-10.2) mg/dL Phosphorus (2.5-4.5) mg/dL Total Bilirubin 2.4 H (0.2-1.3) mg/dL AST 5581 H (14-36) U/L ALT 1909 H (4-34) U/L Alkaline Phosphatase (38-126) U/L Total Protein 4.0 L (6.3-8.2) g/dL Albumin 2.1 L (3.5-5.0) g/dL Triglycerides (<150) mg/dL HDL Cholesterol (40-60) mg/dL Vitamin B12 (200.0-944.0) pg/mL TSH 0.055 L (0.465-4.680) mIU/L Free T4 4.87 H (0.78-2.19) ng/dL ACTH (0.00-45.99) pg/mL 12/15/19 12/15/19 12/15/19 Range/Units 00:40 02:40 04:45 WBC (3.8-10.6) k/uL MCV (80.0-100.0) fL MCHC (31.0-37.0) g/dL Plt Count (150-450) k/uL PT (9.0-12.0) sec INR (<1.2) APTT (22.0-30.0) sec ABG pH (7.35-7.45) ABG pCO2 (35-45) mmHg ABG pO2 (83-108) mmHg ABG HCO3 (21-25) mmol/L ABG Total CO2 (19-24) mmol/L ABG O2 Saturation (94-97) % Sodium 135 L (137-145) mmol/L Chloride 93 L (98-107) mmol/L Carbon Dioxide (22-30) mmol/L BUN 27 H (7-17) mg/dL Creatinine 1.50 H (0.52-1.04) mg/dL Glucose 176 H (74-99) mg/dL POC Glucose (mg/dL) (75-99) mg/dL Hemoglobin A1c (4.0-6.0) % Plasma Lactic Acid Myles 15.9 H* 14.9 H* (0.7-2.0) mmol/L Calcium 7.9 L (8.4-10.2) mg/dL Phosphorus 5.3 H (2.5-4.5) mg/dL Total Bilirubin 2.9 H (0.2-1.3) mg/dL AST 8644 H (14-36) U/L ALT 3023 H (4-34) U/L Alkaline Phosphatase 138 H (38-126) U/L Total Protein 4.3 L (6.3-8.2) g/dL Albumin 2.2 L (3.5-5.0) g/dL Triglycerides 238 H (<150) mg/dL HDL Cholesterol 19 L (40-60) mg/dL Vitamin B12 (200.0-944.0) pg/mL TSH (0.465-4.680) mIU/L Free T4 (0.78-2.19) ng/dL ACTH (0.00-45.99) pg/mL 12/15/19 12/15/19 12/15/19 Range/Units 04:45 04:45 04:45 WBC 15.4 H (3.8-10.6) k/uL MCV (80.0-100.0) fL MCHC (31.0-37.0) g/dL Plt Count 146 L (150-450) k/uL PT 35.1 H (9.0-12.0) sec INR 3.6 H (<1.2) APTT (22.0-30.0) sec ABG pH (7.35-7.45) ABG pCO2 (35-45) mmHg ABG pO2 (83-108) mmHg ABG HCO3 (21-25) mmol/L ABG Total CO2 (19-24) mmol/L ABG O2 Saturation (94-97) % Sodium (137-145) mmol/L Chloride (98-107) mmol/L Carbon Dioxide (22-30) mmol/L BUN (7-17) mg/dL Creatinine (0.52-1.04) mg/dL Glucose (74-99) mg/dL POC Glucose (mg/dL) (75-99) mg/dL Hemoglobin A1c (4.0-6.0) % Plasma Lactic Acid Myles 13.8 H* (0.7-2.0) mmol/L Calcium (8.4-10.2) mg/dL Phosphorus (2.5-4.5) mg/dL Total Bilirubin (0.2-1.3) mg/dL AST (14-36) U/L ALT (4-34) U/L Alkaline Phosphatase (38-126) U/L Total Protein (6.3-8.2) g/dL Albumin (3.5-5.0) g/dL Triglycerides (<150) mg/dL HDL Cholesterol (40-60) mg/dL Vitamin B12 (200.0-944.0) pg/mL TSH (0.465-4.680) mIU/L Free T4 (0.78-2.19) ng/dL ACTH (0.00-45.99) pg/mL 12/15/19 12/15/19 12/15/19 Range/Units 07:42 09:45 14:00 WBC (3.8-10.6) k/uL MCV (80.0-100.0) fL MCHC (31.0-37.0) g/dL Plt Count (150-450) k/uL PT (9.0-12.0) sec INR (<1.2) APTT (22.0-30.0) sec ABG pH 7.46 H (7.35-7.45) ABG pCO2 (35-45) mmHg ABG pO2 (83-108) mmHg ABG HCO3 27 H (21-25) mmol/L ABG Total CO2 28 H (19-24) mmol/L ABG O2 Saturation 98.3 H (94-97) % Sodium (137-145) mmol/L Chloride (98-107) mmol/L Carbon Dioxide (22-30) mmol/L BUN (7-17) mg/dL Creatinine (0.52-1.04) mg/dL Glucose (74-99) mg/dL POC Glucose (mg/dL) 120 H (75-99) mg/dL Hemoglobin A1c (4.0-6.0) % Plasma Lactic Acid Myles 12.3 H* (0.7-2.0) mmol/L Calcium (8.4-10.2) mg/dL Phosphorus (2.5-4.5) mg/dL Total Bilirubin (0.2-1.3) mg/dL AST (14-36) U/L ALT (4-34) U/L Alkaline Phosphatase (38-126) U/L Total Protein (6.3-8.2) g/dL Albumin (3.5-5.0) g/dL Triglycerides (<150) mg/dL HDL Cholesterol (40-60) mg/dL Vitamin B12 (200.0-944.0) pg/mL TSH (0.465-4.680) mIU/L Free T4 (0.78-2.19) ng/dL ACTH (0.00-45.99) pg/mL 12/15/19 Range/Units 14:04 WBC (3.8-10.6) k/uL MCV (80.0-100.0) fL MCHC (31.0-37.0) g/dL Plt Count (150-450) k/uL PT (9.0-12.0) sec INR (<1.2) APTT (22.0-30.0) sec ABG pH (7.35-7.45) ABG pCO2 (35-45) mmHg ABG pO2 (83-108) mmHg ABG HCO3 (21-25) mmol/L ABG Total CO2 (19-24) mmol/L ABG O2 Saturation (94-97) % Sodium (137-145) mmol/L Chloride (98-107) mmol/L Carbon Dioxide (22-30) mmol/L BUN (7-17) mg/dL Creatinine (0.52-1.04) mg/dL Glucose (74-99) mg/dL POC Glucose (mg/dL) (75-99) mg/dL Hemoglobin A1c (4.0-6.0) % Plasma Lactic Acid Myles 12.1 H* (0.7-2.0) mmol/L Calcium (8.4-10.2) mg/dL Phosphorus (2.5-4.5) mg/dL Total Bilirubin (0.2-1.3) mg/dL AST (14-36) U/L ALT (4-34) U/L Alkaline Phosphatase (38-126) U/L Total Protein (6.3-8.2) g/dL Albumin (3.5-5.0) g/dL Triglycerides (<150) mg/dL HDL Cholesterol (40-60) mg/dL Vitamin B12 (200.0-944.0) pg/mL TSH (0.465-4.680) mIU/L Free T4 (0.78-2.19) ng/dL ACTH (0.00-45.99) pg/mL Assessment and Plan Assessment: * 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 * Atrial fibrillation, on long-term anticoagulation, although held preoperatively for left thyroidectomy. * Status post left thyroidectomy 12/13/2019. * Bilateral ICA stenosis > 70% per CTA. * hypertension * Elevated liver enzymes * Acute renal insufficiency Plan: * Anticoagulation/antiplatelets held due to coagulopathy. Patient received vitamin K. To be getting FFP. * Repeat computed tomography scan of the head, when possible to follow-up on possible CVA.. * Suggest vascular surgical consultation for bilateral ICA stenosis of > 70%. * Hemoglobin A1c 6.1 and lipid panel with cholesterol 62, LDL cannot be checked and triglycerides 238. B12 1005 and 32, folate 18.9 * Patient is DO NOT RESUSCITATE now. * Patient critically sick. Discussed with patient's daughter in detail. * Medical/surgical management as per other specialties.
--- NOTE | 2019-12-15 16:11 | P.PN ---
Subjective Progress Note Date: 12/15/19 (delayed charting seen at 1055) Principal diagnosis: thyroid nodule Patient is an 84 yo CF with a hx of a fib treated with cardioversion now on xarelto and metoprolol, macular degeneration, and HTN who presented for elective left thyroidectomy for thyroid nodule with neck pressure. initially she was doing well after surgery. However on the morning of 12/13 she was noted to be lethargic. She was also having some left arm weakness. Past contacted by nursing voice coach was activated. Patient's blood sugar came back at 33. She received IV glucose and her symptoms improved. She underwent a stat CT brain and CTA of the head and neck.CT brain showed atrophy with chronic appearing periventricular and deep white matter ischemic changes. CTA of the head and neck showed bilateral internal carotid arteries with narrowing greater than 70% and a normal [facility] [employer]. She was also noted to have a 1.7 cm nodule adjacent right pleural effusion within the right upper lobe. She was complaining of abdominal pain and also underwent a CT abdomen and pelvis this demonstrated a small to moderate right and small left pleural effusion, compressive atelectasis, extensive vascular calcifications within the aortic specialist at the level of the diaphragm which may be creating flow limiting lesions, vascular calcification the bilateral kidneys, and a small amount of free fluid within the pelvis. Her laboratory analysis showed white blood cell count of 15.8, potassium 5.8 with slight hemolysis, CO2 17, anion gap 22, BUN 26, creatinine 1.28, phosphorus 7.5, AST 736, ALT 307. Repeat potassium level was normalized at 5.1. Shortly after arrival to the cardiac unit and she again had an episode of hypoglycemia this time associated with hypotension. She was started on a D5 half normal saline drip with correction of her hypoglycemia. cardiology was consulted secondary to her history of atrial fibrillation. Pulmonary was consulted secondary to discovery of a pulmonary nodule and right sided pleural effusion. In the afternoon on 12/13 she became hypothermic and again had an episode of hypotension. She was having some confusion and lethargy. IV Solu- Cortef was ordered due to concerns for adrenal insufficiency. She was also started on Synthroid. She was transferred to the ICU, intubated. Adrenal insufficiency ruled out due to cortisol level greater than 123. Patient had severe lactic acidosis. She required multiple pressors Patient seen and examined. Sedated on vent. Per nursing A fib overnight started on cardizem, increased output from the NGT. General: ill appearing, max distress, on vent, intubated, art line, central line Derm: incision in place over the neck Head: atraumatic, normocephalic, symmetric Eyes: pupils pinpoint, no lid lesions, anicteric sclera Mouth: no lip lesion, mucus membranes dry Cardiovascular: S1S2 irreg, no murmur, positive posterior tibial pulse bilateral, Lungs: Decreased bs bilateral, no rhonchi, no rales , no accessory muscle use Abdominal: + distended, soft, nontender to palpation, no guarding, no appreciable organomegaly, dark urine Ext: no gross muscle atrophy, 2+ edema, no contractures Neuro: sedated on vent and unresponsive, on withdrawal to pain in UE Psych: Sedated on vent Shock liver, Severe Lactic acidosis, Multi organ system dysfunction, Coagulopathy, SUPRIYA - critical care recs - IVF with bicarb, follow lactic acid level - consult GI - consult nephro - Supprotive care - Follow CMP - Follow INR and give vitamin K as indicated - Live US results noted Probable Ischemic Bowel due to flow limiting aortic lesion - supportive care - gen surgery recs Acute metabolic encepahlopathy - Supportive care Left arm weakness, improved with hx of chronic weakness - possible acute CVA - Once stable repeat head CT - Eliquid on hold with coagulopathy - neuro recs appreciated - CT brain without acute process - CT head and neck with bilateral carotid stenosis Hypoglycemia - continue with Dextrose - follow BS Right pulm nodule with large right sided pleural effusion - Pulm recs Carotid stenosis bilateral - outpatient vascular surgery consult Thyroid nodule - s/p left thyroidectomy - pain control - antiemetics - start thyroid replacement therapy A fib with RVR - cardizem gtt - eliquis on hold - cardio recs - tele Cardiomyopathy EF 25% - likely due to stress - cardio recs - tele - hypotesive with SUPRIYA no BB or ACEI Chronic: HTN Macular degeneration Adrenal insufficiency ruled out with elevated cortisol level Myxedema coma ruled out Prognosis poor. Thank you for allowing us to participate in the care of this pleasant patient. Do not hesitate to contact us with questions. Someone can be reached from the [facility]– [place]Note 2[place] hospitalist group all hours of the day at [phone] or via [employer] serve. Objective - Vital Signs Vital signs: Vital Signs Temp 97.7 F 12/15/19 15:21 Pulse 99 12/15/19 15:21 Resp 24 12/15/19 15:21 BP 101/45 12/15/19 15:21 Pulse Ox 100 12/15/19 15:21 Intake & Output 12/14/19 12/15/19 12/15/19 18:59 06:59 18:59 Intake Total 1307.401 255.633 3183.386 Output Total 1060 324 46 Balance 247.401 788.229 8511.386 Weight 70 kg Intake: IV 6 36 1455 0.9 flush 6 36 3 Dextrose 5% in Water 1, 675 000 ml @ 75 mls/hr IV . [id number] TONY with Sodium Bicarb (1 Meq/ml) 150 ml Rx#:[id number] Dextrose 5%-0.45% NaCl 1, 600 000 ml @ 75 mls/hr IV . [id number] TONY Rx#:[id number] Meropenem 1 gm In Sodium 100 Chloride 0.9% 100 ml @ 200 mls/hr IVPB ONCE ONE Rx#:[id number] Phytonadione 10 mg In 50 Sodium Chloride 0.9% 50 ml @ 100 mls/hr IVPB ONCE STA Rx#:[id number] Pressure Bags 27 Intake, IV Titration 1301.401 389.659 150.386 Amount Dextrose 5% in Water 1, 150 150 000 ml @ 75 mls/hr IV . [id number] TONY with Sodium Bicarb (1 Meq/ml) 150 ml Rx#:[id number] Dextrose 5%-0.45% NaCl 1, 150 75 000 ml @ 75 mls/hr IV . [id number] TONY Rx#:[id number] Diltiazem 125 mg In 7.667 Sodium Chloride 0.9% 100 ml @ Per Protocol IV .Q0M TONY Rx#:[id number] Lactated Ringers 1,000 ml 1000 @ 999 mls/hr IV .Q1H1M ONE Rx#:[id number] Meropenem 1 gm In Sodium 100 Chloride 0.9% 100 ml @ 33 .333 mls/hr IVPB Q12HR TONY Rx#:[id number] Norepinephrine 32 mg In 1.401 17.241 37.301 Sodium Chloride 0.9% 218 ml @ 0.05 MCG/KG/MIN 1. 512 mls/hr IV .Q24H TONY Rx#:[id number] Sodium Chloride 0.9% 150 4.59 ml @ 0.03 UNITS/MIN 4.59 mls/hr IV .Q24H TONY with Vasopressin 60 unit Rx#: [id number] propofoL 1,000 mg In 42.828 105.418 Empty Bag 1 bag @ Titrate IV .Q0M TONY Rx#: [id number] Blood Product 0 Ffp 24 Cpd Unit 0 [id number] Output: Gastric Drainage 1050 200 Urine 10 124 46 Other: Voiding Method Indwelling Catheter Indwelling Catheter Indwelling Catheter # Voids 0 ABP, PAP, CO, CI - Last Documented Arterial Blood Pressure 115/51 - Labs CBC & Chem 7: 12/15/19 04:45 12/15/19 04:45 Labs: Abnormal Lab Results - Last 24 Hours (Table) 12/14/19 12/14/19 12/14/19 Range/Units 15:19 15:19 15:19 WBC (3.8-10.6) k/uL MCV (80.0-100.0) fL MCHC (31.0-37.0) g/dL Plt Count (150-450) k/uL PT (9.0-12.0) sec INR (<1.2) APTT (22.0-30.0) sec ABG pH (7.35-7.45) ABG pCO2 (35-45) mmHg ABG pO2 (83-108) mmHg ABG HCO3 (21-25) mmol/L ABG Total CO2 (19-24) mmol/L ABG O2 Saturation (94-97) % Sodium (137-145) mmol/L Chloride (98-107) mmol/L Carbon Dioxide (22-30) mmol/L BUN (7-17) mg/dL Creatinine (0.52-1.04) mg/dL Glucose (74-99) mg/dL POC Glucose (mg/dL) (75-99) mg/dL Hemoglobin A1c 6.1 H (4.0-6.0) % Plasma Lactic Acid Myles (0.7-2.0) mmol/L Calcium (8.4-10.2) mg/dL Phosphorus (2.5-4.5) mg/dL Total Bilirubin (0.2-1.3) mg/dL AST (14-36) U/L ALT (4-34) U/L Alkaline Phosphatase (38-126) U/L Troponin I (0.000-0.034) ng/mL Total Protein (6.3-8.2) g/dL Albumin (3.5-5.0) g/dL Triglycerides (<150) mg/dL HDL Cholesterol (40-60) mg/dL Vitamin B12 1532.0 H (200.0-944.0) pg/mL TSH (0.465-4.680) mIU/L Free T4 (0.78-2.19) ng/dL ACTH 267.00 H (0.00-45.99) pg/mL 12/14/19 12/14/19 12/14/19 Range/Units 16:46 16:46 16:46 WBC (3.8-10.6) k/uL MCV (80.0-100.0) fL MCHC (31.0-37.0) g/dL Plt Count (150-450) k/uL PT 28.9 H (9.0-12.0) sec INR 3.0 H (<1.2) APTT 35.4 H (22.0-30.0) sec ABG pH (7.35-7.45) ABG pCO2 (35-45) mmHg ABG pO2 (83-108) mmHg ABG HCO3 (21-25) mmol/L ABG Total CO2 (19-24) mmol/L ABG O2 Saturation (94-97) % Sodium 134 L (137-145) mmol/L Chloride (98-107) mmol/L Carbon Dioxide 18 L (22-30) mmol/L BUN 25 H (7-17) mg/dL Creatinine 1.44 H (0.52-1.04) mg/dL Glucose 119 H (74-99) mg/dL POC Glucose (mg/dL) (75-99) mg/dL Hemoglobin A1c (4.0-6.0) % Plasma Lactic Acid Myles 13.2 H* (0.7-2.0) mmol/L Calcium (8.4-10.2) mg/dL Phosphorus (2.5-4.5) mg/dL Total Bilirubin (0.2-1.3) mg/dL AST (14-36) U/L ALT (4-34) U/L Alkaline Phosphatase (38-126) U/L Troponin I (0.000-0.034) ng/mL Total Protein (6.3-8.2) g/dL Albumin (3.5-5.0) g/dL Triglycerides (<150) mg/dL HDL Cholesterol (40-60) mg/dL Vitamin B12 (200.0-944.0) pg/mL TSH (0.465-4.680) mIU/L Free T4 (0.78-2.19) ng/dL ACTH (0.00-45.99) pg/mL 12/14/19 12/14/19 12/14/19 Range/Units 16:46 16:58 17:09 WBC 23.0 H (3.8-10.6) k/uL MCV 101.7 H (80.0-100.0) fL MCHC 29.3 L (31.0-37.0) g/dL Plt Count (150-450) k/uL PT (9.0-12.0) sec INR (<1.2) APTT (22.0-30.0) sec ABG pH 7.05 L* (7.35-7.45) ABG pCO2 54 H (35-45) mmHg ABG pO2 291 H (83-108) mmHg ABG HCO3 15 L (21-25) mmol/L ABG Total CO2 17 L (19-24) mmol/L ABG O2 Saturation 100.0 H (94-97) % Sodium (137-145) mmol/L Chloride (98-107) mmol/L Carbon Dioxide (22-30) mmol/L BUN (7-17) mg/dL Creatinine (0.52-1.04) mg/dL Glucose (74-99) mg/dL POC Glucose (mg/dL) 115 H (75-99) mg/dL Hemoglobin A1c (4.0-6.0) % Plasma Lactic Acid Myles (0.7-2.0) mmol/L Calcium (8.4-10.2) mg/dL Phosphorus (2.5-4.5) mg/dL Total Bilirubin (0.2-1.3) mg/dL AST (14-36) U/L ALT (4-34) U/L Alkaline Phosphatase (38-126) U/L Troponin I (0.000-0.034) ng/mL Total Protein (6.3-8.2) g/dL Albumin (3.5-5.0) g/dL Triglycerides (<150) mg/dL HDL Cholesterol (40-60) mg/dL Vitamin B12 (200.0-944.0) pg/mL TSH (0.465-4.680) mIU/L Free T4 (0.78-2.19) ng/dL ACTH (0.00-45.99) pg/mL 12/14/19 12/14/19 12/14/19 Range/Units 18:44 20:43 23:00 WBC 16.2 H (3.8-10.6) k/uL MCV (80.0-100.0) fL MCHC (31.0-37.0) g/dL Plt Count (150-450) k/uL PT (9.0-12.0) sec INR (<1.2) APTT (22.0-30.0) sec ABG pH 7.28 L (7.35-7.45) ABG pCO2 49 H (35-45) mmHg ABG pO2 72 L (83-108) mmHg ABG HCO3 (21-25) mmol/L ABG Total CO2 25 H (19-24) mmol/L ABG O2 Saturation 93.9 L (94-97) % Sodium (137-145) mmol/L Chloride (98-107) mmol/L Carbon Dioxide (22-30) mmol/L BUN (7-17) mg/dL Creatinine (0.52-1.04) mg/dL Glucose (74-99) mg/dL POC Glucose (mg/dL) (75-99) mg/dL Hemoglobin A1c (4.0-6.0) % Plasma Lactic Acid Myles 16.5 H* (0.7-2.0) mmol/L Calcium (8.4-10.2) mg/dL Phosphorus (2.5-4.5) mg/dL Total Bilirubin (0.2-1.3) mg/dL AST (14-36) U/L ALT (4-34) U/L Alkaline Phosphatase (38-126) U/L Troponin I (0.000-0.034) ng/mL Total Protein (6.3-8.2) g/dL Albumin (3.5-5.0) g/dL Triglycerides (<150) mg/dL HDL Cholesterol (40-60) mg/dL Vitamin B12 (200.0-944.0) pg/mL TSH (0.465-4.680) mIU/L Free T4 (0.78-2.19) ng/dL ACTH (0.00-45.99) pg/mL 12/14/19 12/14/19 12/15/19 Range/Units 23:00 23:00 00:40 WBC (3.8-10.6) k/uL MCV (80.0-100.0) fL MCHC (31.0-37.0) g/dL Plt Count (150-450) k/uL PT 33.5 H (9.0-12.0) sec INR 3.4 H (<1.2) APTT (22.0-30.0) sec ABG pH (7.35-7.45) ABG pCO2 (35-45) mmHg ABG pO2 (83-108) mmHg ABG HCO3 (21-25) mmol/L ABG Total CO2 (19-24) mmol/L ABG O2 Saturation (94-97) % Sodium (137-145) mmol/L Chloride 95 L (98-107) mmol/L Carbon Dioxide (22-30) mmol/L BUN 25 H (7-17) mg/dL Creatinine 1.45 H (0.52-1.04) mg/dL Glucose 154 H (74-99) mg/dL POC Glucose (mg/dL) (75-99) mg/dL Hemoglobin A1c (4.0-6.0) % Plasma Lactic Acid Myles 15.9 H* (0.7-2.0) mmol/L Calcium 8.0 L (8.4-10.2) mg/dL Phosphorus (2.5-4.5) mg/dL Total Bilirubin 2.4 H (0.2-1.3) mg/dL AST 5581 H (14-36) U/L ALT 1909 H (4-34) U/L Alkaline Phosphatase (38-126) U/L Troponin I (0.000-0.034) ng/mL Total Protein 4.0 L (6.3-8.2) g/dL Albumin 2.1 L (3.5-5.0) g/dL Triglycerides (<150) mg/dL HDL Cholesterol (40-60) mg/dL Vitamin B12 (200.0-944.0) pg/mL TSH 0.055 L (0.465-4.680) mIU/L Free T4 4.87 H (0.78-2.19) ng/dL ACTH (0.00-45.99) pg/mL 12/15/19 12/15/19 12/15/19 Range/Units 02:40 04:45 04:45 WBC 15.4 H (3.8-10.6) k/uL MCV (80.0-100.0) fL MCHC (31.0-37.0) g/dL Plt Count 146 L (150-450) k/uL PT (9.0-12.0) sec INR (<1.2) APTT (22.0-30.0) sec ABG pH (7.35-7.45) ABG pCO2 (35-45) mmHg ABG pO2 (83-108) mmHg ABG HCO3 (21-25) mmol/L ABG Total CO2 (19-24) mmol/L ABG O2 Saturation (94-97) % Sodium 135 L (137-145) mmol/L Chloride 93 L (98-107) mmol/L Carbon Dioxide (22-30) mmol/L BUN 27 H (7-17) mg/dL Creatinine 1.50 H (0.52-1.04) mg/dL Glucose 176 H (74-99) mg/dL POC Glucose (mg/dL) (75-99) mg/dL Hemoglobin A1c (4.0-6.0) % Plasma Lactic Acid Myles 14.9 H* (0.7-2.0) mmol/L Calcium 7.9 L (8.4-10.2) mg/dL Phosphorus 5.3 H (2.5-4.5) mg/dL Total Bilirubin 2.9 H (0.2-1.3) mg/dL AST 8644 H (14-36) U/L ALT 3023 H (4-34) U/L Alkaline Phosphatase 138 H (38-126) U/L Troponin I (0.000-0.034) ng/mL Total Protein 4.3 L (6.3-8.2) g/dL Albumin 2.2 L (3.5-5.0) g/dL Triglycerides 238 H (<150) mg/dL HDL Cholesterol 19 L (40-60) mg/dL Vitamin B12 (200.0-944.0) pg/mL TSH (0.465-4.680) mIU/L Free T4 (0.78-2.19) ng/dL ACTH (0.00-45.99) pg/mL 12/15/19 12/15/19 12/15/19 Range/Units 04:45 04:45 04:45 WBC (3.8-10.6) k/uL MCV (80.0-100.0) fL MCHC (31.0-37.0) g/dL Plt Count (150-450) k/uL PT 35.1 H (9.0-12.0) sec INR 3.6 H (<1.2) APTT (22.0-30.0) sec ABG pH (7.35-7.45) ABG pCO2 (35-45) mmHg ABG pO2 (83-108) mmHg ABG HCO3 (21-25) mmol/L ABG Total CO2 (19-24) mmol/L ABG O2 Saturation (94-97) % Sodium (137-145) mmol/L Chloride (98-107) mmol/L Carbon Dioxide (22-30) mmol/L BUN (7-17) mg/dL Creatinine (0.52-1.04) mg/dL Glucose (74-99) mg/dL POC Glucose (mg/dL) (75-99) mg/dL Hemoglobin A1c (4.0-6.0) % Plasma Lactic Acid Myles 13.8 H* (0.7-2.0) mmol/L Calcium (8.4-10.2) mg/dL Phosphorus (2.5-4.5) mg/dL Total Bilirubin (0.2-1.3) mg/dL AST (14-36) U/L ALT (4-34) U/L Alkaline Phosphatase (38-126) U/L Troponin I 0.380 H* (0.000-0.034) ng/mL Total Protein (6.3-8.2) g/dL Albumin (3.5-5.0) g/dL Triglycerides (<150) mg/dL HDL Cholesterol (40-60) mg/dL Vitamin B12 (200.0-944.0) pg/mL TSH (0.465-4.680) mIU/L Free T4 (0.78-2.19) ng/dL ACTH (0.00-45.99) pg/mL 12/15/19 12/15/19 12/15/19 Range/Units 07:42 09:45 14:00 WBC (3.8-10.6) k/uL MCV (80.0-100.0) fL MCHC (31.0-37.0) g/dL Plt Count (150-450) k/uL PT (9.0-12.0) sec INR (<1.2) APTT (22.0-30.0) sec ABG pH 7.46 H (7.35-7.45) ABG pCO2 (35-45) mmHg ABG pO2 (83-108) mmHg ABG HCO3 27 H (21-25) mmol/L ABG Total CO2 28 H (19-24) mmol/L ABG O2 Saturation 98.3 H (94-97) % Sodium (137-145) mmol/L Chloride (98-107) mmol/L Carbon Dioxide (22-30) mmol/L BUN (7-17) mg/dL Creatinine (0.52-1.04) mg/dL Glucose (74-99) mg/dL POC Glucose (mg/dL) 120 H (75-99) mg/dL Hemoglobin A1c (4.0-6.0) % Plasma Lactic Acid Myles 12.3 H* (0.7-2.0) mmol/L Calcium (8.4-10.2) mg/dL Phosphorus (2.5-4.5) mg/dL Total Bilirubin (0.2-1.3) mg/dL AST (14-36) U/L ALT (4-34) U/L Alkaline Phosphatase (38-126) U/L Troponin I (0.000-0.034) ng/mL Total Protein (6.3-8.2) g/dL Albumin (3.5-5.0) g/dL Triglycerides (<150) mg/dL HDL Cholesterol (40-60) mg/dL Vitamin B12 (200.0-944.0) pg/mL TSH (0.465-4.680) mIU/L Free T4 (0.78-2.19) ng/dL ACTH (0.00-45.99) pg/mL 12/15/19 Range/Units 14:04 WBC (3.8-10.6) k/uL MCV (80.0-100.0) fL MCHC (31.0-37.0) g/dL Plt Count (150-450) k/uL PT (9.0-12.0) sec INR (<1.2) APTT (22.0-30.0) sec ABG pH (7.35-7.45) ABG pCO2 (35-45) mmHg ABG pO2 (83-108) mmHg ABG HCO3 (21-25) mmol/L ABG Total CO2 (19-24) mmol/L ABG O2 Saturation (94-97) % Sodium (137-145) mmol/L Chloride (98-107) mmol/L Carbon Dioxide (22-30) mmol/L BUN (7-17) mg/dL Creatinine (0.52-1.04) mg/dL Glucose (74-99) mg/dL POC Glucose (mg/dL) (75-99) mg/dL Hemoglobin A1c (4.0-6.0) % Plasma Lactic Acid Myles 12.1 H* (0.7-2.0) mmol/L Calcium (8.4-10.2) mg/dL Phosphorus (2.5-4.5) mg/dL Total Bilirubin (0.2-1.3) mg/dL AST (14-36) U/L ALT (4-34) U/L Alkaline Phosphatase (38-126) U/L Troponin I (0.000-0.034) ng/mL Total Protein (6.3-8.2) g/dL Albumin (3.5-5.0) g/dL Triglycerides (<150) mg/dL HDL Cholesterol (40-60) mg/dL Vitamin B12 (200.0-944.0) pg/mL TSH (0.465-4.680) mIU/L Free T4 (0.78-2.19) ng/dL ACTH (0.00-45.99) pg/mL
[2019-12-15] MEDS: NOREPINEPHRINE 32 MG in SODIUM CHLORIDE 0.9% 218 ML IV SCH (17:17)
[2019-12-15] MEDS ORDERED: SODIUM CHLORIDE 0.45% 1,000 ML IV ONE (19:24)
[2019-12-15 21:10] LABS: Appearance,Urine Turbid (Clear); Bacteria,Urine Rare /hpf; Bilirubin,Urine Negative (Negative); Blood,Urine Large (Negative); Color,Urine Dark Brown; Glucose,Urine (UA) Trace (Negative); Ketones,Urine Negative (Negative); Leukocyte Esterase,Urine Large (Negative); Mucus,Urine Rare /hpf; Nitrite,Urine Negative (Negative); PH, Urine 5.5 (5.0-8.0); Protein,Urine 2+ (Negative); RBC,Urine 162 /hpf (0-5); Specific Gravity,Urine 1.025 (1.001-1.035); Squamous Epithelial Cell,Urine 1 /hpf (0-4); Urobilinogen,Urine <2.0 mg/dL (<2.0); WBC,Urine 167 /hpf (0-5)
[2019-12-15 21:15] LABS: Glucose,Whole Blood 128 mg/dL (75-99)
--- NOTE | 2019-12-15 23:51 | CONS ---
CONSULTATION DATE OF DICTATION: 12/15/2019 REASON FOR CONSULTATION: Elevated LFTs. HISTORY OF PRESENT ILLNESS: The patient is an 84-year-old pleasant white female who was with history of atrial fibrillation on Eliquis that was started in August of this year who underwent outpatient thyroid surgery [address] Miller. She underwent left thyroidectomy and postoperatively the patient developed hypotension. She was admitted to the hospital overnight for close observation. Yesterday morning she woke up, not feeling well and called her daughter. She was complaining of some abdominal pain, nausea, vomiting. A CT angiogram was immediately performed which was unremarkable. Subsequently she developed altered sensorium and became extremely hypotensive and a Code Blue was called. She was subsequently intubated and transferred to the intensive care unit. Presently she remains intubated on the vent, maintained on pressors and on review of her chart, she had chronic hypotension yesterday morning from 10 a.m. to 2 p.m. We are consulted because of acute elevation of serum transaminases. At the time of admission to the hospital, her serum transaminases were within normal limits except for AST slightly elevated at 41 and T-bilirubin was 1.3. The patient has no history of chronic liver disease. According to her patient's daughter who was at the bedside, she was in perfect health until August of this year at which time she was diagnosed with atrial fibrillation and was started on Eliquis and metoprolol. No history of chronic liver disease. No history of alcohol use. PAST MEDICAL HISTORY: Atrial fibrillation diagnosed in August of this year, hypertension, and thyroid disorder. PAST SURGICAL HISTORY: Bilateral cataract surgery and thyroid surgery 2 days ago. MEDICATIONS: Medications at home include Eliquis, Zestril, Tums, Lopressor, and Lasix. ALLERGIES: PENICILLIN. REVIEW OF SYSTEMS: Could not be obtained as patient is sedated on the vent. PHYSICAL EXAMINATION: She remains sedated on the vent on pressors. Blood pressure today is 107/51, pulse rate 108 per minute. HEENT EXAMINATION: Unremarkable. Conjunctivae pink. Sclerae anicteric. Oral cavity, no lesions. NECK: No JVD. CHEST: Clear to auscultation. HEART: Regular rate and rhythm. ABDOMEN: Slightly distended but it was nontender. It was very soft in consistency. EXTREMITIES: No pedal edema. NEUROLOGIC: She is sedated. LABS: Labs done at the time of admission to the hospital, AST and ALT were 42 and 53, respectively. T-bilirubin was 1.4. Today T bilirubin 2.9, AST 8644, ALT 3023, alkaline phosphatase 138. Yesterday AST was 5581 and ALT was 1909. BUN 27, creatinine 1.50. WBC 15.2, hemoglobin 13.2, platelets 146. PT 35.1 with an INR of 3.6. IMPRESSION: 1. Acute hepatocellular injury in this patient who presented with normal serum transaminases and is noted to have significant elevation of serum transaminases almost in the range of 5000 and 8000 as mentioned above. This is consistent with severe ischemic hepatitis secondary to hypoperfusion from prolonged hypotension. She also developed coagulopathy which likely suggests acute liver failure. 2. Status post thyroidectomy 2 days ago on an outpatient basis. 3. Abdominal pain, nausea, vomiting that developed yesterday morning followed by severe hypotension and altered mental status. Rule out ischemic bowel. Dr. Miller following the patient closely. CT angiogram and CT of the abdomen did not show any significant abnormalities. 4. History of atrial fibrillation on Eliquis, currently on hold. RECOMMENDATION: 1. Monitor LFTs closely. 2. Avoid hepatotoxic medications. 3. Because of the coagulopathy agree with continue holding anticoagulation. 4. Continue broad-spectrum antibiotics. 5. Symptomatic and supportive care with close monitoring. 6. We will follow with you closely. Thank you for this consultation. REHAN / MARA: [id number] /
[2019-12-16] MEDS: DEXTROSE 5% IN WATER 1,000 ML with SODIUM BICARB (1 MEQ/ML) 150 ML IV SCH (03:20)
[2019-12-16 05:56] LABS: Albumin 2.3 g/dL (3.5-5.0); Calcium 7.7 mg/dL (8.4-10.2); Potassium 5.6 mmol/L (3.5-5.1); Total Bilirubin 6.3 mg/dL (0.2-1.3); Total Protein 4.4 g/dL (6.3-8.2)
[2019-12-16 05:59] LABS: INR 2.7 (<1.2); Prothrombin Time 25.9 sec (9.0-12.0)
[2019-12-16 06:02] LABS: HCT 43.5 % (34.0-46.0); HGB 13.3 gm/dL (11.4-16.0); Hypochromasia Marked; MCH 29.3 pg (25.0-35.0); MCHC 30.5 g/dL (31.0-37.0); MCV 95.9 fL (80.0-100.0); Mean Platelet Volume 13.4; Platelet Count 103 k/uL (150-450); RBC 4.53 m/uL (3.80-5.40); RDW 14.6 % (11.5-15.5)
[2019-12-16] MEDS: HYDROCORTISONE SUCCINATE 100 MG/2 ML VIAL IV SCH (06:14)
[2019-12-16 06:16] LABS: Large Platelets Present
[2019-12-16 06:23] LABS: Band Neutrophils % 47 %; Lymphocytes # (M) 0.66 k/uL (1.0-4.8); Metamyelocytes # (M) 1.54 k/uL (0); Metamyelocytes % 7 %; Monocytes # (M) 0.22 k/uL (0-1.0); Myelocytes # (M) 0.22 k/uL (0); Myelocytes % 1 %; Neutrophils % (M) 42 %; Nucleated Red Blood Cells 2 /100 WBC (0-0); Total Cells Counted 200
[2019-12-16] MEDS ORDERED: DEXTROSE 50% SYRINGE 50 ML IVP ONE (07:20)
[2019-12-16 07:28] LABS: ABG Base Excess -8.2 mmol/L; ABG HCO3 18 mmol/L (21-25); ABG Oxygen Saturation 93.5 % (94-97); ABG PCO2 34 mmHg (35-45); ABG PH 7.33 (7.35-7.45); ABG PO2 78 mmHg (83-108); ABG TCO2 19 mmol/L (19-24); Allen Test Performed? Yes
[2019-12-16 07:45] LABS: Glucose,Whole Blood 163 mg/dL (75-99)
[2019-12-16] MEDS: DILTIAZEM 125 MG in SODIUM CHLORIDE 0.9% 100 ML IV SCH (08:07)
[2019-12-16] MEDS: NOREPINEPHRINE 32 MG in SODIUM CHLORIDE 0.9% 218 ML IV SCH (08:09)
[2019-12-16] MEDS: PANTOPRAZOLE 40 MG/10 ML VIAL IVP SCH (08:10)
[2019-12-16] MEDS: CHLORHEXIDINE GLUCONATE 15 ML CUP MUCOUS MEM SCH (08:10)
[2019-12-16] MEDS: MEROPENEM 1 GM in SODIUM CHLORIDE 0.9% 100 ML IVPB SCH (08:10)
[2019-12-16 08:15] LABS: Glucose,Whole Blood 87 mg/dL (75-99)
[2019-12-16] MEDS ORDERED: DEXTROSE 50% SYRINGE 50 ML IVP STA ×2 (08:16→08:38)
[2019-12-16] MEDS ORDERED: CALCIUM GLUCONATE 1 GM in SODIUM CHLORIDE 0.9% 100 ML IVPB ONE (08:16)
[2019-12-16] MEDS ORDERED: INSULIN REGULAR 100 UNIT/ML VIAL IV ONE (08:16)
[2019-12-16 08:30] VITALS: TEMP 97.3
[2019-12-16] MEDS ORDERED: DEXTROSE 5%-0.45% NACL 1,000 ML IV SCH (08:45)
[2019-12-16 10:12] VITALS: BP 75/38; PULSE 66; RESP 30
[2019-12-16] MEDS ORDERED: MORPHINE SULFATE 4 MG/ML SYRINGE IV PRN (10:22)
[2019-12-16] MEDS ORDERED: LORazepam 2 MG/ML INJ IV PRN (10:22)
[2019-12-16] MEDS ORDERED: MORPHINE SULFATE (100 MG/2 ML) 100 MG in SODIUM CHLORIDE 0.9% 100 ML IV SCH (10:30)
--- NOTE | 2019-12-16 12:10 | XR ---
EXAMINATION TYPE: XR chest 1V portable DATE OF EXAM: 12/16/2019 COMPARISON: 12/15/2019 INDICATION: Tube placement TECHNIQUE: Single frontal view of the chest is obtained. FINDINGS: The heart size is normal. The pulmonary vasculature is normal. There is a moderate right pleural effusion. Small left pleural effusion is present. Endotracheal tube tip is above the delmi. Nasogastric tube transverses the thorax. IMPRESSION: 1. Stable bilateral pleural effusions. 2. Lines and catheters discussed above.
--- NOTE | 2019-12-16 12:23 | P.PN ---
Subjective Progress Note Date: 12/16/19 Principal diagnosis: Elevated LFTs The patient was seen and examined in the ICU. The patient remains sedated and intubated. OG tube is in place with minimal output. Patient is having minimal urine output. The patient's family was coming to the hospital to decide on changing the patient to comfort measures only. Objective - Vital Signs Vital signs: Vital Signs Temp 97.3 F L 12/16/19 08:00 Pulse 66 12/16/19 10:00 Resp 30 H 12/16/19 10:00 BP 75/38 12/16/19 10:00 Pulse Ox 93 L 12/16/19 10:00 Intake & Output 12/15/19 12/16/19 12/16/19 18:59 06:59 18:59 Intake Total 2423.959 2357.899 853.193 Output Total 71 201 0 Balance 2352.959 2156.899 853.193 Weight 78.5 kg Intake: IV 1917 1761 721 0.9 flush 3 Dextrose 5% in Water 1, 900 825 300 000 ml @ 75 mls/hr IV . [id number] [facility] with Sodium Bicarb (1 Meq/ml) 150 ml Rx#:[id number] Dextrose 5%-0.45% NaCl 1, 825 150 000 ml @ 75 mls/hr IV . [id number] [facility] Rx#:[id number] Meropenem 1 gm In Sodium 100 Chloride 0.9% 100 ml @ 200 mls/hr IVPB ONCE ONE Rx#:[id number] Meropenem 1 gm In Sodium 100 Chloride 0.9% 100 ml @ 33 .333 mls/hr IVPB Q12HR [facility] Rx#:[id number] Phytonadione 10 mg In 50 Sodium Chloride 0.9% 50 ml @ 100 mls/hr IVPB ONCE STA Rx#:[id number] Pressure Bags 39 36 21 Sodium Chloride 0.45% 1, 750 300 000 ml @ 75 mls/hr IV . [id number] [facility] Rx#:[id number] Intake, IV Titration 203.959 257.899 132.193 Amount Diltiazem 125 mg In 7.667 117.333 Sodium Chloride 0.9% 100 ml @ Per Protocol IV .Q0M [facility] Rx#:[id number] Morphine Sulfate (100 mg/ 0.187 2 ml) 100 mg In Sodium Chloride 0.9% 100 ml @ 1 MG/HR 1.02 mls/hr IV . Q24H [facility] Rx#:[id number] Norepinephrine 32 mg In 90.874 100.056 14.673 Sodium Chloride 0.9% 218 ml @ 0.05 MCG/KG/MIN 1. 512 mls/hr IV .Q24H [facility] Rx#:[id number] propofoL 1,000 mg In 105.418 157.843 Empty Bag 1 bag @ Titrate IV .Q0M [facility] Rx#: [id number] Blood Product 303 339 Ffp 24 Cpd Unit 0 339 [id number] Ffp 24 Cpd Unit 303 [id number] Output: Gastric Drainage 150 Urine 71 51 0 Other: Voiding Method Indwelling Catheter Indwelling Catheter Indwelling Catheter # Voids 0 ABP, PAP, CO, CI - Last Documented Arterial Blood Pressure 109/34 - Exam General appearance: Sedated and intubated HET: Head is normocephalic and atraumatic. Conjunctiva pink. Sclera icteric. Neck: Supple without lymphadenopathy. Abdomen: Soft, nontender, nondistended with bowel sounds. No guarding or rigidity. Extremities: Jaundiced. No pedal edema Neurological: Updated and intubated. - Labs CBC & Chem 7: 12/16/19 05:20 12/16/19 05:20 Labs: Abnormal Lab Results - Last 24 Hours (Table) 12/15/19 12/15/19 12/15/19 Range/Units 04:45 14:00 14:04 WBC (3.8-10.6) k/uL MCHC (31.0-37.0) g/dL Plt Count (150-450) k/uL Neutrophils # (Manual) (1.3-7.7) k/uL Lymphocytes # (Manual) (1.0-4.8) k/uL Metamyelocytes # (Man) (0) k/uL Myelocytes # (Manual) (0) k/uL Nucleated RBCs (0-0) /100 WBC PT (9.0-12.0) sec INR (<1.2) ABG pH (7.35-7.45) ABG pCO2 (35-45) mmHg ABG pO2 (83-108) mmHg ABG HCO3 (21-25) mmol/L ABG O2 Saturation (94-97) % Sodium (137-145) mmol/L Potassium (3.5-5.1) mmol/L Chloride (98-107) mmol/L Carbon Dioxide (22-30) mmol/L BUN (7-17) mg/dL Creatinine (0.52-1.04) mg/dL Glucose (74-99) mg/dL POC Glucose (mg/dL) 120 H (75-99) mg/dL Plasma Lactic Acid Myles 12.1 H* (0.7-2.0) mmol/L Calcium (8.4-10.2) mg/dL Total Bilirubin (0.2-1.3) mg/dL AST (14-36) U/L ALT (4-34) U/L Alkaline Phosphatase (38-126) U/L Troponin I 0.380 H* (0.000-0.034) ng/mL Total Protein (6.3-8.2) g/dL Albumin (3.5-5.0) g/dL Urine Appearance (Clear) Urine Protein (Negative) Urine Glucose (UA) (Negative) Urine Blood (Negative) Ur Leukocyte Esterase (Negative) Urine RBC (0-5) /hpf Urine WBC (0-5) /hpf Urine WBC Clumps (None) /hpf Urine Bacteria (None) /hpf Urine Mucus (None) /hpf 12/15/19 12/15/19 12/15/19 Range/Units 17:00 17:00 20:45 WBC (3.8-10.6) k/uL MCHC (31.0-37.0) g/dL Plt Count (150-450) k/uL Neutrophils # (Manual) (1.3-7.7) k/uL Lymphocytes # (Manual) (1.0-4.8) k/uL Metamyelocytes # (Man) (0) k/uL Myelocytes # (Manual) (0) k/uL Nucleated RBCs (0-0) /100 WBC PT (9.0-12.0) sec INR (<1.2) ABG pH (7.35-7.45) ABG pCO2 (35-45) mmHg ABG pO2 (83-108) mmHg ABG HCO3 (21-25) mmol/L ABG O2 Saturation (94-97) % Sodium (137-145) mmol/L Potassium (3.5-5.1) mmol/L Chloride (98-107) mmol/L Carbon Dioxide (22-30) mmol/L BUN (7-17) mg/dL Creatinine (0.52-1.04) mg/dL Glucose (74-99) mg/dL POC Glucose (mg/dL) (75-99) mg/dL Plasma Lactic Acid Myles 12.4 H* (0.7-2.0) mmol/L Calcium (8.4-10.2) mg/dL Total Bilirubin (0.2-1.3) mg/dL AST (14-36) U/L ALT (4-34) U/L Alkaline Phosphatase (38-126) U/L Troponin I 0.604 H* (0.000-0.034) ng/mL Total Protein (6.3-8.2) g/dL Albumin (3.5-5.0) g/dL Urine Appearance Turbid H (Clear) Urine Protein 2+ H (Negative) Urine Glucose (UA) Trace H (Negative) Urine Blood Large H (Negative) Ur Leukocyte Esterase Large H (Negative) Urine RBC 162 H (0-5) /hpf Urine WBC 167 H (0-5) /hpf Urine WBC Clumps Rare H (None) /hpf Urine Bacteria Rare H (None) /hpf Urine Mucus Rare H (None) /hpf 12/15/19 12/15/19 12/15/19 Range/Units 21:13 21:15 23:25 WBC (3.8-10.6) k/uL MCHC (31.0-37.0) g/dL Plt Count (150-450) k/uL Neutrophils # (Manual) (1.3-7.7) k/uL Lymphocytes # (Manual) (1.0-4.8) k/uL Metamyelocytes # (Man) (0) k/uL Myelocytes # (Manual) (0) k/uL Nucleated RBCs (0-0) /100 WBC PT (9.0-12.0) sec INR (<1.2) ABG pH (7.35-7.45) ABG pCO2 (35-45) mmHg ABG pO2 (83-108) mmHg ABG HCO3 (21-25) mmol/L ABG O2 Saturation (94-97) % Sodium (137-145) mmol/L Potassium (3.5-5.1) mmol/L Chloride (98-107) mmol/L Carbon Dioxide (22-30) mmol/L BUN (7-17) mg/dL Creatinine (0.52-1.04) mg/dL Glucose (74-99) mg/dL POC Glucose (mg/dL) 128 H (75-99) mg/dL Plasma Lactic Acid Myles 13.2 H* 13.7 H* (0.7-2.0) mmol/L Calcium (8.4-10.2) mg/dL Total Bilirubin (0.2-1.3) mg/dL AST (14-36) U/L ALT (4-34) U/L Alkaline Phosphatase (38-126) U/L Troponin I (0.000-0.034) ng/mL Total Protein (6.3-8.2) g/dL Albumin (3.5-5.0) g/dL Urine Appearance (Clear) Urine Protein (Negative) Urine Glucose (UA) (Negative) Urine Blood (Negative) Ur Leukocyte Esterase (Negative) Urine RBC (0-5) /hpf Urine WBC (0-5) /hpf Urine WBC Clumps (None) /hpf Urine Bacteria (None) /hpf Urine Mucus (None) /hpf 12/16/19 12/16/19 12/16/19 Range/Units 02:35 05:20 05:20 WBC 22.0 H (3.8-10.6) k/uL MCHC 30.5 L (31.0-37.0) g/dL Plt Count 103 L (150-450) k/uL Neutrophils # (Manual) 19.50 H (1.3-7.7) k/uL Lymphocytes # (Manual) 0.66 L (1.0-4.8) k/uL Metamyelocytes # (Man) 1.54 H (0) k/uL Myelocytes # (Manual) 0.22 H (0) k/uL Nucleated RBCs 2 H (0-0) /100 WBC PT (9.0-12.0) sec INR (<1.2) ABG pH (7.35-7.45) ABG pCO2 (35-45) mmHg ABG pO2 (83-108) mmHg ABG HCO3 (21-25) mmol/L ABG O2 Saturation (94-97) % Sodium 131 L (137-145) mmol/L Potassium 5.6 H (3.5-5.1) mmol/L Chloride 90 L (98-107) mmol/L Carbon Dioxide 19 L (22-30) mmol/L BUN 28 H (7-17) mg/dL Creatinine 1.85 H (0.52-1.04) mg/dL Glucose 38 L* (74-99) mg/dL POC Glucose (mg/dL) (75-99) mg/dL Plasma Lactic Acid Myles 15.0 H* (0.7-2.0) mmol/L Calcium 7.7 L (8.4-10.2) mg/dL Total Bilirubin 6.3 H (0.2-1.3) mg/dL AST 6737 H (14-36) U/L ALT 2988 H (4-34) U/L Alkaline Phosphatase 203 H (38-126) U/L Troponin I (0.000-0.034) ng/mL Total Protein 4.4 L (6.3-8.2) g/dL Albumin 2.3 L (3.5-5.0) g/dL Urine Appearance (Clear) Urine Protein (Negative) Urine Glucose (UA) (Negative) Urine Blood (Negative) Ur Leukocyte Esterase (Negative) Urine RBC (0-5) /hpf Urine WBC (0-5) /hpf Urine WBC Clumps (None) /hpf Urine Bacteria (None) /hpf Urine Mucus (None) /hpf 12/16/19 12/16/19 12/16/19 Range/Units 05:20 05:20 07:27 WBC (3.8-10.6) k/uL MCHC (31.0-37.0) g/dL Plt Count (150-450) k/uL Neutrophils # (Manual) (1.3-7.7) k/uL Lymphocytes # (Manual) (1.0-4.8) k/uL Metamyelocytes # (Man) (0) k/uL Myelocytes # (Manual) (0) k/uL Nucleated RBCs (0-0) /100 WBC PT 25.9 H (9.0-12.0) sec INR 2.7 H (<1.2) ABG pH 7.33 L (7.35-7.45) ABG pCO2 34 L (35-45) mmHg ABG pO2 78 L (83-108) mmHg ABG HCO3 18 L (21-25) mmol/L ABG O2 Saturation 93.5 L (94-97) % Sodium (137-145) mmol/L Potassium (3.5-5.1) mmol/L Chloride (98-107) mmol/L Carbon Dioxide (22-30) mmol/L BUN (7-17) mg/dL Creatinine (0.52-1.04) mg/dL Glucose (74-99) mg/dL POC Glucose (mg/dL) (75-99) mg/dL Plasma Lactic Acid Myles 16.9 H* (0.7-2.0) mmol/L Calcium (8.4-10.2) mg/dL Total Bilirubin (0.2-1.3) mg/dL AST (14-36) U/L ALT (4-34) U/L Alkaline Phosphatase (38-126) U/L Troponin I (0.000-0.034) ng/mL Total Protein (6.3-8.2) g/dL Albumin (3.5-5.0) g/dL Urine Appearance (Clear) Urine Protein (Negative) Urine Glucose (UA) (Negative) Urine Blood (Negative) Ur Leukocyte Esterase (Negative) Urine RBC (0-5) /hpf Urine WBC (0-5) /hpf Urine WBC Clumps (None) /hpf Urine Bacteria (None) /hpf Urine Mucus (None) /hpf /15/20 Range/Units 07:42 WBC (3.8-10.6) k/uL MCHC (31.0-37.0) g/dL Plt Count (150-450) k/uL Neutrophils # (Manual) (1.3-7.7) k/uL Lymphocytes # (Manual) (1.0-4.8) k/uL Metamyelocytes # (Man) (0) k/uL Myelocytes # (Manual) (0) k/uL Nucleated RBCs (0-0) /100 WBC PT (9.0-12.0) sec INR (<1.2) ABG pH (7.35-7.45) ABG pCO2 (35-45) mmHg ABG pO2 (83-108) mmHg ABG HCO3 (21-25) mmol/L ABG O2 Saturation (94-97) % Sodium (137-145) mmol/L Potassium (3.5-5.1) mmol/L Chloride (98-107) mmol/L Carbon Dioxide (22-30) mmol/L BUN (7-17) mg/dL Creatinine (0.52-1.04) mg/dL Glucose (74-99) mg/dL POC Glucose (mg/dL) 163 H (75-99) mg/dL Plasma Lactic Acid Myles (0.7-2.0) mmol/L Calcium (8.4-10.2) mg/dL Total Bilirubin (0.2-1.3) mg/dL AST (14-36) U/L ALT (4-34) U/L Alkaline Phosphatase (38-126) U/L Troponin I (0.000-0.034) ng/mL Total Protein (6.3-8.2) g/dL Albumin (3.5-5.0) g/dL Urine Appearance (Clear) Urine Protein (Negative) Urine Glucose (UA) (Negative) Urine Blood (Negative) Ur Leukocyte Esterase (Negative) Urine RBC (0-5) /hpf Urine WBC (0-5) /hpf Urine WBC Clumps (None) /hpf Urine Bacteria (None) /hpf Urine Mucus (None) /hpf Microbiology - Last 24 Hours (Table) 12/15/19 20:45 Urine Culture - Preliminary Urine,Voided 12/15/19 20:48 Gram Stain - Preliminary Sputum Sputum Culture - Preliminary Assessment and Plan Assessment: 1. Acute hepatocellular injury who presented to the hospital with normal serum transaminases and is noted to have significant elevation of serum transaminases almost in the range of 5000 and 8000. This is consistent with severe ischemic hepatitis secondary to hypo-profusion from prolonged hypotension. She also developed coagulopathy which likely suggest acute liver failure. Family has decided to make the patient comfort care status. 2. Status post thyroidectomy 3 days ago on outpatient basis 3. Abdominal pain, nausea, vomiting that developed yesterday morning followed by severe hypotension and altered mental status. Rule out ischemic bowel. Dr. Rowe following the patient closely. CT angiogram and CT of the abdomen did not show any significant abnormalities. 4. History of atrial fibrillation on lquist, currently has been on hold. Plan: 1. Symptomatic and supportive care, patient has been made a no code and Comfort Care status 2. Avoid hepatotoxic medications 3. We will sign off at this time The impression and plan of care has been dictated as directed. Dr. Silvia Hammer I performed a history and examination of this patient, discussed the same with the dictator. I agree with the dictator's note ,documented as a scribe. Any additional findings or plans will be noted.
--- NOTE | 2019-12-16 12:55 | P.PN ---
Subjective Progress Note Date: 12/16/19 (delayed charting seen at 0845) Principal diagnosis: thyroid nodule Patient is an 84 yo CF with a hx of a fib treated with cardioversion now on xarelto and metoprolol, macular degeneration, and HTN who presented for elective left thyroidectomy for thyroid nodule with neck pressure. With complicated post op course. Overnight increasing pressor requirements and patient became anuric. Patient seen and examined. Sedated on vent. General: ill appearing, max distress, on vent, intubated, art line, central line Derm: incision with dressing in place over the neck Head: atraumatic, normocephalic, symmetric Eyes: pupils pinpoint, no lid lesions, anicteric sclera Mouth: no lip lesion, mucus membranes dry Cardiovascular: S1S2 irreg, no murmur, positive posterior tibial pulse bilateral, Lungs: Decreased bs bilateral, no rhonchi, no rales , no accessory muscle use Abdominal: + distended, soft, nontender to palpation, no guarding, no appreciable organomegaly, dark urine Ext: no gross muscle atrophy, 2+ edema, no contractures Neuro: sedated on vent and unresponsive Psych: Sedated on vent Hyperkalemia - Insulin, glucose, calcium gluconate - Family to come in this morning for goals of care discussion. If they do not want comfort measures then Lasix - On bicarb gtt. Hypoglycemia - Likely due to decreased gluconeogenesis from the liver with fulminate hepatic failure. - change 0.45 to D5 0.45, continue dextrose and bicarb. Shock liver, Severe Lactic acidosis, Multi organ system dysfunction, Coagulopathy, SUPRIYA - critical care recs - IVF with bicarb, follow lactic acid level - GI recs appreciated - nephro recs appreciated - Supprotive care - Follow CMP - Follow INR and give vitamin K as indicated - Live US results noted Probable Ischemic Bowel due to flow limiting aortic lesion - supportive care - gen surgery recs Acute metabolic encepahlopathy - Supportive care Left arm weakness, improved with hx of chronic weakness - possible acute CVA - Once stable repeat head CT - Eliquis on hold with coagulopathy - neuro recs appreciated - CT brain without acute process - CT head and neck with bilateral carotid stenosis Right pulm nodule with large right sided pleural effusion - Pulm recs Carotid stenosis bilateral - outpatient vascular surgery consult if survives this hospital saty Thyroid nodule - s/p left thyroidectomy - pain control - antiemetics A fib with RVR - cardizem gtt - eliquis on hold - cardio recs - tele Cardiomyopathy EF 25% - likely due to stress - cardio recs - tele - hypotesive with SUPRIYA no BB or ACEI Chronic: HTN Macular degeneration Adrenal insufficiency ruled out with elevated cortisol level Myxedema coma ruled out Prognosis poor. GOals of care conversation today. Thank you for allowing us to participate in the care of this pleasant patient. Do not hesitate to contact us with questions. Someone can be reached from the [facility] hospitalist group all hours of the day at [phone] or via [employer]. Objective - Vital Signs Vital signs: Vital Signs Temp 97.3 F L 12/16/19 08:00 Pulse 66 12/16/19 10:00 Resp 30 H 12/16/19 10:00 BP 75/38 12/16/19 10:00 Pulse Ox 93 L 12/16/19 10:00 Intake & Output 12/15/19 12/16/19 12/16/19 18:59 06:59 18:59 Intake Total 2423.959 2357.899 933.347 Output Total 71 201 0 Balance 2352.959 2156.899 933.347 Weight 78.5 kg Intake: IV 1917 1761 721 0.9 flush 3 Dextrose 5% in Water 1, 900 825 300 000 ml @ 75 mls/hr IV . [id number] [facility] with Sodium Bicarb (1 Meq/ml) 150 ml Rx#:[id number] Dextrose 5%-0.45% NaCl 1, 825 150 000 ml @ 75 mls/hr IV . [id number] [facility] Rx#:[id number] Meropenem 1 gm In Sodium 100 Chloride 0.9% 100 ml @ 200 mls/hr IVPB ONCE ONE Rx#:[id number] Meropenem 1 gm In Sodium 100 Chloride 0.9% 100 ml @ 33 .333 mls/hr IVPB Q12HR [facility] Rx#:[id number] Phytonadione 10 mg In 50 Sodium Chloride 0.9% 50 ml @ 100 mls/hr IVPB ONCE STA Rx#:[id number] Pressure Bags 39 36 21 Sodium Chloride 0.45% 1, 750 300 000 ml @ 75 mls/hr IV . [id number] ONE Rx#:[id number] Intake, IV Titration 203.959 257.899 212.347 Amount Diltiazem 125 mg In 7.667 117.333 Sodium Chloride 0.9% 100 ml @ Per Protocol IV .Q0M [facility] Rx#:[id number] Morphine Sulfate (100 mg/ 0.187 2 ml) 100 mg In Sodium Chloride 0.9% 100 ml @ 1 MG/HR 1.02 mls/hr IV . Q24H [facility] Rx#:[id number] Norepinephrine 32 mg In 90.874 100.056 51.181 Sodium Chloride 0.9% 218 ml @ 0.05 MCG/KG/MIN 1. 512 mls/hr IV .Q24H [facility] Rx#:[id number] propofoL 1,000 mg In 105.418 157.843 43.646 Empty Bag 1 bag @ Titrate IV .Q0M [facility] Rx#: [id number] Blood Product 303 339 Ffp 24 Cpd Unit 0 339 [id number] Ffp 24 Cpd Unit 303 [id number] Output: Gastric Drainage 150 Urine 71 51 0 Other: Voiding Method Indwelling Catheter Indwelling Catheter Indwelling Catheter # Voids 0 ABP, PAP, CO, CI - Last Documented Arterial Blood Pressure 109/34 - Labs CBC & Chem 7: 12/16/19 05:20 12/16/19 05:20 Labs: Abnormal Lab Results - Last 24 Hours (Table) 12/15/19 12/15/19 12/15/19 Range/Units 04:45 14:00 14:04 WBC (3.8-10.6) k/uL MCHC (31.0-37.0) g/dL Plt Count (150-450) k/uL Neutrophils # (Manual) (1.3-7.7) k/uL Lymphocytes # (Manual) (1.0-4.8) k/uL Metamyelocytes # (Man) (0) k/uL Myelocytes # (Manual) (0) k/uL Nucleated RBCs (0-0) /100 WBC PT (9.0-12.0) sec INR (<1.2) ABG pH (7.35-7.45) ABG pCO2 (35-45) mmHg ABG pO2 (83-108) mmHg ABG HCO3 (21-25) mmol/L ABG O2 Saturation (94-97) % Sodium (137-145) mmol/L Potassium (3.5-5.1) mmol/L Chloride (98-107) mmol/L Carbon Dioxide (22-30) mmol/L BUN (7-17) mg/dL Creatinine (0.52-1.04) mg/dL Glucose (74-99) mg/dL POC Glucose (mg/dL) 120 H (75-99) mg/dL Plasma Lactic Acid Myles 12.1 H* (0.7-2.0) mmol/L Calcium (8.4-10.2) mg/dL Total Bilirubin (0.2-1.3) mg/dL AST (14-36) U/L ALT (4-34) U/L Alkaline Phosphatase (38-126) U/L Troponin I 0.380 H* (0.000-0.034) ng/mL Total Protein (6.3-8.2) g/dL Albumin (3.5-5.0) g/dL Urine Appearance (Clear) Urine Protein (Negative) Urine Glucose (UA) (Negative) Urine Blood (Negative) Ur Leukocyte Esterase (Negative) Urine RBC (0-5) /hpf Urine WBC (0-5) /hpf Urine WBC Clumps (None) /hpf Urine Bacteria (None) /hpf Urine Mucus (None) /hpf 12/15/19 12/15/19 12/15/19 Range/Units 17:00 17:00 20:45 WBC (3.8-10.6) k/uL MCHC (31.0-37.0) g/dL Plt Count (150-450) k/uL Neutrophils # (Manual) (1.3-7.7) k/uL Lymphocytes # (Manual) (1.0-4.8) k/uL Metamyelocytes # (Man) (0) k/uL Myelocytes # (Manual) (0) k/uL Nucleated RBCs (0-0) /100 WBC PT (9.0-12.0) sec INR (<1.2) ABG pH (7.35-7.45) ABG pCO2 (35-45) mmHg ABG pO2 (83-108) mmHg ABG HCO3 (21-25) mmol/L ABG O2 Saturation (94-97) % Sodium (137-145) mmol/L Potassium (3.5-5.1) mmol/L Chloride (98-107) mmol/L Carbon Dioxide (22-30) mmol/L BUN (7-17) mg/dL Creatinine (0.52-1.04) mg/dL Glucose (74-99) mg/dL POC Glucose (mg/dL) (75-99) mg/dL Plasma Lactic Acid Myles 12.4 H* (0.7-2.0) mmol/L Calcium (8.4-10.2) mg/dL Total Bilirubin (0.2-1.3) mg/dL AST (14-36) U/L ALT (4-34) U/L Alkaline Phosphatase (38-126) U/L Troponin I 0.604 H* (0.000-0.034) ng/mL Total Protein (6.3-8.2) g/dL Albumin (3.5-5.0) g/dL Urine Appearance Turbid H (Clear) Urine Protein 2+ H (Negative) Urine Glucose (UA) Trace H (Negative) Urine Blood Large H (Negative) Ur Leukocyte Esterase Large H (Negative) Urine RBC 162 H (0-5) /hpf Urine WBC 167 H (0-5) /hpf Urine WBC Clumps Rare H (None) /hpf Urine Bacteria Rare H (None) /hpf Urine Mucus Rare H (None) /hpf 12/15/19 12/15/19 12/15/19 Range/Units 21:13 21:15 23:25 WBC (3.8-10.6) k/uL MCHC (31.0-37.0) g/dL Plt Count (150-450) k/uL Neutrophils # (Manual) (1.3-7.7) k/uL Lymphocytes # (Manual) (1.0-4.8) k/uL Metamyelocytes # (Man) (0) k/uL Myelocytes # (Manual) (0) k/uL Nucleated RBCs (0-0) /100 WBC PT (9.0-12.0) sec INR (<1.2) ABG pH (7.35-7.45) ABG pCO2 (35-45) mmHg ABG pO2 (83-108) mmHg ABG HCO3 (21-25) mmol/L ABG O2 Saturation (94-97) % Sodium (137-145) mmol/L Potassium (3.5-5.1) mmol/L Chloride (98-107) mmol/L Carbon Dioxide (22-30) mmol/L BUN (7-17) mg/dL Creatinine (0.52-1.04) mg/dL Glucose (74-99) mg/dL POC Glucose (mg/dL) 128 H (75-99) mg/dL Plasma Lactic Acid Myles 13.2 H* 13.7 H* (0.7-2.0) mmol/L Calcium (8.4-10.2) mg/dL Total Bilirubin (0.2-1.3) mg/dL AST (14-36) U/L ALT (4-34) U/L Alkaline Phosphatase (38-126) U/L Troponin I (0.000-0.034) ng/mL Total Protein (6.3-8.2) g/dL Albumin (3.5-5.0) g/dL Urine Appearance (Clear) Urine Protein (Negative) Urine Glucose (UA) (Negative) Urine Blood (Negative) Ur Leukocyte Esterase (Negative) Urine RBC (0-5) /hpf Urine WBC (0-5) /hpf Urine WBC Clumps (None) /hpf Urine Bacteria (None) /hpf Urine Mucus (None) /hpf 12/16/19 12/16/19 12/16/19 Range/Units 02:35 05:20 05:20 WBC 22.0 H (3.8-10.6) k/uL MCHC 30.5 L (31.0-37.0) g/dL Plt Count 103 L (150-450) k/uL Neutrophils # (Manual) 19.50 H (1.3-7.7) k/uL Lymphocytes # (Manual) 0.66 L (1.0-4.8) k/uL Metamyelocytes # (Man) 1.54 H (0) k/uL Myelocytes # (Manual) 0.22 H (0) k/uL Nucleated RBCs 2 H (0-0) /100 WBC PT (9.0-12.0) sec INR (<1.2) ABG pH (7.35-7.45) ABG pCO2 (35-45) mmHg ABG pO2 (83-108) mmHg ABG HCO3 (21-25) mmol/L ABG O2 Saturation (94-97) % Sodium 131 L (137-145) mmol/L Potassium 5.6 H (3.5-5.1) mmol/L Chloride 90 L (98-107) mmol/L Carbon Dioxide 19 L (22-30) mmol/L BUN 28 H (7-17) mg/dL Creatinine 1.85 H (0.52-1.04) mg/dL Glucose 38 L* (74-99) mg/dL POC Glucose (mg/dL) (75-99) mg/dL Plasma Lactic Acid Myles 15.0 H* (0.7-2.0) mmol/L Calcium 7.7 L (8.4-10.2) mg/dL Total Bilirubin 6.3 H (0.2-1.3) mg/dL AST 6737 H (14-36) U/L ALT 2988 H (4-34) U/L Alkaline Phosphatase 203 H (38-126) U/L Troponin I (0.000-0.034) ng/mL Total Protein 4.4 L (6.3-8.2) g/dL Albumin 2.3 L (3.5-5.0) g/dL Urine Appearance (Clear) Urine Protein (Negative) Urine Glucose (UA) (Negative) Urine Blood (Negative) Ur Leukocyte Esterase (Negative) Urine RBC (0-5) /hpf Urine WBC (0-5) /hpf Urine WBC Clumps (None) /hpf Urine Bacteria (None) /hpf Urine Mucus (None) /hpf 12/16/19 12/16/19 12/16/19 Range/Units 05:20 05:20 07:27 WBC (3.8-10.6) k/uL MCHC (31.0-37.0) g/dL Plt Count (150-450) k/uL Neutrophils # (Manual) (1.3-7.7) k/uL Lymphocytes # (Manual) (1.0-4.8) k/uL Metamyelocytes # (Man) (0) k/uL Myelocytes # (Manual) (0) k/uL Nucleated RBCs (0-0) /100 WBC PT 25.9 H (9.0-12.0) sec INR 2.7 H (<1.2) ABG pH 7.33 L (7.35-7.45) ABG pCO2 34 L (35-45) mmHg ABG pO2 78 L (83-108) mmHg ABG HCO3 18 L (21-25) mmol/L ABG O2 Saturation 93.5 L (94-97) % Sodium (137-145) mmol/L Potassium (3.5-5.1) mmol/L Chloride (98-107) mmol/L Carbon Dioxide (22-30) mmol/L BUN (7-17) mg/dL Creatinine (0.52-1.04) mg/dL Glucose (74-99) mg/dL POC Glucose (mg/dL) (75-99) mg/dL Plasma Lactic Acid Myles 16.9 H* (0.7-2.0) mmol/L Calcium (8.4-10.2) mg/dL Total Bilirubin (0.2-1.3) mg/dL AST (14-36) U/L ALT (4-34) U/L Alkaline Phosphatase (38-126) U/L Troponin I (0.000-0.034) ng/mL Total Protein (6.3-8.2) g/dL Albumin (3.5-5.0) g/dL Urine Appearance (Clear) Urine Protein (Negative) Urine Glucose (UA) (Negative) Urine Blood (Negative) Ur Leukocyte Esterase (Negative) Urine RBC (0-5) /hpf Urine WBC (0-5) /hpf Urine WBC Clumps (None) /hpf Urine Bacteria (None) /hpf Urine Mucus (None) /hpf 10/15/20 Range/Units 07:42 WBC (3.8-10.6) k/uL MCHC (31.0-37.0) g/dL Plt Count (150-450) k/uL Neutrophils # (Manual) (1.3-7.7) k/uL Lymphocytes # (Manual) (1.0-4.8) k/uL Metamyelocytes # (Man) (0) k/uL Myelocytes # (Manual) (0) k/uL Nucleated RBCs (0-0) /100 WBC PT (9.0-12.0) sec INR (<1.2) ABG pH (7.35-7.45) ABG pCO2 (35-45) mmHg ABG pO2 (83-108) mmHg ABG HCO3 (21-25) mmol/L ABG O2 Saturation (94-97) % Sodium (137-145) mmol/L Potassium (3.5-5.1) mmol/L Chloride (98-107) mmol/L Carbon Dioxide (22-30) mmol/L BUN (7-17) mg/dL Creatinine (0.52-1.04) mg/dL Glucose (74-99) mg/dL POC Glucose (mg/dL) 163 H (75-99) mg/dL Plasma Lactic Acid Myles (0.7-2.0) mmol/L Calcium (8.4-10.2) mg/dL Total Bilirubin (0.2-1.3) mg/dL AST (14-36) U/L ALT (4-34) U/L Alkaline Phosphatase (38-126) U/L Troponin I (0.000-0.034) ng/mL Total Protein (6.3-8.2) g/dL Albumin (3.5-5.0) g/dL Urine Appearance (Clear) Urine Protein (Negative) Urine Glucose (UA) (Negative) Urine Blood (Negative) Ur Leukocyte Esterase (Negative) Urine RBC (0-5) /hpf Urine WBC (0-5) /hpf Urine WBC Clumps (None) /hpf Urine Bacteria (None) /hpf Urine Mucus (None) /hpf Microbiology - Last 24 Hours (Table) 12/15/19 20:45 Urine Culture - Preliminary Urine,Voided 12/15/19 20:48 Gram Stain - Preliminary Sputum Sputum Culture - Preliminary
--- NOTE | 2019-12-16 13:07 | PN ---
PROGRESS NOTE Patient is seen for followup for acute kidney injury. She has been in severe shock, maintained on high doses of Levophed and patient has also been hypoglycemic. This morning she remains on the vent, significantly hypotensive. FiO2 is at 50%. No urine output. It appears that family is deciding to proceed with comfort care measures. Patient was examined today. Blood pressure was 75/38, heart rate 66 per minute. She is on the vent. Abdomen is soft. The breath sounds are heard bilaterally. Lower extremity shows edema. LABS: Reviewed. Sodium 131, potassium 5.6, chloride 90. CO2 is 19, BUN 28, creatinine 1.85, blood sugar was 38. Lactic acid 16.9. ASSESSMENT: 1. Acute kidney injury, second way p ischemic ATN and shock, currently oliguric. 2. Hyperkalemia associated with acute kidney injury. 3. Severe hypotension postoperatively, maintained on high doses of steroids. 4. Hypoxic respiratory failure. 5. Status post left thyroidectomy. 6. Atrial fibrillation with RVR. 7. Cardiomyopathy, ejection fraction 25%. PLAN: Agree with comfort care measures. MMODL / IJN: [id number] /
--- NOTE | 2019-12-16 13:16 | P.PN ---
Subjective HISTORY OF PRESENTING ILLNESS This is a pleasant 84-year-old female past medical history significant for chronic persistent atrial fibrillation status post unsuccessful cardioversion, hypertension and former nicotine dependence. She follows in the office with Dr. Sethi. Pt is seen and examined laying in bed on mechanical ventilation with bear hugger in place. Family is at the bedside and has decided on comfort care measures. Blood pressure per arterial line 109/41 heart rate 70. laboratory data reviewed, pH 7.33, pCO2 34, pO2 78, bicarbonate 18, INR 2.7, sodium 131, potassium 5.6, creatinine 1.85, WBC 22, hemoglobin 13.3 and platelets 103. Currently maintained on Cardizem infusion. PHYSICAL EXAMINATION CONSTITUTIONAL: Maintained on mechanical ventilation HEENT: Head is normocephalic. Mucous membranes of the mouth are moist. No JVD. Bilateral carotid bruit auscultated. CHEST EXAMINATION: Lungs are clear to auscultation. No chest wall tenderness is noted on palpation or with deep breathing. Diminished bilaterally. HEART EXAMINATION: Irregular rate and rhythm. S1, S2 heard. Systolic ejection murmur at the left sternal border, no gallops or rub. EXTREMITIES: 1+ peripheral pulses, trace lower extremity non-pitting edema. ASSESSMENT Acute hypotension and hypothermia, suspect shock secondary to acute adrenal crisis Acute systolic heart failure Transaminitis Liver failure Suspect ischemic bowel, could be secondary to embolic phenomenon being off anti- coagulation since 12/07. Left thyroidectomy, postoperative day #3 Pleural effusions bilaterally Chronic persistent atrial fibrillation previously maintained on Eliquis Hypertension Lactic acidosis PLAN Provided supportive care to the family who is tearful at the bedside. Prognosis guarded and comfort care is also recommended from a cardiac standpoint. Nurse Practitioner note has been reviewed, I agree with a documented findings and plan of care. Patient was seen and examined. Objective - Vital Signs Vital signs: Vital Signs Temp 97.3 F L 12/16/19 08:00 Pulse 66 12/16/19 10:00 Resp 30 H 12/16/19 10:00 BP 75/38 12/16/19 10:00 Pulse Ox 93 L 12/16/19 10:00 Intake & Output 12/15/19 12/16/19 12/16/19 18:59 06:59 18:59 Intake Total 2423.959 2357.899 933.347 Output Total 71 201 0 Balance 2352.959 2156.899 933.347 Weight 78.5 kg Intake: IV 1917 1761 721 0.9 flush 3 Dextrose 5% in Water 1, 900 825 300 000 ml @ 75 mls/hr IV . [id number] TONY with Sodium Bicarb (1 Meq/ml) 150 ml Rx#:[id number] Dextrose 5%-0.45% NaCl 1, 825 150 000 ml @ 75 mls/hr IV . [id number] [facility] Rx#:[id number] Meropenem 1 gm In Sodium 100 Chloride 0.9% 100 ml @ 200 mls/hr IVPB ONCE ONE Rx#:[id number] Meropenem 1 gm In Sodium 100 Chloride 0.9% 100 ml @ 33 .333 mls/hr IVPB Q12HR [facility] Rx#:[id number] Phytonadione 10 mg In 50 Sodium Chloride 0.9% 50 ml @ 100 mls/hr IVPB ONCE STA Rx#:[id number] Pressure Bags 39 36 21 Sodium Chloride 0.45% 1, 750 300 000 ml @ 75 mls/hr IV . [id number] ONE Rx#:[id number] Intake, IV Titration 203.959 257.899 212.347 Amount Diltiazem 125 mg In 7.667 117.333 Sodium Chloride 0.9% 100 ml @ Per Protocol IV .Q0M [facility] Rx#:[id number] Morphine Sulfate (100 mg/ 0.187 2 ml) 100 mg In Sodium Chloride 0.9% 100 ml @ 1 MG/HR 1.02 mls/hr IV . Q24H [facility] Rx#:[id number] Norepinephrine 32 mg In 90.874 100.056 51.181 Sodium Chloride 0.9% 218 ml @ 0.05 MCG/KG/MIN 1. 512 mls/hr IV .Q24H [facility] Rx#:[id number] propofoL 1,000 mg In 105.418 157.843 43.646 Empty Bag 1 bag @ Titrate IV .Q0M [facility] Rx#: [id number] Blood Product 303 339 Ffp 24 Cpd Unit 0 339 [id number] Ffp 24 Cpd Unit 303 [id number] Output: Gastric Drainage 150 Urine 71 51 0 Other: Voiding Method Indwelling Catheter Indwelling Catheter Indwelling Catheter # Voids 0 ABP, PAP, CO, CI - Last Documented Arterial Blood Pressure 109/34 - Labs CBC & Chem 7: 12/16/19 05:20 12/16/19 05:20 Labs: Abnormal Lab Results - Last 24 Hours (Table) 12/15/19 12/15/19 12/15/19 Range/Units 04:45 14:00 14:04 WBC (3.8-10.6) k/uL MCHC (31.0-37.0) g/dL Plt Count (150-450) k/uL Neutrophils # (Manual) (1.3-7.7) k/uL Lymphocytes # (Manual) (1.0-4.8) k/uL Metamyelocytes # (Man) (0) k/uL Myelocytes # (Manual) (0) k/uL Nucleated RBCs (0-0) /100 WBC PT (9.0-12.0) sec INR (<1.2) ABG pH (7.35-7.45) ABG pCO2 (35-45) mmHg ABG pO2 (83-108) mmHg ABG HCO3 (21-25) mmol/L ABG O2 Saturation (94-97) % Sodium (137-145) mmol/L Potassium (3.5-5.1) mmol/L Chloride (98-107) mmol/L Carbon Dioxide (22-30) mmol/L BUN (7-17) mg/dL Creatinine (0.52-1.04) mg/dL Glucose (74-99) mg/dL POC Glucose (mg/dL) 120 H (75-99) mg/dL Plasma Lactic Acid Myles 12.1 H* (0.7-2.0) mmol/L Calcium (8.4-10.2) mg/dL Total Bilirubin (0.2-1.3) mg/dL AST (14-36) U/L ALT (4-34) U/L Alkaline Phosphatase (38-126) U/L Troponin I 0.380 H* (0.000-0.034) ng/mL Total Protein (6.3-8.2) g/dL Albumin (3.5-5.0) g/dL Urine Appearance (Clear) Urine Protein (Negative) Urine Glucose (UA) (Negative) Urine Blood (Negative) Ur Leukocyte Esterase (Negative) Urine RBC (0-5) /hpf Urine WBC (0-5) /hpf Urine WBC Clumps (None) /hpf Urine Bacteria (None) /hpf Urine Mucus (None) /hpf 12/15/19 12/15/19 12/15/19 Range/Units 17:00 17:00 20:45 WBC (3.8-10.6) k/uL MCHC (31.0-37.0) g/dL Plt Count (150-450) k/uL Neutrophils # (Manual) (1.3-7.7) k/uL Lymphocytes # (Manual) (1.0-4.8) k/uL Metamyelocytes # (Man) (0) k/uL Myelocytes # (Manual) (0) k/uL Nucleated RBCs (0-0) /100 WBC PT (9.0-12.0) sec INR (<1.2) ABG pH (7.35-7.45) ABG pCO2 (35-45) mmHg ABG pO2 (83-108) mmHg ABG HCO3 (21-25) mmol/L ABG O2 Saturation (94-97) % Sodium (137-145) mmol/L Potassium (3.5-5.1) mmol/L Chloride (98-107) mmol/L Carbon Dioxide (22-30) mmol/L BUN (7-17) mg/dL Creatinine (0.52-1.04) mg/dL Glucose (74-99) mg/dL POC Glucose (mg/dL) (75-99) mg/dL Plasma Lactic Acid Myles 12.4 H* (0.7-2.0) mmol/L Calcium (8.4-10.2) mg/dL Total Bilirubin (0.2-1.3) mg/dL AST (14-36) U/L ALT (4-34) U/L Alkaline Phosphatase (38-126) U/L Troponin I 0.604 H* (0.000-0.034) ng/mL Total Protein (6.3-8.2) g/dL Albumin (3.5-5.0) g/dL Urine Appearance Turbid H (Clear) Urine Protein 2+ H (Negative) Urine Glucose (UA) Trace H (Negative) Urine Blood Large H (Negative) Ur Leukocyte Esterase Large H (Negative) Urine RBC 162 H (0-5) /hpf Urine WBC 167 H (0-5) /hpf Urine WBC Clumps Rare H (None) /hpf Urine Bacteria Rare H (None) /hpf Urine Mucus Rare H (None) /hpf 12/15/19 12/15/19 12/15/19 Range/Units 21:13 21:15 23:25 WBC (3.8-10.6) k/uL MCHC (31.0-37.0) g/dL Plt Count (150-450) k/uL Neutrophils # (Manual) (1.3-7.7) k/uL Lymphocytes # (Manual) (1.0-4.8) k/uL Metamyelocytes # (Man) (0) k/uL Myelocytes # (Manual) (0) k/uL Nucleated RBCs (0-0) /100 WBC PT (9.0-12.0) sec INR (<1.2) ABG pH (7.35-7.45) ABG pCO2 (35-45) mmHg ABG pO2 (83-108) mmHg ABG HCO3 (21-25) mmol/L ABG O2 Saturation (94-97) % Sodium (137-145) mmol/L Potassium (3.5-5.1) mmol/L Chloride (98-107) mmol/L Carbon Dioxide (22-30) mmol/L BUN (7-17) mg/dL Creatinine (0.52-1.04) mg/dL Glucose (74-99) mg/dL POC Glucose (mg/dL) 128 H (75-99) mg/dL Plasma Lactic Acid Myles 13.2 H* 13.7 H* (0.7-2.0) mmol/L Calcium (8.4-10.2) mg/dL Total Bilirubin (0.2-1.3) mg/dL AST (14-36) U/L ALT (4-34) U/L Alkaline Phosphatase (38-126) U/L Troponin I (0.000-0.034) ng/mL Total Protein (6.3-8.2) g/dL Albumin (3.5-5.0) g/dL Urine Appearance (Clear) Urine Protein (Negative) Urine Glucose (UA) (Negative) Urine Blood (Negative) Ur Leukocyte Esterase (Negative) Urine RBC (0-5) /hpf Urine WBC (0-5) /hpf Urine WBC Clumps (None) /hpf Urine Bacteria (None) /hpf Urine Mucus (None) /hpf 12/16/19 12/16/19 12/16/19 Range/Units 02:35 05:20 05:20 WBC 22.0 H (3.8-10.6) k/uL MCHC 30.5 L (31.0-37.0) g/dL Plt Count 103 L (150-450) k/uL Neutrophils # (Manual) 19.50 H (1.3-7.7) k/uL Lymphocytes # (Manual) 0.66 L (1.0-4.8) k/uL Metamyelocytes # (Man) 1.54 H (0) k/uL Myelocytes # (Manual) 0.22 H (0) k/uL Nucleated RBCs 2 H (0-0) /100 WBC PT (9.0-12.0) sec INR (<1.2) ABG pH (7.35-7.45) ABG pCO2 (35-45) mmHg ABG pO2 (83-108) mmHg ABG HCO3 (21-25) mmol/L ABG O2 Saturation (94-97) % Sodium 131 L (137-145) mmol/L Potassium 5.6 H (3.5-5.1) mmol/L Chloride 90 L (98-107) mmol/L Carbon Dioxide 19 L (22-30) mmol/L BUN 28 H (7-17) mg/dL Creatinine 1.85 H (0.52-1.04) mg/dL Glucose 38 L* (74-99) mg/dL POC Glucose (mg/dL) (75-99) mg/dL Plasma Lactic Acid Myles 15.0 H* (0.7-2.0) mmol/L Calcium 7.7 L (8.4-10.2) mg/dL Total Bilirubin 6.3 H (0.2-1.3) mg/dL AST 6737 H (14-36) U/L ALT 2988 H (4-34) U/L Alkaline Phosphatase 203 H (38-126) U/L Troponin I (0.000-0.034) ng/mL Total Protein 4.4 L (6.3-8.2) g/dL Albumin 2.3 L (3.5-5.0) g/dL Urine Appearance (Clear) Urine Protein (Negative) Urine Glucose (UA) (Negative) Urine Blood (Negative) Ur Leukocyte Esterase (Negative) Urine RBC (0-5) /hpf Urine WBC (0-5) /hpf Urine WBC Clumps (None) /hpf Urine Bacteria (None) /hpf Urine Mucus (None) /hpf 12/16/19 12/16/19 12/16/19 Range/Units 05:20 05:20 07:27 WBC (3.8-10.6) k/uL MCHC (31.0-37.0) g/dL Plt Count (150-450) k/uL Neutrophils # (Manual) (1.3-7.7) k/uL Lymphocytes # (Manual) (1.0-4.8) k/uL Metamyelocytes # (Man) (0) k/uL Myelocytes # (Manual) (0) k/uL Nucleated RBCs (0-0) /100 WBC PT 25.9 H (9.0-12.0) sec INR 2.7 H (<1.2) ABG pH 7.33 L (7.35-7.45) ABG pCO2 34 L (35-45) mmHg ABG pO2 78 L (83-108) mmHg ABG HCO3 18 L (21-25) mmol/L ABG O2 Saturation 93.5 L (94-97) % Sodium (137-145) mmol/L Potassium (3.5-5.1) mmol/L Chloride (98-107) mmol/L Carbon Dioxide (22-30) mmol/L BUN (7-17) mg/dL Creatinine (0.52-1.04) mg/dL Glucose (74-99) mg/dL POC Glucose (mg/dL) (75-99) mg/dL Plasma Lactic Acid Myles 16.9 H* (0.7-2.0) mmol/L Calcium (8.4-10.2) mg/dL Total Bilirubin (0.2-1.3) mg/dL AST (14-36) U/L ALT (4-34) U/L Alkaline Phosphatase (38-126) U/L Troponin I (0.000-0.034) ng/mL Total Protein (6.3-8.2) g/dL Albumin (3.5-5.0) g/dL Urine Appearance (Clear) Urine Protein (Negative) Urine Glucose (UA) (Negative) Urine Blood (Negative) Ur Leukocyte Esterase (Negative) Urine RBC (0-5) /hpf Urine WBC (0-5) /hpf Urine WBC Clumps (None) /hpf Urine Bacteria (None) /hpf Urine Mucus (None) /hpf 12/16/19 Range/Units 07:42 WBC (3.8-10.6) k/uL MCHC (31.0-37.0) g/dL Plt Count (150-450) k/uL Neutrophils # (Manual) (1.3-7.7) k/uL Lymphocytes # (Manual) (1.0-4.8) k/uL Metamyelocytes # (Man) (0) k/uL Myelocytes # (Manual) (0) k/uL Nucleated RBCs (0-0) /100 WBC PT (9.0-12.0) sec INR (<1.2) ABG pH (7.35-7.45) ABG pCO2 (35-45) mmHg ABG pO2 (83-108) mmHg ABG HCO3 (21-25) mmol/L ABG O2 Saturation (94-97) % Sodium (137-145) mmol/L Potassium (3.5-5.1) mmol/L Chloride (98-107) mmol/L Carbon Dioxide (22-30) mmol/L BUN (7-17) mg/dL Creatinine (0.52-1.04) mg/dL Glucose (74-99) mg/dL POC Glucose (mg/dL) 163 H (75-99) mg/dL Plasma Lactic Acid Myles (0.7-2.0) mmol/L Calcium (8.4-10.2) mg/dL Total Bilirubin (0.2-1.3) mg/dL AST (14-36) U/L ALT (4-34) U/L Alkaline Phosphatase (38-126) U/L Troponin I (0.000-0.034) ng/mL Total Protein (6.3-8.2) g/dL Albumin (3.5-5.0) g/dL Urine Appearance (Clear) Urine Protein (Negative) Urine Glucose (UA) (Negative) Urine Blood (Negative) Ur Leukocyte Esterase (Negative) Urine RBC (0-5) /hpf Urine WBC (0-5) /hpf Urine WBC Clumps (None) /hpf Urine Bacteria (None) /hpf Urine Mucus (None) /hpf Microbiology - Last 24 Hours (Table) 12/15/19 20:45 Urine Culture - Preliminary Urine,Voided 12/15/19 20:48 Gram Stain - Preliminary Sputum Sputum Culture - Preliminary
[2019-12-16 14:04] LABS: Hepatitis A Antibody IgM Non-Reactive (Non-Reactive); Hepatitis B Core IgM Non-Reactive (Non-Reactive); Hepatitis B Surface Antigen Non-Reactive (Non-Reactive); Hepatitis C IgG Antibody Non-Reactive (Non-Reactive)
--- NOTE | 2019-12-16 15:58 | P.PN ---
Subjective Progress Note Date: 12/16/19 Principal diagnosis: Acute hypotension, rule out shock related to adrenal insufficiency, rule out ischemic bowel with lactic acidosis 84-year-old white female patient of Dr. Freed, who came in on 12/13/2019 for left thyroidectomy for history of large left thyroid nodule measuring 4 cm. The thyroid nodule was causing some compressive symptoms. the nodule was discovered during workup for abnormal thyroid labs in May. Patient had the new onset atrial fibrillation in August 2019. Patient had a thyroid uptake scan, thyroid ultrasound, and thyroid biopsy which was benign. 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 patient was admitted to medical surgical floor following her procedure, today is postoperative day 1, and early in the morning "stroke was called for symptoms of left arm weakness, patient was also hypoglycemic, she was given an amp of 50% dextrose. Brain CT without contrast revealed atrophy with chronic appearing periventricular and deep white matter ischemic type changes.angiography CT showed bilateral internal carotid artery origins were narrowing greater than 70%, and a 1.7 cm nodule adjacent to moderate right pleural effusion within the right upper lung field. on today's labs her white count is elevated at 15.3, patient had evidence of acute kidney injury, with a rising creatinine, potassium of 5.8, and evidence of significantly abnormal LFTs, with acute rise from previous labs earlier in the day. AST was up to 736, ALT was 307, alkaline phosphatase was 145. it is unclear whether the patient was experiencing hyp otension during the case or during the recovery period. Nevertheless throughout the day today her mentation had worsened, her blood pressures a very marginal, patient developed hypothermia with a temp of 93F rectally, she is receiving IV hydration with D5 half-normal saline at a rate of 125 an hour, patient is poorly responsive on today's exam, we were asked to see the patient initially for eval uation of large right-sided pleural effusion seen on CT of abdomen and pelvis obtained for the reason of abdominal pain. There was extensive vascular calcification within the aorta at the level of the diaphragm, there was vascular calcifications within the bilateral kidneys, small amount of free fluid within the pelvis, and small amount of air within the right atrium. During her evaluation and from the discussion with the attending physician it is clear that patient has deteriorated significantly on her postoperative day 1, is a concern for acute adrenal crisis in view of the surgery. She has significant and multiple lab abnormalities, level of consciousness is poor, we will obtain a stat blood gas, we will obtain a barium in the intensive care unit, and discussed the plan with the attending physician in the family were agreeable. On 12/15/2019 patient seen in follow-up in the intensive care unit. Yesterday patient was emergently transferred to the intensive care for deteriorating clinical status, acute hypotension requiring fluid resuscitation, and vasopressor support, patient was emergently intubated and placed on mechanical ventilation. Patient's anticoagulation had to be placed on hold in view of significant blood-tinged output from the NG tube, and there was concern for a GI bleeding. However her hemoglobin did not drop significantly from her baseline, and is at 13.2 on today's labs, white blood cell count 15.4, INR is 3.6, renal profile is relatively stable, BUN 27 and creatinine is 1.5, lactic acid remained elevated despite the fluid resuscitation, and remains at 12.3 on today's labs. Liver enzymes continued to trend up, and AST is 8644, ALT is 3023, and alk phos is 138, total bilirubin is 2.9, triglycerides of 238. Patient's random cortisol levels came back at greater than 123 however this was obtained after the stress doses of hydrocortisone. Liver ultrasound revealed common bile duct dilation of 12 mm, no cholelithiasis, findings may represent choledocholithiasis or stricture, with the recommendation for MRCP. He did not heterogeneous and diff usely hyperechoic liver findings likely representing diffuse hepatocellular process such as hepatitis and mild right renal atrophy. Patient remains on mechanical ventilator, current vent settings assist control mode of ventilation with a rate of 16, tidal vital 350, FiO2 of 60%, and PEEP of 5, this morning his blood gases showed pO2 of 99, pCO2 38, and pH of 7.46. Patient is on maintenance IV fluids with D5 half-normal saline at a rate of 75 ML per hour, bicarbonate infusion at 150 ML per hour, patient came, tachycardic, she remains in atrial fibrillation, Cardizem drip was added currently infusing at a rate of 10 mg per hour by cardiology, patient remains off anticoagulation, admitted fact patient's INR today is 3.6, she will receive 10 mg of vitamin K, and 2 units of fresh frozen plasma. Patient is receiving sedation and informed department and currently at 30 mics per kilo per minute. Today's chest x-ray shows pulmonary interstitial edema mildly decreased compared to yesterday's exam, and unchanged bilateral pleural effusions. Nephrology has been consulted for acute kidney in [facility], and patient's urine output has been in the order of 5-10 ML per hour. Gastric drainage in the last 24 hours was in the order of 1.2 L of blood-tinged gastric output and anticoagulation will remain on hold right now. Pancultures will be sent, patient was started on empiric antibiotics in the form of meropenem. In view of the severe lactic acidosis there is a suspicion for ischemic bowel. Echocardiogram has been reviewed showing severe global hypokinesis of the LV, moderate concentric LVH, severely impaired left ventricular systolic function with an EF between 20-25%, severe mitral reg urgitation, severe tricuspid regurgitation, mild to moderate pulmonary hypertension, with PA pressure of 49 mmHg. On the 12/16/2019 patient seen in follow-up in the intensive care unit. Overnight patient has failed to show significant progress, and continued to deteriorate, she remains on assist control mode of ventilation, with a rate of 24, Rafi is 400, FiO2 is 50%, and PEEP of 5. This morning his blood gases showed a pO2 of 78, pCO2 34, and pH of 7.33. Patient remains on bicarbonate infusion at a rate of 150 ML per hour, D5 half-normal saline infusing at a rate of 75 ML per hour, venous and is currently at 27 mics per minute, and improving and is at 20 mics per kilo per minute. Overnight patient has put out 450 ML of dark bloody output from the OG tube, she has made no urine, her lactic acid continues to rise, and is up to 16.9 on today's labs, patient is currently in atrial fibrillation currently with a rate of 81 BPM. This morning his blood work revealed white blood cell count 22,000, hemoglobin of 13.3, INR of 2.7 and patient was given 2 units of packed red blood cells yesterday and 10 mg of vitamin K yesterday. Sodium is 131, potassium is 5.6, chloride is 90, CO2 is 19, B1 is 28 creatinine is 1.85, LFTs are still significantly elevated, with AST of 6737, ALT of 2908, alkaline phosphatase of 203. Patient developed hypoglycemia which is being treated. Nephrology was consulted for acute kidney injury, anuria, and hyperkalemia. Patient still remains on high doses of steroids. Yesterday's echocardiogram revealed the ear cardiomyopathy with ejection fraction down to 25%. In view of all these findings, severe hypotension, persistent lactic acidosis, suspicion for ischemic bowel, patient is a poor surgical candidate, after some discussion the patient's family decided to proceed with withdrawal of life support and proceeding with comfort care measures. We updated the patient's family again today, and they are determined on going ahead with comfort care especially in view of lack of response to aggressive medical treatment Objective - Vital Signs Vital signs: Vital Signs Temp 97.3 F L 12/16/19 08:00 Pulse 66 12/16/19 10:00 Resp 30 H 12/16/19 10:00 BP 75/38 12/16/19 10:00 Pulse Ox 93 L 12/16/19 10:00 Intake & Output 12/15/19 12/16/19 12/16/19 18:59 06:59 18:59 Intake Total 2423.959 2357.899 933.347 Output Total 71 201 0 Balance 2352.959 2156.899 933.347 Weight 78.5 kg Intake: IV 1917 1761 721 0.9 flush 3 Dextrose 5% in Water 1, 900 825 300 000 ml @ 75 mls/hr IV . [id number] TONY with Sodium Bicarb (1 Meq/ml) 150 ml Rx#:[id number] Dextrose 5%-0.45% NaCl 1, 825 150 000 ml @ 75 mls/hr IV . [id number] TONY Rx#:[id number] Meropenem 1 gm In Sodium 100 Chloride 0.9% 100 ml @ 200 mls/hr IVPB ONCE ONE Rx#:[id number] Meropenem 1 gm In Sodium 100 Chloride 0.9% 100 ml @ 33 .333 mls/hr IVPB Q12HR [facility] Rx#:[id number] Phytonadione 10 mg In 50 Sodium Chloride 0.9% 50 ml @ 100 mls/hr IVPB ONCE STA Rx#:[id number] Pressure Bags 39 36 21 Sodium Chloride 0.45% 1, 750 300 000 ml @ 75 mls/hr IV . [id number] ONE Rx#:[id number] Intake, IV Titration 203.959 257.899 212.347 Amount Diltiazem 125 mg In 7.667 117.333 Sodium Chloride 0.9% 100 ml @ Per Protocol IV .Q0M [facility] Rx#:[id number] Morphine Sulfate (100 mg/ 0.187 2 ml) 100 mg In Sodium Chloride 0.9% 100 ml @ 1 MG/HR 1.02 mls/hr IV . Q24H [facility] Rx#:[id number] Norepinephrine 32 mg In 90.874 100.056 51.181 Sodium Chloride 0.9% 218 ml @ 0.05 MCG/KG/MIN 1. 512 mls/hr IV .Q24H [facility] Rx#:[id number] propofoL 1,000 mg In 105.418 157.843 43.646 Empty Bag 1 bag @ Titrate IV .Q0M [facility] Rx#: [id number] Blood Product 303 339 Ffp 24 Cpd Unit 0 339 [id number] Ffp 24 Cpd Unit 303 [id number] Output: Gastric Drainage 150 Urine 71 51 0 Other: Voiding Method Indwelling Catheter Indwelling Catheter Indwelling Catheter # Voids 0 ABP, PAP, CO, CI - Last Documented Arterial Blood Pressure 109/34 - Exam GENERAL EXAM: Intubated, sedated, 84-year-old white female an assist-control mode of ventilation HEAD: Normocephalic/atraumatic. EYES: Normal reaction of pupils, equal size. Conjunctiva pink, sclera white. NOSE: Clear with pink turbinates. MOUTH: ET tube in place, OG tube in place, OG to low intermittent suction, with the large amount of blood-tinged output THROAT: No erythema or exudates. NECK: No masses, no JVD, no thyroid enlargement, no adenopathy. Anterior neck surgical incision, clean dry and intact CHEST: No chest wall deformity. Symmetrical expansion. LUNGS: Equal air entry with no crackles, wheeze, rhonchi or dullness. CVS: Regular rate and rhythm, normal S1 and S2, no gallops, no murmurs, no rubs ABDOMEN: Soft, nontender. No hepatosplenomegaly, normal bowel sounds, no guarding or rigidity. EXTREMITIES: No clubbing, no edema, no cyanosis, 2+ pulses and upper and lower extremities. MUSCULOSKELETAL: Muscle strength and tone normal. SPINE: No scoliosis or deformity SKIN: No rashes CENTRAL NERVOUS SYSTEM: Sedated, intubated. No focal deficits, tone is normal in all 4 extremities. - Labs CBC & Chem 7: 12/16/19 05:20 12/16/19 05:20 Labs: Abnormal Lab Results - Last 24 Hours (Table) 12/15/19 12/15/19 12/15/19 Range/Units 17:00 17:00 20:45 WBC (3.8-10.6) k/uL MCHC (31.0-37.0) g/dL Plt Count (150-450) k/uL Neutrophils # (Manual) (1.3-7.7) k/uL Lymphocytes # (Manual) (1.0-4.8) k/uL Metamyelocytes # (Man) (0) k/uL Myelocytes # (Manual) (0) k/uL Nucleated RBCs (0-0) /100 WBC PT (9.0-12.0) sec INR (<1.2) ABG pH (7.35-7.45) ABG pCO2 (35-45) mmHg ABG pO2 (83-108) mmHg ABG HCO3 (21-25) mmol/L ABG O2 Saturation (94-97) % Sodium (137-145) mmol/L Potassium (3.5-5.1) mmol/L Chloride (98-107) mmol/L Carbon Dioxide (22-30) mmol/L BUN (7-17) mg/dL Creatinine (0.52-1.04) mg/dL Glucose (74-99) mg/dL POC Glucose (mg/dL) (75-99) mg/dL Plasma Lactic Acid Myles 12.4 H* (0.7-2.0) mmol/L Calcium (8.4-10.2) mg/dL Total Bilirubin (0.2-1.3) mg/dL AST (14-36) U/L ALT (4-34) U/L Alkaline Phosphatase (38-126) U/L Troponin I 0.604 H* (0.000-0.034) ng/mL Total Protein (6.3-8.2) g/dL Albumin (3.5-5.0) g/dL Urine Appearance Turbid H (Clear) Urine Protein 2+ H (Negative) Urine Glucose (UA) Trace H (Negative) Urine Blood Large H (Negative) Ur Leukocyte Esterase Large H (Negative) Urine RBC 162 H (0-5) /hpf Urine WBC 167 H (0-5) /hpf Urine WBC Clumps Rare H (None) /hpf Urine Bacteria Rare H (None) /hpf Urine Mucus Rare H (None) /hpf 12/15/19 12/15/19 12/15/19 Range/Units 21:13 21:15 23:25 WBC (3.8-10.6) k/uL MCHC (31.0-37.0) g/dL Plt Count (150-450) k/uL Neutrophils # (Manual) (1.3-7.7) k/uL Lymphocytes # (Manual) (1.0-4.8) k/uL Metamyelocytes # (Man) (0) k/uL Myelocytes # (Manual) (0) k/uL Nucleated RBCs (0-0) /100 WBC PT (9.0-12.0) sec INR (<1.2) ABG pH (7.35-7.45) ABG pCO2 (35-45) mmHg ABG pO2 (83-108) mmHg ABG HCO3 (21-25) mmol/L ABG O2 Saturation (94-97) % Sodium (137-145) mmol/L Potassium (3.5-5.1) mmol/L Chloride (98-107) mmol/L Carbon Dioxide (22-30) mmol/L BUN (7-17) mg/dL Creatinine (0.52-1.04) mg/dL Glucose (74-99) mg/dL POC Glucose (mg/dL) 128 H (75-99) mg/dL Plasma Lactic Acid Myles 13.2 H* 13.7 H* (0.7-2.0) mmol/L Calcium (8.4-10.2) mg/dL Total Bilirubin (0.2-1.3) mg/dL AST (14-36) U/L ALT (4-34) U/L Alkaline Phosphatase (38-126) U/L Troponin I (0.000-0.034) ng/mL Total Protein (6.3-8.2) g/dL Albumin (3.5-5.0) g/dL Urine Appearance (Clear) Urine Protein (Negative) Urine Glucose (UA) (Negative) Urine Blood (Negative) Ur Leukocyte Esterase (Negative) Urine RBC (0-5) /hpf Urine WBC (0-5) /hpf Urine WBC Clumps (None) /hpf Urine Bacteria (None) /hpf Urine Mucus (None) /hpf 12/16/19 12/16/19 12/16/19 Range/Units 02:35 05:20 05:20 WBC 22.0 H (3.8-10.6) k/uL MCHC 30.5 L (31.0-37.0) g/dL Plt Count 103 L (150-450) k/uL Neutrophils # (Manual) 19.50 H (1.3-7.7) k/uL Lymphocytes # (Manual) 0.66 L (1.0-4.8) k/uL Metamyelocytes # (Man) 1.54 H (0) k/uL Myelocytes # (Manual) 0.22 H (0) k/uL Nucleated RBCs 2 H (0-0) /100 WBC PT (9.0-12.0) sec INR (<1.2) ABG pH (7.35-7.45) ABG pCO2 (35-45) mmHg ABG pO2 (83-108) mmHg ABG HCO3 (21-25) mmol/L ABG O2 Saturation (94-97) % Sodium 131 L (137-145) mmol/L Potassium 5.6 H (3.5-5.1) mmol/L Chloride 90 L (98-107) mmol/L Carbon Dioxide 19 L (22-30) mmol/L BUN 28 H (7-17) mg/dL Creatinine 1.85 H (0.52-1.04) mg/dL Glucose 38 L* (74-99) mg/dL POC Glucose (mg/dL) (75-99) mg/dL Plasma Lactic Acid Myles 15.0 H* (0.7-2.0) mmol/L Calcium 7.7 L (8.4-10.2) mg/dL Total Bilirubin 6.3 H (0.2-1.3) mg/dL AST 6737 H (14-36) U/L ALT 2988 H (4-34) U/L Alkaline Phosphatase 203 H (38-126) U/L Troponin I (0.000-0.034) ng/mL Total Protein 4.4 L (6.3-8.2) g/dL Albumin 2.3 L (3.5-5.0) g/dL Urine Appearance (Clear) Urine Protein (Negative) Urine Glucose (UA) (Negative) Urine Blood (Negative) Ur Leukocyte Esterase (Negative) Urine RBC (0-5) /hpf Urine WBC (0-5) /hpf Urine WBC Clumps (None) /hpf Urine Bacteria (None) /hpf Urine Mucus (None) /hpf 12/16/19 12/16/19 12/16/19 Range/Units 05:20 05:20 07:27 WBC (3.8-10.6) k/uL MCHC (31.0-37.0) g/dL Plt Count (150-450) k/uL Neutrophils # (Manual) (1.3-7.7) k/uL Lymphocytes # (Manual) (1.0-4.8) k/uL Metamyelocytes # (Man) (0) k/uL Myelocytes # (Manual) (0) k/uL Nucleated RBCs (0-0) /100 WBC PT 25.9 H (9.0-12.0) sec INR 2.7 H (<1.2) ABG pH 7.33 L (7.35-7.45) ABG pCO2 34 L (35-45) mmHg ABG pO2 78 L (83-108) mmHg ABG HCO3 18 L (21-25) mmol/L ABG O2 Saturation 93.5 L (94-97) % Sodium (137-145) mmol/L Potassium (3.5-5.1) mmol/L Chloride (98-107) mmol/L Carbon Dioxide (22-30) mmol/L BUN (7-17) mg/dL Creatinine (0.52-1.04) mg/dL Glucose (74-99) mg/dL POC Glucose (mg/dL) (75-99) mg/dL Plasma Lactic Acid Myles 16.9 H* (0.7-2.0) mmol/L Calcium (8.4-10.2) mg/dL Total Bilirubin (0.2-1.3) mg/dL AST (14-36) U/L ALT (4-34) U/L Alkaline Phosphatase (38-126) U/L Troponin I (0.000-0.034) ng/mL Total Protein (6.3-8.2) g/dL Albumin (3.5-5.0) g/dL Urine Appearance (Clear) Urine Protein (Negative) Urine Glucose (UA) (Negative) Urine Blood (Negative) Ur Leukocyte Esterase (Negative) Urine RBC (0-5) /hpf Urine WBC (0-5) /hpf Urine WBC Clumps (None) /hpf Urine Bacteria (None) /hpf Urine Mucus (None) /hpf 12/16/19 Range/Units 07:42 WBC (3.8-10.6) k/uL MCHC (31.0-37.0) g/dL Plt Count (150-450) k/uL Neutrophils # (Manual) (1.3-7.7) k/uL Lymphocytes # (Manual) (1.0-4.8) k/uL Metamyelocytes # (Man) (0) k/uL Myelocytes # (Manual) (0) k/uL Nucleated RBCs (0-0) /100 WBC PT (9.0-12.0) sec INR (<1.2) ABG pH (7.35-7.45) ABG pCO2 (35-45) mmHg ABG pO2 (83-108) mmHg ABG HCO3 (21-25) mmol/L ABG O2 Saturation (94-97) % Sodium (137-145) mmol/L Potassium (3.5-5.1) mmol/L Chloride (98-107) mmol/L Carbon Dioxide (22-30) mmol/L BUN (7-17) mg/dL Creatinine (0.52-1.04) mg/dL Glucose (74-99) mg/dL POC Glucose (mg/dL) 163 H (75-99) mg/dL Plasma Lactic Acid Myles (0.7-2.0) mmol/L Calcium (8.4-10.2) mg/dL Total Bilirubin (0.2-1.3) mg/dL AST (14-36) U/L ALT (4-34) U/L Alkaline Phosphatase (38-126) U/L Troponin I (0.000-0.034) ng/mL Total Protein (6.3-8.2) g/dL Albumin (3.5-5.0) g/dL Urine Appearance (Clear) Urine Protein (Negative) Urine Glucose (UA) (Negative) Urine Blood (Negative) Ur Leukocyte Esterase (Negative) Urine RBC (0-5) /hpf Urine WBC (0-5) /hpf Urine WBC Clumps (None) /hpf Urine Bacteria (None) /hpf Urine Mucus (None) /hpf Microbiology - Last 24 Hours (Table) 12/15/19 20:45 Urine Culture - Preliminary Urine,Voided 12/15/19 20:48 Gram Stain - Preliminary Sputum Sputum Culture - Preliminary Assessment and Plan Plan: Assessment: #1. Acute hypotension and hypothermia, likely related to possibility of ischemic bowel. Possibility of septic shock is considered however seems to be less likely, adrenal crisis was initially considered, however seems be less likely #2. Severe lactic acidosis, likely related to ischemic bowel, persistent despite the fluid resuscitation. In today on 12/16/2019 patient remains severely hypotensive requiring high doses of vasopressors, and a lactic acid continues to be on the rise #3. Acute kidney injury and acute elevation of the transaminases possibly related to severe hypertension, and ischemic bowel #4. Left thyroid nodule with the biopsy with benign findings, causing compressive symptoms, status post thyroidectomy, postoperative day 3 #5. Multiorgan failure related to shock, and possibility of ischemic bowel #6. Increased blood-tinged output from the NG tube, possibly related to gastritis, anticoagulation remains on hold #7. Severely impaired left ventricular systolic function, cardiomyopathy, with EF of 20-25%, moderately severe pulmonary hypertension, severe mitral regurgitation and severe tricuspid regurgitation. Consider possibility of acute myocardial infarction Cardiology is following #8. Left arm numbness with acute onset this morning with a brain CT showing atrophy and chronic appearing periventricular and deep white matter ischemic type changes. CT angios of the head and neck showed bilateral internal carotid artery origins narrowing greater than 70% #9. Large right-sided pleural effusion and a smaller left pleural effusion, with ultrasound of the chest showing 13.7 cm fluid pocket on the right, and 5.5 cm on the left #10. Chronic atrial fibrillation, on Eliquis, which we'll place on hold #11. Hypertension #12. Macular degeneration #13. History of smoking in remission for last 20 years #14. Extensive vascular calcification within the aorta, and within the bilateral kidneys Plan: Patient continues to do very poorly, remains on vasopressors, high doses of stress IV hydrocortisone, lactic acid continues to rise, renal profile continues to worsen, patient is not producing any urine, there is evidence of liver injury, likely related to hypoperfusion. Patient has evidence of multiorgan failure likely related to ischemic bowel, there is also possibility of acute non-ST elevated myocardial infarction. We discussed with the family who has decided to proceed with withdrawal of life support, and proceeding with comfort care at this time. I performed a history & physical examination of the patient and discussed their management with my nurse practitioner, Estela Stanton. I reviewed the nurse practitioner's note and agree with the documented findings and plan of care. Lung sounds are positive for diminished breath sounds. The findings and the impression was discussed with the patient. I attest to the documentation by the nurse practitioner. Time with Patient: Greater than 30
[2019-12-16] MEDS ORDERED: HYDROCORTISONE SUCCINATE 100 MG/2 ML VIAL IV SCH (16:00)
--- NOTE | 2019-12-17 14:00 | CDI ---
Documentation Clarification Form Date: 12/21/19 From: Celestina Galarza Phone: If you have a question about this query, please contact Elena Sena, Director Education at [phone] between 8am and 5pm. Admit Date: Discharge Date: Patient Name: Tita Thomson Visit Number: [id number] ATTENTION: The Clinical Documentation Specialists (CDI) and [facility] Coding Staff appreciate your assistance in clarifying documentation. Please respond to the clarification below the line at the bottom and electronically sign. The CDI & [facility] Coding staff will review the response and follow-up if needed. Please note: Queries are made part of the Legal Health Record. If you have any questions, please contact the author of this message via ITS. Dear Dr. Miller The patient presented with the following: thyroid nodules with thyroidectomy with development of ischemic bowel. History/Risk Factors: Calcified stenosis of the aorta, shock, multi organ failure Clinical Indicators: abdominal pain, confusion Lab findings: WBC 15.3 Radiology findings: Small amount of free fluid in the pelvis, calcifications within the aorta and bilateral kidneys Vital Signs: T. 91.0, P. 103, R. 18, BP 99/41 Treatment: Plasma transfusion In your professional opinion, can you please clarify the following? Ischemia of large intestine Ischemia of small intestine Other, please specify Unable to determine Acuity of the bowel ischemia Acute Chronic Other Unable to determine Ischemia of large and small intestine., Acute ischemia of bowel. MTDD
--- NOTE | 2019-12-17 14:13 | CDI ---
Documentation Clarification Form Date: 12/17/19 From: Celestina Galarza Phone: If you have a question about this query, please contact Elena Sena, Kayaking Instructor at [phone] between 8am and 5pm. Admit Date: 12/13/19 Discharge Date:12/16/19 Patient Name: Tita Thomson Visit Number: [id number] ATTENTION: The Clinical Documentation Specialists (CDI) and [facility] Coding Staff appreciate your assistance in clarifying documentation. Please respond to the clarification below the line at the bottom and electronically sign. The CDI & [facility] Coding staff will review the response and follow-up if needed. Please note: Queries are made part of the Legal Health Record. If you have any questions, please contact the author of this message via ITS. Dear Dr. Boudreaux Shock is documented in the Cardiology, Nephrology and Pulmonology consult notes and progress notes and requires clarification. Patient history/risk factors: S/P Left thyroidectomy 12/12 with adrenal crisis, Ischemic bowel, calcified aorta, GIB, possible CVA this admission, SUPRIYA with ATN, Shock Liver, Acute Systolic CHF Clinical Indicators: Hypotension and end organ damage has been documented in consults and progress notes. 12/16/19 Pulmonology Progress Note - "Possibility of septic shock is considered however seems to be less likely, adrenal crisis was initially considered, however seems be less likely Multiorgan failure related to shock, and possibility of ischemic bowel ". 12/15 Nephrology Progress Note: "She has been in severe shock, maintained on high doses of Levophed and patient has also been hypoglycemic. ASSESSMENT: Acute kidney injury, ischemic ATN and shock, currently oliguric. 12/14 Cardiology Consult: "Acute hypotension and hypothermia, suspect shock secondary to acute adrenal crisis " 12/13 1800 V/S: 91.4 Core temp, HR 85 with week pulses, RR 24 on Mechanical vent, B/P 75/36, Spo2 97% on 50% MV Treatment: 12/13 Levophed Gtt- Titrate for B/P 12/13 Vasopressin Gtt @ 4.59 ml/hr 12/15 2 units FFP transfused 12/13 D5.45@ 125 cc/hr x 1L followed by 75 cc/hr until 12/15 0918 12/13 D5W w HCO3 @ 75 cc/hr x 1 bag 12/13 Solucortef 100mg IVP q 6 hrs Meropenem 1 gm IVPB Q 122 hrs In your professional opinion, can you please specify the type of shock if known? Septic Shock Suspected or known causative organism Any associated organ failure Cardiogenic Shock Cause Hypovolemic Shock Cause Other, please specify Unable to determine Unable to determine, not septic shock. [facility]
--- NOTE | 2019-12-20 14:04 | P.DS ---
Providers Date of admission: 12/14/19 15:55 Expected date of discharge: 12/16/19 Attending physician: Zach Miller Consults: 12/13/19 11:51 Consult Physician Routine Consulting Provider: Kourtney Boudreaux Consult Reason/Comments: Medical management Do you want consulting provider notified?: Yes 12/14/19 10:35 Consult Physician Routine Consulting Provider: Josue Kunz Consult Reason/Comments: Possiable CVA vs TIA Do you want consulting provider notified?: Yes Consult Physician Routine Consulting Provider: Diamond Arreguin Consult Reason/Comments: SUPRIYA Do you want consulting provider notified?: Yes 12/14/19 11:06 Consult Physician Routine Consulting Provider: Leonela Lorenz Consult Reason/Comments: parathyroidectomy Do you want consulting provider notified?: Yes 12/14/19 13:58 Consult Physician Routine Consulting Provider: Bro Armstrong Consult Reason/Comments: right pleural effusion and 1.7 cm lung mass on head and neck CT Do you want consulting provider notified?: Yes 12/14/19 13:59 Consult Physician Routine Consulting Provider: Anjel Sethi Consult Reason/Comments: a fib, Do you want consulting provider notified?: Yes 12/15/19 07:42 Consult Physician Routine Consulting Provider: Isabel Hammer Consult Reason/Comments: hepatic failure Do you want consulting provider notified?: Yes Primary care physician: Joey Freed Hospital Course: Preliminary cause of aortic occlusion the cause of flow-limiting stenosis contributing to ischemic bowel and multiorgan failure 1. Left thyroid nodule status post left thyroidectomy. 2. Acute hypotension and hypothermia 3. 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 Ischemic bowel 5. Severe lactic acidosis possibly due to ischemic bowel 6. Multiorgan failure related to shock and ischemic bowel 7. Increased blood-tinged output from NG tube Poss related to gastritis. Anticoagulation remains on hold 8. Left arm weakness Possibly related to TIA 9. Chronic atrial fibrillation 10. Bilateral ICA stenosis of greater than 70% 11. Severely impaired left ventricular systolic function, cardiomyopathy, with EF of 20-25%, moderately severe pulmonary hypertension, severe mitral regurgitation and severe tricuspid regurgitation. Consider possibility of acute myocardial infarction Cardiology is following 12. Acute kidney injury Due to hypoperfusion 13. Shocked liver Hospital course This is a 84-year-old female who had a left thyroidectomy on 12/13/2019 for a large left thyroid nodulemeasuring 4 cm. 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 patient was admitted to medical surgical floor following her procedure, today is postoperative day 1, and early in the morning "stroke was called for symptoms of left arm weakness, patient was also hypoglycemic, she was given an amp of 50% dextrose. Brain CT without contrast revealed atrophy with chronic appearing periventricular and deep white matter ischemic type changes.angiography CT showed bilateral internal carotid artery origins were narrowing greater than 70%, and a 1.7 cm nodule adjacent to moderate right pleural effusion within the right upper lung field. Patient had computed tomography scan of the abdomen and pelvis showing extensive vascular calcification with the aortaespecially at the level of the diaphragm. This may be creating a flow limiting stenosis. Vascular calcifications within the bilateral kidneys. Patient was given fluid resuscitation and vasopressor support. Patient did require to be intubated and placed on mechanical ventilation. She had significant blood-tinged output from her NG tube their concerns for GI bleed likely related to the gastritis. Patient also is having coagulopathy due to her liver failure she did receive FFP and vitamin K. Patient failed to show any improvement with aggressive treatment. She continued to deteriorate. Her echo also showed n EF of 25% patient's overall condition was poor and guarded. She did not improve with aggressive treatment. Family was informed of patient's condition and it was determined to proceed with comfort care measures. Patient on 12/16/2019. Please refer to chart for any further details. Physician Supervisor/Port Director note has been reviewed by physician. Signing provider agrees with the documented findings, assessment, and plan of care. Plan - Discharge Summary Discharge Rx Participant: Yes New Discharge Prescriptions: No Action Vit C/E/Zn/Coppr/Lutein/Zeaxan [Preservision Areds 2 Softgel] 1 each PO BID Cholecalciferol [Vitamin D3 (25 Mcg = 1000 Iu)] 1,000 unit PO DAILY lisinopriL [Zestril] 20 mg PO HS Apixaban [Eliquis] 2.5 mg PO BID Potassium Chloride 16 meq PO DAILY Furosemide [Lasix] 40 mg PO DAILY Calcium Carbonate [Tums] 500 mg PO DAILY Metoprolol Tartrate [Lopressor] 75 mg PO 0800,1330 Metoprolol Tartrate [Lopressor] 50 mg PO 1900 Discharge Medication List Apixaban [Eliquis] 2.5 mg PO BID 09/07/19 [History] Cholecalciferol [Vitamin D3 (25 Mcg = 1000 Iu)] 1,000 unit PO DAILY 09/07/19 [History] Vit C/E/Zn/Coppr/Lutein/Zeaxan [Preservision Areds 2 Softgel] 1 each PO BID 09/07/19 [History] lisinopriL [Zestril] 20 mg PO HS 09/07/19 [History] Calcium Carbonate [Tums] 500 mg PO DAILY 11/22/19 [History] Furosemide [Lasix] 40 mg PO DAILY 11/22/19 [History] Potassium Chloride 16 meq PO DAILY 11/22/19 [History] Metoprolol Tartrate [Lopressor] 50 mg PO 1900 12/08/19 [History] Metoprolol Tartrate [Lopressor] 75 mg PO 0800,1330 12/08/19 [History] Follow up Appointment(s)/Referral(s): Zach Miller MD [STAFF PHYSICIAN] - 12/21/19 2:15 pm Activity/Diet/Wound Care/Special Instructions: Indigent form placed in patient chart. Please send to [facility] at d/c Discharge Disposition: - Preliminary Cause of Preliminary Cause of : aortic occlusion the cause of flow-limiting stenosis contributing to ischem
[2019-12-23] MEDS: HYDROmorphone 0.5 MG/0.5 ML SYRINGE IVP PRN (17:55)
--- NOTE | 2019-12-27 14:58 | CDI ---
Documentation Clarification Form Mortality Review Date: 12/27/2019 02:30:44 PM From: Gely Leiva RN, CCDS Admit Date: 12/14/2019 03:55:00 PM Patient Name: Tita Thomson Visit Number: [id number] Discharge Date: 12/16/2019 01:10:00 PM ATTENTION: The Clinical Documentation Specialists (CDI) and [facility] Coding Staff appreciate your assistance in clarifying documentation. Please respond to the clarification below the line at the bottom and electronically sign. The CDI & [facility] Coding staff will review the response and follow-up if needed. Please note: Queries are made part of the Legal Health Record. If you have any questions, please contact the author of this message via ITS. Dr. Zach Miller TIA and CVA is documented as a diagnosis in the progress notes and requires clarification of conflicting documentation by the Attending MD History/risk factors: Atrial Fib, HTN, s/p left thyroidectomy Clinical Indicators: 12/14 Neurology progress Note: "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" 12/14 Pulmonary Progress Note: "Left arm numbness with acute onset this morning with a brain CT showing atrophy and chronic appearing periventricular and deep white matter ischemic type changes. CT angio of the head and neck showed bilateral internal carotid artery origins narrowing greater than 70%." 12/14 Surgical Progress Note: "Left arm weakness, possibly related to TIA." 12/14 Medical Progress note: "Left arm weakness, improved with hx of chronic weakness - possible acute CVA." 12/13 CTA Brain: "Bilateral internal carotid artery origins have narrowing greater than 70%. 2. Normal sitka of Amin. 3. There is a 1.7 cm nodule adjacent to moderate right pleural effusion within the right upper lung field. CT Brain: Atrophy with chronic appearing periventricular and deep white matter ischemic type changes Treatment: 12/13 Eliquis 2.5 mg po BID 12/13 Solu-cortef 100 mg IVP Q 6 hrs Patient was maintained on Levophed, Neosynephrine and Vasopressin Diprovan Gtt for sedation while patient on mechanical ventilator In your professional opinion, please clarify each of the following TIA CVA (Specify cause if known) Stenosis/Occlusion of bilateral carotid arteries >70% Embolic Thrombolytic Hypertension Other (please specify) Unable to Determine Laterality: Left Right Bilateral Other (please specify) Unable to Determine Also, indicate any deficits related to the Stroke/CVA in your documentation (such as aphasia, ataxia, cognitive deficits, dysphagia, hemiplegiaetc.) Also Specify if this condition is related to pre-existing conditions (specify) or the operative procedure. *If related to operative procedure specify if expected, unexpected, or inherent to procedure. (Last Revision: December 2016) Unable to determine if patient really had CVA. Patient had acute aortic occlusion due to severe stenosis of the aorta MTDD
== END 2019-12-16 13:10 | disposition expired | DRG 981 ==
LOC: OR 08:13 → 6NMEDSUR 11:38 → 3SCARD 12-14 10:17 → 2SICU 12-14 15:48 → OR 12-14 15:57 → 2SICU 12-14 15:59
PROVIDERS: ADMIT Surgery; ATTEND Surgery
PROC: 0GBG0ZZ Excision of Left Thyroid Gland Lobe, Open Approach (ICD-10-PCS; principal; 2019-12-13 09:35)
PROC: 5A1945Z Respiratory Ventilation, 24-96 Consecutive Hours (ICD-10-PCS; 2019-12-14)
PROC: 0BH17EZ Insertion of Endotracheal Airway into Trachea, Via Natural or Artificial Opening (ICD-10-PCS; 2019-12-14)
PROC: 03HY32Z Insertion of Monitoring Device into Upper Artery, Percutaneous Approach (ICD-10-PCS; 2019-12-14)
PROC: 06HM33Z Insertion of Infusion Device into Right Femoral Vein, Percutaneous Approach (ICD-10-PCS; 2019-12-14)
PROC: 0D9670Z Drainage of Stomach with Drainage Device, Via Natural or Artificial Opening (ICD-10-PCS; 2019-12-14)
PROC: 30243K1 Transfusion of Nonautologous Frozen Plasma into Central Vein, Percutaneous Approach (ICD-10-PCS; 2019-12-15)
DX: K55.039 Acute (reversible) ischemia of large intestine, extent unspecified (principal); I50.21 Acute systolic (congestive) heart failure; I63.9 Cerebral infarction, unspecified; J96.01 Acute respiratory failure with hypoxia; K72.00 Acute and subacute hepatic failure without coma; N17.0 Acute kidney failure with tubular necrosis; K29.71 Gastritis, unspecified, with bleeding; G93.41 Metabolic encephalopathy; D68.9 Coagulation defect, unspecified; E87.2 Acidosis; I42.9 Cardiomyopathy, unspecified; I48.19 Other persistent atrial fibrillation; J98.11 Atelectasis; R57.9 Shock, unspecified; K55.019 Acute (reversible) ischemia of small intestine, extent unspecified; I27.20 Pulmonary hypertension, unspecified; K80.50 Calculus of bile duct without cholangitis or cholecystitis without obstruction; I11.0 Hypertensive heart disease with heart failure; I70.0 Atherosclerosis of aorta; G83.24 Monoplegia of upper limb affecting left nondominant side; Z51.5 Encounter for palliative care; Z66 Do not resuscitate; E04.1 Nontoxic single thyroid nodule; E16.2 Hypoglycemia, unspecified; E87.5 Hyperkalemia; H35.30 Unspecified macular degeneration; I08.1 Rheumatic disorders of both mitral and tricuspid valves; I65.23 Occlusion and stenosis of bilateral carotid arteries; R91.1 Solitary pulmonary nodule; H54.62 Unqualified visual loss, left eye, normal vision right eye; I49.3 Ventricular premature depolarization; Z79.01 Long term (current) use of anticoagulants; Z79.899 Other long term (current) drug therapy; Z87.891 Personal history of nicotine dependence; Z98.42 Cataract extraction status, left eye; Z98.41 Cataract extraction status, right eye; Z88.0 Allergy status to penicillin; Z82.49 Family history of ischemic heart disease and other diseases of the circulatory system
CPT/HCPCS: 70450; 70496; 70498; 71045; 74176; 76604; 76705; 80048; 80053; 80061; 80074; 81001; 82024; 82533; 82607; 82746; 82805; 83036; 83605; 83735; 84100; 84439; 84443; 84480; 84484; 85025; 85027; 85610; 85730; 86850; 86870; 86880; 86900; 86901; 86902; 87040; 87070; 87077; 87086; 87186; 87205; 88307; 93306; 94002; 94003